=== PATIENT | female | born 1950 | race Caucasian/White ===

== ENCOUNTER 2023-07-26 13:39 | Emergency (ER) | payer MEDICARE, OTHER, SELFPAY ==
[2023-07-26 13:47] VITALS: BP 133/60
[2023-07-26 14:05] LABS: % Basophils 0.4 % (0-2); % Eosinophils 0.5 % (0-6); % Immature Granulocytes 0.2 % (0-0.5); % Lymphocytes 24.5 % (20.5-51.1); % Monocytes 10.8 % (1.7-9.3); % Neutrophils 63.6 % (42.2-75.2); Absolute Lymphocytes 1.3 10^3/uL (1.2-3.4); Absolute Monocytes 0.6 10^3/uL (0.1-0.6); Absolute Neutrophils 3.5 10^3/uL (1.4-6.5); Hematocrit 35.6 % (37.0-47.0); Mean Corp Hgb Conc. 33.7 g/dL (33.0-37.0); Mean Corpuscular Hgb 29.3 pg (27.0-31.0); Mean Platelet Volume 9.3 fL (7.4-10.4); Nucleated Red Blood Cells % 0 %; Platelet Count 243 10^3/uL (130-400); Red Blood Cell Count 4.09 10^6/uL (4.20-5.40); Red Cell Dist. Width 13.7 % (11.5-14.5); White Blood Cell Count 5.5 10^3/uL (4.8-10.8)
[2023-07-26 14:21] LABS: ALT (SGPT) 11 U/L (0-35); AST (SGOT) 24 U/L (14-36); Albumin 4.1 g/dl (3.5-5.0); Alkaline Phosphatase 63 U/L (38-126); Blood Urea Nitrogen 17 mg/dl (7-17); Calcium 9.7 mg/dl (8.4-10.2); Carbon Dioxide 32 mmol/L (22-30); Chloride 99 mmol/L (98-107); Glucose 85 mg/dl (70-99); Potassium 4.8 mmol/L (3.5-5.1); Sodium 137 mmol/L (135-145); Total Protein 6.8 g/dl (6.3-8.2); eGFR > 60.00
[2023-07-26 16:15] LABS: Urine Albumin Negative (Neg - Trace); Urine Bilirubin Negative (Negative); Urine Character Clear (Clear); Urine Color Yellow; Urine Glucose Negative (Negative); Urine Ketone Negative (Negative); Urine Leukocyte 1+ (Negative); Urine Nitrite Negative (Negative); Urine Occult Blood Negative (Negative); Urine Urobilinogen Negative (Neg - 1+); Urine pH 6.5 (5.0-9.0)
[2023-07-26 16:24] LABS: Urine Bacteria Few (Negative); Urine Red Blood Cell 0-2 /HPF (0-2)
--- NOTE | 2023-07-26 16:32 | ED.GENMED ---
History of Present Illness
General
Chief Complaint: Fever
Time Seen by Provider: 07/26/23 15:13
Travel History
Have you had any contact with someone who has COVID-19?: No
Do you have any symptoms of coronavirus? Fever > 100 degrees, chills, cough, shortness of breath, sore throat, loss of taste or smell, muscle aches, or headache?: No
History of Present Illness
History of Present Illness:
73-year-old female with history of Parkinson's disease presents for evaluation of increased tremors and generalized weakness. She has had a hard time walking today. She also notes urinary urgency and no overall warm sensation. Her was
convinced that she had a fever today. She has not taken any antipyretics. She denies any coughing, shortness of breath, chest pain, abdominal pain, nausea, or vomiting. She has been compliant with all of her parkinsonian medications
Past History
Past History
ED Past Medical History: Cancer and Other (parkinsons)
ED Past Surgical History: Other
Social History
Tobacco: Non-smoker
Alcohol: None
Drug: None
Personal:
Living: with family
Review of Systems
Review of Systems
Allergies reviewed?: Yes
All Other Systems: ROS reviewed and negative except as documented in HPI and ROS
Phy Exam
Physical Exam
Physical Exam:
GEN: Well appearing, NAD, WDWN
HEENT: Oral mucosa moist, no scleral icterus
Cardiac: Regular rate
Lung: No respiratory distress, no tachypnea
MSK: No gross deformity or injuries
Skin: Good color, no pallor or jaundice, no rashes
Neuro: AO x3, moves all extremities freely, resting extremity tremor noted, bilateral upper and lower extremity strength is 5 out of 5 in all kern of flexion and extension
Psych: Calm, cooperative
Course
Orders/Labs/Results
Orders:
Orders
07/26/23 13:56
CMP [Comprehensive Metabolic Panel] Urgent
Complete Blood Count/With Diff Urgent
07/26/23 16:02
Urinalysis Reflex To Culture Urgent
Date Specimen was Collected: 07/26/23
Time Specimen was Collected: 16:01
Urine Microscopic Reflex Cult Urgent
Urine Culture Urgent
MARY Source: U
Specimen Description:
Date Specimen was Collected: 07/26/23
Time Specimen was Collected: 16:01
07/26/23 16:32
Fosfomycin [Monurol] 3 gm PO ONCE ONE
Abnormal Lab Results
07/26/23 07/26/23
13:56 16:02
RBC 4.09 L 10^6/uL
(4.20-5.40)
Hct 35.6 L %
(37.0-47.0)
Monocytes % 10.8 H %
(1.7-9.3)
Carbon Dioxide 32 H mmol/L
(22-30)
Creatinine 0.5 L mg/dL
(0.6-1.0)
Leukocyte Esterase Rfl 1+ A
(Negative)
Urine Bacteria (Reflex) Few A
(Negative)
07/26/23 13:56
07/26/23 13:56
Vital Signs
Initial and Last Documented VS:
Initial Vital Signs
Temp Pulse Resp BP Pulse Ox
98.2 F 50 16 133/60 100
07/26/23 13:47 07/26/23 13:47 07/26/23 13:47 07/26/23 13:47 07/26/23 13:47
Last Documented Vital Signs
Temp Pulse Resp BP Pulse Ox
98.2 F 50 16 133/60 100
07/26/23 13:47 07/26/23 13:47 07/26/23 13:47 07/26/23 13:47 07/26/23 13:47
MDM/Problems Addressed
MDM/Problems Addressed:
Patient does report urinary urgency and is noted to have bacteriuria thus we will treat his urinary tract infection causing worsening of Parkinson symptoms. Labs are otherwise unremarkable. Discussed outpatient neurology follow-up
*Critical Care Note
Total Time (30-74mins, 75-104mins- exclusive of procedures): Not Applicable
ED Attending Note
-
Portions of this chart may have been created with voice recognition software.� Occasional wrong word or��sound alike� substitutions may have occurred due to the inherent limitations of voice recognition software.
Discharge Plan
Departure
Patient Disposition: Home (Routine Discharge)
Date of Disposition: 07/26/23
Time of Disposition: 16:32
Patient with high blood pressure during this ER visit?: No
Discharge Problem:
Acute cystitis
Instructions: Urinary Tract Infection, Adult (DC)
Prescriptions:
No Action
lorazepam 0.5 MG tablet
0.5 mg PO HS
Patient Comments:
FAMILY STATED SHE TOOK AN ATIVAN AT 1515 TODAY TO HELP HER CALM DOWN
timolol [Betimol] 15 ML drops
1 drp RIGHT EYE DAILY
Lodamax
1 drp RIGHT EYE DAILY
Patient Comments:
UNSURE OF SPELLING OF MEDICATION
sulfamethoxazole-trimethoprim 1 TABLET tablet
1 tab PO BID Qty: 10 1RF
Referrals:
Israel Hairston MD [Family Provider] -
Activity Restrictions/Additional Instructions:
Your urinalysis is suggestive of a urinary tract infection. The antibiotic we have prescribed you should improve your Parkinson's symptoms over the next 1 to 2 days. If your symptoms or not improving please follow-up with your neurologist to
discuss further care
Interventions
Interventions:
*General Assessment Last Done: 07/26/23 13:47
*ED COVID-19 Vaccine History Last Done: 07/26/23 13:47
*Nursing Disposition Last Done: 07/26/23 17:00
ED- Neurological Assessment Last Done: 07/26/23 16:00
ED-Skin Assessment Last Done: 07/26/23 16:00
Discharge Date and Time
Discharge Date/Time: 07/26/23 17:00
[2023-07-26] MEDS: MONUROL 3 GM PO (16:40)
== END 2023-07-26 17:00 | disposition home or self-care (01) ==
LOC: EMR 13:39
PROVIDERS: Emergency Medicine; Physician Assistant; EMERGENCY PHYSICIAN Emergency Medicine; FAMILY PHYSICIAN Family Medicine
DX: N30.00 Acute cystitis without hematuria (principal); G20.A1 Parkinson's disease without dyskinesia, without mention of fluctuations
CPT/HCPCS: 99283; 80053; 81003; 81015; 85025; 87086

== ENCOUNTER 2023-07-28 20:57 | Observation (INO) | payer MEDICARE, OTHER, SELFPAY ==
[2023-07-28] VITALS (9 sets, daily range): BP systolic 112–163; BP diastolic 54–77; BMI 22.7
[2023-07-28 14:00] LABS: % Basophils 0.3 % (0-2); % Eosinophils 0.5 % (0-6); % Immature Granulocytes 0.3 % (0-0.5); % Lymphocytes 26.3 % (20.5-51.1); % Monocytes 9.5 % (1.7-9.3); % Neutrophils 63.1 % (42.2-75.2); Absolute Lymphocytes 2.1 10^3/uL (1.2-3.4); Absolute Monocytes 0.8 10^3/uL (0.1-0.6); Hematocrit 39.7 % (37.0-47.0); Mean Corp Hgb Conc. 32.7 g/dL (33.0-37.0); Mean Corpuscular Hgb 29.3 pg (27.0-31.0); Mean Corpuscular Volume 89.6 fL (81.0-99.0); Mean Platelet Volume 9.5 fL (7.4-10.4); Nucleated Red Blood Cells % 0 %; Platelet Count 232 10^3/uL (130-400); Red Blood Cell Count 4.43 10^6/uL (4.20-5.40); Red Cell Dist. Width 13.5 % (11.5-14.5); White Blood Cell Count 7.9 10^3/uL (4.8-10.8)
[2023-07-28 14:07] LABS: ALT (SGPT) 12 U/L (0-35); AST (SGOT) 30 U/L (14-36); Albumin 4.8 g/dl (3.5-5.0); Alkaline Phosphatase 81 U/L (38-126); Blood Urea Nitrogen 16 mg/dl (7-17); Carbon Dioxide 32 mmol/L (22-30); Chloride 102 mmol/L (98-107); Glucose 79 mg/dl (70-99); Sodium 138 mmol/L (135-145); Total Bilirubin 1.2 mg/dl (0.2-1.3); Total Protein 7.8 g/dl (6.3-8.2); eGFR > 60.00
[2023-07-28 14:17] LABS: Urine Albumin Negative (Neg - Trace); Urine Bilirubin Negative (Negative); Urine Character Clear (Clear); Urine Color Straw; Urine Glucose Trace (Negative); Urine Ketone Negative (Negative); Urine Leukocyte Negative (Negative); Urine Nitrite Negative (Negative); Urine Occult Blood Negative (Negative); Urine Specific Gravity 1.015 (<1.030); Urine Urobilinogen Negative (Neg - 1+)
--- NOTE | 2023-07-28 15:50 | EDRN ---
Addendum entered by Nasra Ye RN 07/28/23 15:53:
Spouse states med is due at 16:30 and will give it then.
Original Note:
Dr. Al said it is okay for pt to take her parkinson med Carvidopa/levidopa . Spouse was informed and will give her that med when EKG is done.
--- NOTE | 2023-07-28 15:56 | EDRN ---
Dr. Al in room w/ pt.
--- NOTE | 2023-07-28 16:05 | ED.GENMED ---
History of Present Illness
General
Chief Complaint: Weakness
Source: patient, records, family and ambulance crew
Exam Limitations: none
Time Seen by Provider: 07/28/23 15:37
Nursing documentation reviewed up to this point in time: agreed with
Travel History
Have you had any contact with someone who has COVID-19?: No
Do you have any symptoms of coronavirus? Fever > 100 degrees, chills, cough, shortness of breath, sore throat, loss of taste or smell, muscle aches, or headache?: No
History of Present Illness
History of Present Illness:
73 female parkinsons x 3 years, followed by Ashvin Mcnulty
2nd Er visit with weakness, dw uti, given monorul a few days ago, no much different-worse per the spouse
low grade fever
mild headache
oriented x 3 here
spouse says she looks nearly incoherent when EMS arrived, he was concerned for a CVA
no seizures
still with mild dysuria
no abd pain
no alcohol
no extra med doses
Past History
Past History
ED Past Medical History: Cancer and Other (parkinsons)
ED Past Surgical History: Other
Social History
Tobacco: Non-smoker
Alcohol: None
Drug: None
Personal:
Living: with family
Employment: Retired
Review of Systems
Review of Systems
All Other Systems: Not applicable
Constitutional: Reports fever (low grade) and fatigue
EENT: Reports no symptoms
Respiratory: Reports no symptoms
Cardiac: Reports no symptoms
ABD/GI: Reports no symptoms
: Reports dysuria
Musculoskeletal: Reports no symptoms
Skin: Reports no symptoms
Neurological: Reports weakness; Denies dizzy, headache or numbness
Endocrine: Reports no symptoms
Phy Exam
General Physical Exam
General Presentation: well appearing
General Skin: warm
General Chronic Disability: other (tremors)
Cardiovascular Exam
Cardiovascular Exam: regular rate/rhythm
Pulmonary Exam
Pulmonary Exam: lungs clear
Gastrointestinal Exam
Gastrointestinal Exam: non tender
Neurological Exam
Neurological Exam: alert and oriented x3
Musculoskeletal Exam
Musculoskeletal Exam: no edema
Psychiatric Exam
Psychiatric Exam: normal mood/affect
Course
Orders/Labs/Results
Orders:
Orders
07/28/23 13:37
CBC/With Diff [Complete Blood Count/With Diff] Urgent
CMP [Comprehensive Metabolic Panel] Urgent
07/28/23 13:55
Urinalysis Reflex To Culture Urgent
Date Specimen was Collected: 07/28/23
Time Specimen was Collected: 13:53
Urine Culture Urgent
MARY Source: U
Specimen Description:
Date Specimen was Collected: 07/28/23
Time Specimen was Collected: 13:53
Comment: Add on by Russel Al
07/28/23 15:38
Add On- LAB Urgent
Tests Added?: urine culture
Electrocardiogram (*1) Urgent
Reason for Study: QTc Monitoring
EKG- Treatment ONCE
Urine Culture Urgent
MARY Source: Urine
Specimen Description:
07/28/23 16:00
CT Head W/o Iv Contrast Urgent
Comment:
Reason For Exam: confusion
0.9% Sodium Chloride 1000 ml [Nss] 1,000 ml IV BOLUS
CR Chest - 2 Views Urgent
Comment:
Reason For Exam: weakness
07/28/23 16:11
0.9% Sodium Chloride 1000 ml [Nss] 1,000 ml IV BOLUS
07/28/23 16:23
COVID-19 Antigen Urgent
Source: Nasal Swab
Lactic Acid Urgent
Blood Culture Q30M
MARY Source: Blood/Venous
Specimen Description:
Influenza A+B Rapid Molecular Urgent
MARY Source: Nasal Swab
Specimen Description:
07/28/23 16:34
Blood Culture Q30M
MARY Source: Blood/Venous
Specimen Description:
07/28/23 16:48
Morphine Sulfate 1 mg IV NOW STA
07/28/23 16:58
Acetaminophen [Tylenol] 650 mg PO NOW STA
Abnormal Lab Results
07/28/23 07/28/23
13:37 13:55
MCHC 32.7 L g/dL
(33.0-37.0)
Absolute Monos (auto) 0.8 H 10^3/uL
(0.1-0.6)
Monocytes % 9.5 H %
(1.7-9.3)
Carbon Dioxide 32 H mmol/L
(22-30)
Creatinine 0.5 L mg/dL
(0.6-1.0)
Urine Glucose Trace A
(Negative)
07/28/23 13:37
07/28/23 13:37
Vital Signs
Initial and Last Documented VS:
Initial Vital Signs
Temp Pulse Resp BP Pulse Ox
98.1 F 58 16 163/73 100
07/28/23 13:15 07/28/23 13:15 07/28/23 13:15 07/28/23 13:15 07/28/23 13:15
Last Documented Vital Signs
Temp Pulse Resp BP Pulse Ox
98.1 F 67 16 124/62 97
07/28/23 13:15 07/28/23 17:27 07/28/23 17:27 07/28/23 17:27 07/28/23 17:27
MDM/Problems Addressed
Differential Diagnosis Includes:
tme uti pne, viral over medicated dehydrated
MDM/Problems Addressed:
mental status change
Chronic conditions affecting care:
parkinsons
Chronic conditions affecting care: Neurological disorder
Acute Exacerbation and/or Progression of Chronic Illness: Neurological disorder
*Radiology
Radiology exam reviewed: preliminary read by ED provider
*Pulse Oximetry
Patient hypoxic: no
*EKG
Interpreted by ED Provider?: Yes
Interpretation: abnormal
Comparison EKG: no comparison EKG present
Heart Rate: 58
Rate: bradycardiac
Rhythm: sinus
Ischemia: non-specific ST changes
*Acid Blower Interpretation
Rate: normal
Interpretation: abnormal
Heart Rate: 60
Rhythm: sinus
*Critical Care Note
Total Time (30-74mins, 75-104mins- exclusive of procedures): Not Applicable
Data Reviewed
Review of Other/Old Records Reveals: Other (urine culture-multi organisms)
Update Note
Update Note:
5:30 PM labs noted urine noted, no fever viral swabs noted CT of the head chest x-ray been ordered
6:30 PM imaging noted patient is a bit brighter than earlier, is still tremulous, reviewed results of labs and imaging with spouse and patient
My thought was that she was stable to follow-up with her PCP and neurologist as she has an appoint with neurology tomorrow
Spouse states he does not feel comfortable taking her home does they can care for her current state does not have a wheelchair etc.
ED Attending Note
-
Portions of this chart may have been created with voice recognition software.� Occasional wrong word or��sound alike� substitutions may have occurred due to the inherent limitations of voice recognition software.
Discharge Plan
Departure
Prescriptions:
No Action
lorazepam 0.5 MG tablet
0.5 mg PO HS
Patient Comments:
FAMILY STATED SHE TOOK AN ATIVAN AT 1515 TODAY TO HELP HER CALM DOWN
timolol [Betimol] 15 ML drops
1 drp RIGHT EYE DAILY
Lodamax
1 drp RIGHT EYE DAILY
Patient Comments:
UNSURE OF SPELLING OF MEDICATION
sulfamethoxazole-trimethoprim 1 TABLET tablet
1 tab PO BID Qty: 10 1RF
Referrals:
NONE,* [Active] -
Interventions
Interventions:
*Risk Screen - Suicide Last Done: 07/28/23 16:09
*General Assessment Last Done: 07/28/23 16:09
*Neglect/Abuse Screening Last Done: 07/28/23 16:09
ED- Fall Risk Assessment Last Done: 07/28/23 16:09
*ED COVID-19 Vaccine History Last Done: 07/28/23 15:57
ED- Cardiac Assessment Last Done: 07/28/23 16:30
ED- Neurological Assessment Last Done: 07/28/23 16:30
ED- Pulmonary Assessment Last Done: 07/28/23 16:30
[2023-07-28] MEDS: NSS 1000 IV ×2 (16:35→22:04)
[2023-07-28] MEDS: TYLENOL 650 MG PO (17:15)
[2023-07-28 17:21] LABS: COVID-19 Antigen Negative (Negative)
--- NOTE | 2023-07-28 17:29 | EDRN ---
Pt OOB to commode w/ moderate assist of one. Pt very tremorous at this time and states nableto walk to BR.
--- NOTE | 2023-07-28 18:29 | EDRN ---
Dr. Al in to see pt at this time.
--- NOTE | 2023-07-28 20:42 | HPS.HSE ---
Addendum entered and electronically signed by Michael Fields DO 07/28/23 22:17:
Addendum: Note - please contact / call if he is not present at bedside to discuss findings recommendations.
Original Note:
Family Physician
-
Family Physician: Israel Hairston
Chief Complaint
-
Weakness, Fatigue
History of Present Illness
Patient is a 73y F with PMH significant for Parkinson's disease, breast cancer and hypothyroidism who presents to ED for evaluation of weakness and fatigue. History obtained from patient and her family at the bedside. Family states that patient
was diagnosed with Parkinson's disease in 2019. She is followed by Dr. Mcnulty. There have been no recent medication changes or dose adjustments recently.
Patient has had intermittent episodes of 'clammy' feeling, increased fatigue, increased tremulousness and nearly unresponsiveness over the past several days.
She felt very well on Thursday, but on Thursday was so weak she could barely move / function and so presented to the ED at that time.
Patient was diagnosed with a UTI and treated with a single dose of Fosfomycin. She has since been called and informed that her urine culture was negative. Patient denies having any urinary complaints at any point.
Yesterday she again felt fairly normal and was able to complete her ADLs.
Today she was again clammy and weak. She was nearly unresponsive this evening - she would attempt to answer questions, but with soft / mumbled responses. Family brought her back to the ED for evaluation.
No other focal complaints including fevers / chills, cough, N/V/D, etc.
Medical History
Past Medical History
Past Medical History: Reports Other
Additional Past Medical History:
Parkinson's Disease
Fuchs Disease
Hypothyroidism
Breast Cancer
Past Surgical History: Reports Other
Additional Past Surgical History:
Bilateral Corneal Transplants
Right Lumpectomy
T&A
Left Oophorectomy
Bilateral Tubal Ligation
Social History
Tobacco: Former Smoker (Quit smoking 40 years ago.)
Alcohol: None
Drug: None
Personal:
Living: With Family
Family History
Family History: Not pertinent
Allergies / Home Medications
Allergies reflects when Allergies were last updated in [employer].
Home Medications with original date entered in [employer]
Allergy/Medication List:
Allergies
Allergy/AdvReac Type Severity Reaction Status Date / Time
No Known Allergies Allergy Verified 07/28/23 13:14
Home Medications
loteprednol etabonate 0.5 % eye gel drops (Lotemax) 1 drp BOTH EYES BID 09/19/09
aspirin 81 mg tablet,delayed release 81 mg PO QPM 07/28/23
atorvastatin 80 mg tablet 80 mg PO QPM 07/28/23
carbidopa ER 25 mg-levodopa 100 mg tablet,extended release 2 tab PO TID@0600,1100,1630 07/28/23
carbidopa ER 25 mg-levodopa 100 mg tablet,extended release 3 tab PO DAILY@2200 07/28/23
cholecalciferol (vitamin D3) 50 mcg (2,000 unit) tablet (Vitamin D3) 50 mcg PO Q48H@1800 07/28/23
cholecalciferol (vitamin D3) 50 mcg (2,000 unit) tablet (Vitamin D3) 100 mcg PO Q48H@1800 07/28/23
miki root extract 1 tab PO QPM 07/28/23
levothyroxine 75 mcg tablet 75 mcg PO MOTUWETHFRSA 07/28/23
pramipexole 0.125 mg tablet 0.125 mg PO TID@0600,1400,2200 07/28/23
timolol maleate 0.5 % eye drops 1 drp BOTH EYES BID 07/28/23
Review of Systems
-
History Source: Patient
A 12 point ROS was completed and negative except as noted: Yes
Constitutional: Reports Fatigue and Other (clammy); Denies Fever or Chills
EENT: Denies Sore Throat
Respiratory: Denies Cough or Trouble Breathing
Cardiac: Denies Chest Pain or Palpitations
Abdomen/GI: Denies Abdominal Pain, Nausea, Vomiting or Diarrhea
: Denies Dysuria, Frequency or Flank Pain
Musculoskeletal: Denies Joint Pain or Edema
Neurological: Denies Dizzy or Headache
Psych: Reports Anxiety; Denies Depression
Physical Exam
Vital Signs
Vital Signs
Temp Pulse Resp BP Pulse Ox
98.1 F 68 20 118/54 97
07/28/23 13:15 07/28/23 20:00 07/28/23 20:00 07/28/23 20:00 07/28/23 20:00
Physical Exam
General: Other (73y F with R sided tremulousness and no acute distress.)
HEENT: Moist mucous membranes and PERRLA
Respiratory: Clear; No Wheezes, Rales or Rhonchi
Cardiac: S1/S2, Regular Rhythm and Murmur (II/ [place])
GI: Soft, Non Tender, Non Distended and Normal Bowel Sounds
Musculoskeletal: No Clubbing, No Cyanosis and No Edema
Neuro: Other (Tremulous on the R - especially the RUE. She has no evidence of cogwheeling or rigidity.)
Psych: Anxious; No Agitated
Laboratory Results
-
07/28/23 13:37
07/28/23 13:37
Laboratory Results
Lactic Acid 1.0 mmol/L (0.7-2.0) 07/28/23 16:23
Total Bilirubin 1.2 mg/dl (0.2-1.3) 07/28/23 13:37
AST 30 U/L (14-36) 07/28/23 13:37
ALT 12 U/L (0-35) 07/28/23 13:37
Alkaline Phosphatase 81 U/L (38-126) 07/28/23 13:37
Impression/Plan
-
A/P: Patient is a 73y F with PMH significant for Parkinson's disease and hypothyroidism who presents to ED complaining of intermittent periods of significant fatigue, lethargy and clammy feeling.
Fatigue / Weakness
- Observe overnight for further evaluation and treatment.
- Evaluation in the ED is essentially unremarkable thus far.
- No evidence of acute infectious etiology, etc.
- Suspect that symptoms may reflect periods of orthostasis secondary to multisystem atrophy / Parkinsonism.
- IVF support overnight.
- Follow orthostatic vital signs.
- PT / OT evaluations.
- Follow fever curve, labs / lytes, etc.
- Monitor for any new / focal complaints.
Parkinson's Disease
- No evidence on exam of significant rigidity.
- Pos tremulousness as noted.
- Continue current medications (Sinemet and Mirapex) with no changes at present.
- Neurology evaluation for additional recommendations.
Hypothyroidism
- Check TFTs to ensure current replacement is adequate.
- Continue T4 replacement.
Fuchs Disease
s/p Corneal Transplants
- Stable. Continue current eye drop regimen.
DVT Prophylaxis: SCDs
Code Status: Full
[2023-07-28] MEDS: MIRAPEX 0.125 MG PO (22:16)
[2023-07-28] MEDS: SINEMET CR 25-100 (EXTENDED RELEASE) 3 TABLET PO (22:23)
[2023-07-28] MEDS: SEROQUEL 12.5 MG PO (22:48)
[2023-07-29] VITALS (7 sets, daily range): BP systolic 122–142; BP diastolic 57–96; PULSE 63–65
[2023-07-29 06:56] LABS: Hematocrit 34.6 % (37.0-47.0); Hemoglobin 11.3 g/dL (12.0-16.0); Mean Corp Hgb Conc. 32.7 g/dL (33.0-37.0); Mean Corpuscular Hgb 29.4 pg (27.0-31.0); Mean Corpuscular Volume 90.1 fL (81.0-99.0); Mean Platelet Volume 9.7 fL (7.4-10.4); Platelet Count 210 10^3/uL (130-400); Red Blood Cell Count 3.84 10^6/uL (4.20-5.40); Red Cell Dist. Width 13.9 % (11.5-14.5); White Blood Cell Count 5.6 10^3/uL (4.8-10.8)
[2023-07-29 07:26] LABS: ALT (SGPT) < 10 U/L (0-35); AST (SGOT) 24 U/L (14-36); Albumin 3.6 g/dl (3.5-5.0); Alkaline Phosphatase 63 U/L (38-126); Blood Urea Nitrogen 13 mg/dl (7-17); Calcium 9.2 mg/dl (8.4-10.2); Carbon Dioxide 27 mmol/L (22-30); Chloride 103 mmol/L (98-107); Direct Bilirubin 0.4 mg/dl (0.0-0.4); Estimated Creatinine Clearance 69 ml/min; Glucose 84 mg/dl (70-99); Magnesium 2.1 mg/dl (1.6-2.3); Potassium 4.1 mmol/L (3.5-5.1); Sodium 137 mmol/L (135-145); Total Bilirubin 1.2 mg/dl (0.2-1.3); Total Protein 6.1 g/dl (6.3-8.2); eGFR > 60.00
[2023-07-29 07:39] LABS: TSH Reflex To Free T4 2.02 uIU/ml (0.47-4.68)
[2023-07-29] MEDS: TIMOPTIC 0.5% OPHTHALMIC SOLUTION 1 DROP BOTH EYES (08:36)
[2023-07-29] MEDS: SYNTHROID 75 MCG PO (08:38)
[2023-07-29] MEDS: SINEMET CR 25-100 (EXTENDED RELEASE) 2 TABLET PO ×2 (08:38→13:18)
[2023-07-29] MEDS: MIRAPEX 0.125 MG PO ×2 (08:38→13:18)
[2023-07-29] MEDS: NSS 1000 IV (08:40)
--- NOTE | 2023-07-29 08:50 | CON.NEURO4 ---
Addendum entered and electronically signed by Jose D eKlsey MD 07/29/23 15:45:
Studies reviewed.
I have personally examined the patient. I reviewed and agree with the APPLICATION SPEC's Note.
My addenda:
Awake, interactive. Closes eyes after approximately 5 seconds. No acute distress.
Speech mildly hypophonic.
Follows 2-step requests w/ difficulty. Distal right greater than left tremor with action, low amplitude.
Extra-ocular movements grossly intact.
Facial movements full and symmetric. Hearing intact to normal conversational volume.
Normal UE movements bilaterally.
Neck: full ROM.
Chest: no dyspnea
Heart: no JVD
Ext: (-) Clubbing, (-) Cyanosis, (-) Edema
IMPRESSIONS/RECOMMENDATIONS:
Abrupt onset of worsening of underlying encephalopathy which is most likely secondary to combination of advanced Parkinson's disease and orthostatic hypotension
Check orthostatic blood pressures
Increase routine carbidopa/levodopa dosing from 2 tabs 3 times a day and 3 tabs at bedtime to dosing of 3 tabs 4 times a day
Patient likely will require the use of memory stabilizing medication, rivastigmine, as outpatient
Occupational Therapy to improve tremor
Physical therapy to improve gait
Speech therapy to ensure absence of dysphagia
D/W patient / family
All questions answered.
Patient should continue to follow with usual outpatient neurologist.
Original Note:
Consultation - Neurology 4
-
CONSULTING PHYSICIAN: Jose D Klesey MD
REFERRING PHYSICIAN: Hospitalists/Dr. Fields
DICTATED BY: ANTONIO Chen
DATE/TIME OF REQUEST: 07/28/23
DATE/TIME OF CONSULTATION: 07/29/23
Reason for Consultation: Weakness
History of Present Illness:
This is a 73-year-old right-handed female who has presented to the hospital on 07/28/23 with report of weakness, fatigue, and urinary urgency. Patient was previously evaluated in the ER on 07/26/23 with similar symptoms, she was thought to have a UTI
and was discharged home with oral antibiotics. Urine culture came back negative. Patient's symptoms continued, prompting her to bring her back to the ER for evaluation. Patient is followed by Neurology Dr. Recio as an outpatient for
Parkinson disease and cognitive impairment. She is on two 25-100 carbidopa/levodopa tablets TID and three 25-100 tablets at HS. Pramipexole 0.125mg TID was added recently for gait dysfunction. She is not on any memory stabilizing medications.
Currently, she endorses weakness, bilateral eye drooping due to Fuch's, urinary frequency, and anosmia. She also reports intermittent difficulty swallowing pills. She denies any headache, dizziness, vision changes, hallucinations, speech difficulty,
numbness, chest pain, palpitations, and shortness of breath. She reports 'freezing' episodes in the past but they did not feel similar to how she currently feels.
Past Medical History: Parkinson disease, Fuchs disease, right breast cancer s/p lumpectomy/radiation, hypothyroidism, HLD, osteopenia, sebaceous cyst
Surgical History: Cornea transplant 2006, 2012, and 2019, right lumpectomy
Family History: Two cousins and an aunt with a tremor.
Social History: Former tobacco. Denies alcohol and illicit drug use.
Allergies: No known allergies.
Home Medications:
Review of Symptoms:
Patient denies any fever, headache, chest pain, shortness of breath, GI or symptoms.
�Per the HPI.�All systems are reviewed negative except above.
Physical Exam:
The patient is afebrile, abdomen is nondistended, breathing is unlabored, skin is warm and dry, no edema.
Neurologic Examination:
The patient is awake, alert and oriented x 3, poor historian. Most recent holiday /, next holiday . She is able to follow commands and answer questions appropriately. There is no aphasia or dysarthria. On cranial nerve
assessment, pupils are 3 mm bilateral, round and reactive to light and accommodation. Bilateral ptosis. Visual kern are full. Extraocular movements are intact, sacchades slightly slow. Facial sensations are intact and bilaterally symmetrical,
there is no facial asymmetry. Hearing is intact bilaterally to normal conversation volume. Tongue palate and uvula are midline. Sternocleidomastoid strengths are full bilaterally. Motor strengths are 5-/5 bilateral upper and 2/5 bilateral lower
extremities on medical research [place] scale. There is no drift in BUE. Low amplitude arrhythmic tremor most prominent in distal RUE, also in distal BLE. Deep tendon reflexes are 2+ bilateral upper and lower extremities and Babinski is absent
bilaterally. Sensation of vibration is moderately reduced in distal bilateral lower extremities. There was no extinction noted on double simultaneous stimulation. Coordination is intact by finger to nose bilaterally.
Lab Results: See below.
Neuro Imaging:
1. CT Head 07/28/23: No acute intracranial abnormality.
2. MRI brain 02/05/22: No acute intracranial abnormality. Mild chronic senescent changes are stable from the previous exam.
Differentials for the patient's presentation include:
1. Progression/exacerbation of Parkinson disease symptoms
2. Orthostasis
3. Fuch's disease with bilateral ptosis
Patient has the following risk factors for their symptoms: Parkinson disease
Recommendations:
-Sinemet 25-100 home dose increased to three tablets QID.
-Continue pramipexole 0.125mg TID
-PT/OT/ST evaluations
-MRI brain per Hospitalists service
-Follow-up with Neurology Dr. Recio as an outpatient
Discussed patient care with: Dr. Kelsey, the patient
Vital Signs and Labs
-
Vital Signs and Labs:
Vital Signs
Temp Pulse Resp BP Pulse Ox
97.7 F 72 20 142/68 99
07/29/23 08:41 07/29/23 08:41 07/29/23 08:41 07/29/23 08:41 07/29/23 08:41
Lab Results
07/29/23 06:23
07/29/23 06:23
Sodium 137 mmol/L (135-145) 07/29/23 06:23
Potassium 4.1 mmol/L (3.5-5.1) 07/29/23 06:23
BUN 13 mg/dl (7-17) 07/29/23 06:23
Glucose 84 mg/dl (70-99) 07/29/23 06:23
Calcium 9.2 mg/dl (8.4-10.2) 07/29/23 06:23
Medications
-
Active Medications
Generic Name Dose Route Start Last Admin
Trade Name Freq PRN Reason Stop Dose Admin
Acetaminophen 650 mg 07/28/23 21:07
Acetaminophen 325 Mg Tablet PO 08/25/23 21:06
Q4HPRN PRN
Mild Pain / Temp > 101
Aspirin 81 mg 07/29/23 18:00
Aspirin 81 Mg (Enteric Coated) Tablet PO 08/26/23 17:59
QPM CAROLYN
Atorvastatin Calcium 80 mg 07/29/23 18:00
Atorvastatin (Lipitor) 80 Mg Tablet PO 08/26/23 17:59
QPM CAROLYN
Carbidopa/Levodopa 3 tablet 07/28/23 22:00 07/28/23 22:23
Carbidopa (25 Mg) Levodopa (100 Mg) Extended Release Tablet PO 08/25/23 21:59 3 tablet
DAILY@2200 CAROLYN Administration
Carbidopa/Levodopa 3 tablet 07/29/23 16:30
Carbidopa (25 Mg) Levodopa (100 Mg) Extended Release Tablet PO 08/26/23 16:29
TID@0600,1100,1630 CAROLYN
Docusate Sodium 100 mg 07/29/23 08:00 07/29/23 08:38
Docusate Sodium 100 Mg Capsule PO 08/26/23 07:59 Not Given
BID CAROLYN
Sodium Chloride 1,000 mls @ 100 mls/hr 07/28/23 21:07 07/29/23 08:40
Nss IV 1,000 mls
.Q10H CAROLYN Administration
Levothyroxine Sodium 75 mcg 07/29/23 07:00 07/29/23 08:38
Levothyroxine 75 Mcg Tablet PO 08/26/23 06:59 75 mcg
DAILY AT 0700 CAROLYN Administration
Loteprednol 0 drop 07/29/23 08:00
Etabonate [Lotemax] BOTH EYES 08/26/23 07:59
0.5 % 1 Drop Both BID CAROLYN
Eyes Bid
Pramipexole Dihydrochloride 0.125 mg 07/28/23 22:00 07/29/23 08:38
Pramipexole 0.125 Mg Tablet PO 08/25/23 21:59 0.125 mg
TID@0600,1400,2200 CAROLYN Administration
Sennosides 8.6 mg 07/29/23 08:00 07/29/23 08:38
Sennosides (Senokot) 8.6 Mg Tablet PO 08/26/23 07:59 Not Given
BID CAROLYN
Sodium Chloride 0 flush 07/28/23 22:00
Sodium Chloride 0.9% (Flush) Syringe IV 08/25/23 21:59
PER PROTOCOL CAROLYN
Timolol Maleate 0 drop 07/29/23 08:00 07/29/23 08:36
Timolol 0.5% (Ophthalmic Solution) Bottle BOTH EYES 08/26/23 07:59 1 drop
BID CAROLYN Administration
Home Medications
Medication Instructions Recorded
loteprednol etabonate 0.5 % eye 1 drp BOTH EYES BID Eye Condition 09/19/09
gel drops (Lotemax)
aspirin 81 mg tablet,delayed 81 mg PO QPM Blood Clot 07/28/23
release Prevention/Tx
atorvastatin 80 mg tablet 80 mg PO QPM High Cholesterol 07/28/23
carbidopa ER 25 mg-levodopa 100 mg 2 tab PO TID@0600,1100,1630 07/28/23
tablet,extended release parkinson's disease
carbidopa ER 25 mg-levodopa 100 mg 3 tab PO DAILY@2200 parkinson's 07/28/23
tablet,extended release disease
cholecalciferol (vitamin D3) 50 50 mcg PO Q48H@1800 Supplement 07/28/23
mcg (2,000 unit) tablet (Vitamin
D3)
cholecalciferol (vitamin D3) 50 100 mcg PO Q48H@1800 Supplement 07/28/23
mcg (2,000 unit) tablet (Vitamin
D3)
miki root extract 1 tab PO QPM Supplement 07/28/23
levothyroxine 75 mcg tablet 75 mcg PO MOTUWETHFRSA Thyroid 07/28/23
pramipexole 0.125 mg tablet 0.125 mg PO TID@0600,1400,2200 07/28/23
Neurological Condition
timolol maleate 0.5 % eye drops 1 drp BOTH EYES BID Eye Condition 07/28/23
--- NOTE | 2023-07-29 11:15 | CM ---
CM met with patient and in room. Patient has multiple concerns regarding communication and care during the patient's stay in the ED. Patient's felt that he was not updated on patient's care and plan. Patient's stated
that patient is forgetful and she cannot be expected to remember everything that she is told. CM offered emotional support. CM offered to refer his complaints to ED nurse manager psychology. Patient's declined at this time.
CM discussed discharge planning. Patient's expressed concern that Medicare will not pay for home care. CM reassured that Medicare will cover medically necessary home care services. is agreeable to VN. CM updated [facility] RN
liaison with referral.
CM discussed [facility] letter. Patient's stated, 'Now this won't be covered.' CM discussed [employer] letter and patient's financial obligations regarding an observation stay. expressed understanding. Daughter was in room also.
PLAN: Home with [facility]
--- NOTE | 2023-07-29 12:17 | W.PN.HOSP.TC ---
Today's Communication/Plan
-
MRI and further mental status change workup
orthostasis treatment
follow Neuro recs
PT/OT
Assessment / Plan
Assessment / Plan
Assessment:
Fatigue/Weakness
change in mentation per family
- CT head negative. check brain MRI
- no infectious etiology
- + orthostasis, which is common with PD. Added abd binder and compression stockings
- IVF x 1 bag
- follow orthostatics
- PT/OT
Parkinson's Disease
- No evidence on exam of significant rigidity.
- Pos tremulousness as noted.
- Continue current medications (Sinemet and Mirapex). Family interested in dosing adjustment with potential BID or TID dosing if possible. Relayed to Neurology
Hypothyroidism
- TSH normal
- Continue T4 replacement.
Fuchs Disease
s/p Corneal Transplants
- Stable.�continue current eye drop regimen.
DVT Prophylaxis:�SCDs
Code Status:�Full
Anticipated Discharge: 24 - 48 hours
Subjective/Interval History
-
Date of Service: July 29, 2023
per , patient still foggy/confused
patient states 'dont feel right'
Objective Data
-
Labs:
Laboratory Results
07/29/23
06:23
WBC 5.6
Hgb 11.3 L
Hct 34.6 L
Plt Count 210
Sodium 137
Potassium 4.1
Chloride 103
Carbon Dioxide 27
BUN 13
Creatinine 0.4 L
Glucose 84
Calcium 9.2
Total Bilirubin 1.2
AST 24
ALT < 10
Alkaline Phosphatase 63
Vital Signs:
Vital Signs
Temp Pulse Resp BP Pulse Ox
97.7 F 72 20 142/68 99
07/29/23 08:41 07/29/23 08:41 07/29/23 08:41 07/29/23 08:41 07/29/23 08:41
I&O
07/28/23 07/29/23 07/30/23
06:59 06:59 06:59
Output Total 350 / 350
Balance -350 / -350
Physical Exam
-
General: No Apparent Distress
HEENT: Normocephalic and Atraumatic
Respiratory: Negative Wheezes or Rales
Cardiac: Regular Rhythm and S1/S2
GI: Soft
Genito-urinary: No Costovertebral Tender
Musculoskeletal: No Edema
Neuro: AO x 3
Psych: Calm
Data Reviewed
-
Total Time Spent with Patient (in minutes): 41
Labs: Labs Reviewed by me
--- NOTE | 2023-07-29 12:49 | VNURNOTE ---
Home Health Liaison spoke with patient's spouse Josesito by phone at 1200 to discuss [facility] nurse/therapy, visits, schedule and homebound status. Josesito is agreeable and understands that visits at home will be 2-3 x per week to assess and teach
medical management.
Josesito is aware that [facility] will contact them for start of care in 1-2 days after discharge from .
[facility] referral completed in [facility].
[2023-07-29] MEDS: TYLENOL 650 MG PO (13:21)
--- NOTE | 2023-07-29 15:48 | PTCARENOTE ---
Report tubed to [facility] [place] [facility]. Spoke w/ MOHINI Boykin.
[2023-07-29 15:54] LABS: Ammonia < 9 umol/L (9-30)
--- NOTE | 2023-07-29 16:47 | PTCARENOTE ---
updated on plan of care. He is unhappy w/ the plan and care provided. Emotional support provided to no avail. speaks down to staff. Demanding to speak w/ CM Edilia and Dr. Botello again. Both aware and currently at bedside.
--- NOTE | 2023-07-29 16:59 | CM ---
TARYN met with patient in room with Dr. Botello. Patient's is unhappy with care plan. Patient stated that he would prefer that patient be discharged to home with VN. Dr. Botello will await MRI results.
TARYN updated [facility] Liaison with plan for discharge today.
[2023-07-29 17:01] LABS: Folate 10.1 ng/ml (2.76-20); Vitamin B12 487 pg/ml (239-931)
--- NOTE | 2023-07-29 17:12 | W.DS.TRANS ---
DC Summary - Photogrammetry [employer]
-
Discharge Instructions:
Discharge Diagnosis/Procedures parkinsons disease, orthostatic hypotension,
change in mentation, possibly related to anxiety
. no acute pathology otherwise found on workup
Diet Regular
Activity As tolerated
Bathing Restrictions None
Other Services VN
Instructions:
Stand-Alone Forms:
Changes to Home Medications: Yes
Discharge Medications:
DC Medications w/original date entered in [facility]
loteprednol etabonate 0.5 % eye gel drops (Lotemax) 1 drp BOTH EYES BID Eye Condition 09/19/09
aspirin 81 mg tablet,delayed release 81 mg PO QPM Blood Clot Prevention/Tx 07/28/23
atorvastatin 80 mg tablet 80 mg PO QPM High Cholesterol 07/28/23
cholecalciferol (vitamin D3) 50 mcg (2,000 unit) tablet (Vitamin D3) 50 mcg PO Q48H@1800 Supplement 07/28/23
cholecalciferol (vitamin D3) 50 mcg (2,000 unit) tablet (Vitamin D3) 100 mcg PO Q48H@1800 Supplement 07/28/23
miki root extract 1 tab PO QPM Supplement 07/28/23
levothyroxine 75 mcg tablet 75 mcg PO MOTUWETHFRSA Thyroid 07/28/23
pramipexole 0.125 mg tablet 0.125 mg PO TID@0600,1400,2200 Neurological Condition 07/28/23
timolol maleate 0.5 % eye drops 1 drp BOTH EYES BID Eye Condition 07/28/23
carbidopa ER 25 mg-levodopa 100 mg tablet,extended release 3 tab PO QID parkinson's disease #360 tabs 07/29/23
Home Medication Changes
Sinemet QID
Pending Results: No
Total time spent discharging patient (in min): 45
[2023-07-29] MEDS: LIPITOR 80 MG PO (17:28)
[2023-07-29] MEDS: ASPIR LOW (ENTERIC COATED) 81 MG PO (17:28)
[2023-07-29] MEDS: NSS IV (17:41)
[2023-07-29] MEDS: SINEMET CR 25-100 (EXTENDED RELEASE) 3 TABLET PO (17:41)
== END 2023-07-29 17:48 | disposition home health service (06) ==
LOC: ED 20:57
PROVIDERS: Emergency Medicine; ADMITTING PHYSICIAN Hospitalist; ATTENDING PHYSICIAN Internal Medicine; CONSULT PHYSICIAN Psychiatry & Neurology Neurology; EMERGENCY PHYSICIAN Emergency Medicine; FAMILY PHYSICIAN Family Medicine
DX: R53.1 Weakness (principal); R53.83 Other fatigue; G20.A1 Parkinson's disease without dyskinesia, without mention of fluctuations; E86.0 Dehydration; I95.1 Orthostatic hypotension; E03.9 Hypothyroidism, unspecified; R50.9 Fever, unspecified; R51.9 Headache, unspecified; Z85.3 Personal history of malignant neoplasm of breast; Z11.52 Encounter for screening for COVID-19; Z87.440 Personal history of urinary (tract) infections; Z87.891 Personal history of nicotine dependence; Z79.82 Long term (current) use of aspirin; Z79.890 Hormone replacement therapy; Z94.7 Corneal transplant status
CPT/HCPCS: 51798; 70450; 70551; 71046; 80053; 81003; 82140; 82248; 82607; 82746; 83605; 83735; 84443; 85025; 85027; 87040; 87086; 87502; 87811; 93005; 96361; 96374; 99285; G0378

== ENCOUNTER 2023-09-21 18:05 | Inpatient (IN) | payer MEDICARE, OTHER, SELFPAY ==
[2023-09-21] VITALS (16 sets, daily range): BP systolic 106–176; BP diastolic 47–134; PULSE 60–68; BMI 21.4; BMI 20.9
[2023-09-21 13:16] LABS: % Basophils 0.5 % (0-2); % Eosinophils 1.1 % (0-6); % Immature Granulocytes 0.3 % (0-0.5); % Lymphocytes 18.1 % (20.5-51.1); % Monocytes 11.3 % (1.7-9.3); % Neutrophils 68.7 % (42.2-75.2); Absolute Eosinophils 0.1 10^3/uL (0-0.7); Absolute Lymphocytes 1.2 10^3/uL (1.2-3.4); Absolute Monocytes 0.7 10^3/uL (0.1-0.6); Absolute Neutrophils 4.4 10^3/uL (1.4-6.5); Hematocrit 34.2 % (37.0-47.0); Hemoglobin 11.3 g/dL (12.0-16.0); Mean Corpuscular Hgb 28.6 pg (27.0-31.0); Mean Corpuscular Volume 86.6 fL (81.0-99.0); Mean Platelet Volume 10.1 fL (7.4-10.4); Nucleated Red Blood Cells % 0 %; Platelet Count 251 10^3/uL (130-400); Red Blood Cell Count 3.95 10^6/uL (4.20-5.40); Red Cell Dist. Width 13.3 % (11.5-14.5); White Blood Cell Count 6.5 10^3/uL (4.8-10.8)
[2023-09-21 13:33] LABS: ALT (SGPT) < 10 U/L (0-35); AST (SGOT) 28 U/L (14-36); Alkaline Phosphatase 79 U/L (38-126); Blood Urea Nitrogen 11 mg/dl (7-17); Calcium 9.4 mg/dl (8.4-10.2); Carbon Dioxide 30 mmol/L (22-30); Chloride 98 mmol/L (98-107); Estimated Creatinine Clearance 69 ml/min; Glucose 91 mg/dl (70-99); Potassium 4.4 mmol/L (3.5-5.1); Sodium 130 mmol/L (135-145); Total Protein 6.6 g/dl (6.3-8.2); eGFR > 60.00
--- NOTE | 2023-09-21 14:08 | EDRN ---
the lab called this RN and stated that specimens were hemolyzed for the second time, this RN notified provider and will redraw
[2023-09-21 14:10] LABS: Troponin I < 0.012 ng/ml
[2023-09-21 14:30] LABS: TSH Reflex To Free T4 0.68 uIU/ml (0.47-4.68)
[2023-09-21 14:35] LABS: Magnesium 1.7 mg/dl (1.6-2.3); Phosphorus 3.6 mg/dl (2.5-4.5)
--- NOTE | 2023-09-21 15:15 | EDRN ---
the pt pressed the call fong and this RN entered the pts room, the pt stated that she needed to use the bathroom, the pt was unhooked from the monitor and the pt was able to ambulate to the bathroom and back to the stretcher with no issues, the pt
is resting in stretcher in the lowest position, side rails up x2, call fong within reach, HOB elevated, no c/o dizziness, light headedness or weakness, the pts stated to this RN, 'I haven't seen the doctor again, what's going on here? I want
to speak with him', this RN notified Dr. Velez, will continue to monitor the pt closely
--- NOTE | 2023-09-21 16:21 | ED.GENMED ---
History of Present Illness
General
Chief Complaint: Heart Rate Problem
Source: patient
Exam Limitations: none
Time Seen by Provider: 09/21/23 12:59
Nursing documentation reviewed up to this point in time: agreed with
Travel History
Have you had any contact with someone who has COVID-19?: No
Do you have any symptoms of coronavirus? Fever > 100 degrees, chills, cough, shortness of breath, sore throat, loss of taste or smell, muscle aches, or headache?: No
History of Present Illness
History of Present Illness:
73-year-old female with past medical history of Parkinson's disease who presents to the emergency department with her for evaluation of lightheadedness. Patient reports that symptoms have been intermittent for the past week today had an
episode that was much more intense and had near syncopal event. Today's episode happened when she change positions and had to hold her up to keep her from falling. says that he checked her blood pressure and it was about 86
systolic with a heart rate in the 40s. He gave her some orange juice and water and blood pressure improved slightly but heart rate did not. Patient was referred to the emergency room for assessment by primary doctor. Patient says she feels very
weak here but denies any other specific complaints�she no longer feels dizzy or lightheaded here. She denies any chest pain during this episode or here in the emergency room. Denies any shortness of breath. She denies any nausea, vomiting,
diarrhea recently. She denies any headache. Denies any abdominal or flank pain. She denies any recent adjustments to her medications.
Past History
Past History
ED Past Medical History: Cancer and Other (parkinsons)
ED Past Surgical History: Other
Social History
Tobacco: Non-smoker
Alcohol: None
Drug: None
Personal:
Living: with family
Employment: Retired
Review of Systems
Review of Systems
All Other Systems: ROS reviewed and negative except as documented in HPI and ROS
Constitutional: Denies fever or chills
EENT: Denies sore throat or runny nose
Respiratory: Denies cough or trouble breathing
Cardiac: Reports syncope (Near syncope); Denies chest pain, diaphoresis or palpitations
ABD/GI: Denies abdominal pain, nausea, vomiting or diarrhea
: Denies flank pain
Musculoskeletal: Denies neck pain or back pain
Neurological: Reports dizzy; Denies headache, weakness or numbness
Phy Exam
Physical Exam
Physical Exam:
General: Awake, alert, oriented x3; no acute distress
Head: Normocephalic, atraumatic
Eyes: Conjunctiva normal, EOMI, pupils equal round reactive to light bilaterally
Throat: Airway intact, handling secretions
Neck: Trachea midline, supple without meningismus
Lungs: Clear to auscultation bilaterally, no wheezing, rales, rhonchi
Heart: Bradycardia with regular rhythm, no murmurs, gallops, or rubs
Abd: Soft, non distended, nontender, no abdominal mass
Neuro: Cranial nerves grossly intact, speech fluid, generally weak but no focal weakness or numbness
Skin: no rash
Extremities: Warm well-perfused, atraumatic
Scores
Heart Failure Risk
Heart Failure Risk Score: Not Applicable
Heart Score for Chest Pain Patients
STEMI patient?: Not applicable
Withdrawal Assessment of Alcohol
Withdrawal Assessment Completed?: Not applicable
Course
Orders/Labs/Results
Orders:
Orders
09/21/23 12:45
Electrocardiogram (*1) Urgent
Reason for Study: Bradycardia / Tachycardia
EKG- Treatment ONCE
09/21/23 12:52
CMP [Comprehensive Metabolic Panel] Urgent
Complete Blood Count/With Diff Urgent
09/21/23 13:35
TSH Reflex To Free T4 Urgent
Troponin I Urgent
09/21/23 14:18
Magnesium Urgent
Phosphorus Urgent
09/21/23 16:15
Orthostatic VS- Treatment ONCE
Abnormal Lab Results
09/21/23
12:52
RBC 3.95 L 10^6/uL
(4.20-5.40)
Hgb 11.3 L g/dL
(12.0-16.0)
Hct 34.2 L %
(37.0-47.0)
Absolute Monos (auto) 0.7 H 10^3/uL
(0.1-0.6)
Lymphocytes % 18.1 L %
(20.5-51.1)
Monocytes % 11.3 H %
(1.7-9.3)
Sodium 130 L mmol/L
(135-145)
Creatinine 0.5 L mg/dL
(0.6-1.0)
09/21/23 12:52
09/21/23 12:52
Vital Signs
Initial and Last Documented VS:
Initial Vital Signs
Temp Pulse Resp BP Pulse Ox
37.0 C 48 18 106/56 100
09/21/23 12:42 09/21/23 12:42 09/21/23 12:42 09/21/23 12:42 09/21/23 12:42
Last Documented Vital Signs
Temp Pulse Resp BP Pulse Ox
37.0 C 44 16 116/47 100
09/21/23 12:42 09/21/23 13:45 09/21/23 13:45 09/21/23 13:00 09/21/23 13:45
MDM/Problems Addressed
Differential Diagnosis Includes:
Dysautonomia, orthostatic hypotension, vasovagal syncope, symptomatic bradycardia, dehydration, anemia, electrolyte derangement, dysrhythmia, thyroid dysfunction
MDM/Problems Addressed:
73-year-old female with a history of Parkinson's disease presents for evaluation after an episode of presyncope with change in position today�has been having intermittent dizziness/lightheadedness for the past week or 2. Today's episode was
associated with significant hypotension and bradycardia. Hypotension apparently improved with p.o. fluids but bradycardia did not. Vital signs show heart rate in the 40s here and mild diastolic hypotension with blood pressure 116/47. Plan to
place an IV check labs including CBC and CMP. Check thyroid studies. Check troponin. EKG shows sinus rhythm with a heart rate in the 40s, no AV block. Will monitor on telemetry reassess after the above.
Labs reviewed: CBC shows CBC shows stable anemia, CMP shows mild hyponatremia with acceptable glucose level. Troponin is undetectable. Thyroid studies normal. Patient remains bradycardic here in the emergency room says she still feels very weak.
Certainly positional changes could be related to dysautonomia from Parkinson's but given her persistent bradycardia will admit for continued monitoring on telemetry and consideration for cardiology consultation. Discussed with hospitalist for
admission.
Chronic conditions affecting care:
Parkinson's
*Pulse Oximetry
Patient hypoxic: no
*EKG
Heart Rate: 46
Rate: bradycardiac
Rhythm: sinus
[place]: normal axis
Interval: normal interval
QRS Pattern: normal QRS
Ischemia: no ischemia
*Critical Care Note
Total Time (30-74mins, 75-104mins- exclusive of procedures): Not Applicable
Data Reviewed
Review of Other/Old Records Reveals: Labs and Records
Source: patient, records and spouse
Patient Management
Discussion with other providers: Hospitalist (Discussed with hospitalist)
Escalation/DeEscalation of care consider admission/obs:
Admission indicated
ED Attending Note
-
Portions of this chart may have been created with voice recognition software.� Occasional wrong word or��sound alike� substitutions may have occurred due to the inherent limitations of voice recognition software.
Discharge Plan
Departure
Patient Disposition: Admit
Date of Disposition: 09/21/23
Time of Disposition: 16:30
Admit to doctor: Era
Presentation/result/management discussed w/ accepting MD/DO: Hospitalist
Discharge Problem:
Lightheadedness, Bradycardia
Prescriptions:
No Action
loteprednol etabonate [Lotemax] 0.5 % Drops,Gel
1 drp BOTH EYES BID
atorvastatin 80 mg tablet
80 mg PO QPM
aspirin 81 mg Tablet,Delayed Release (Dr/Ec)
81 mg PO QPM
levothyroxine 75 mcg tablet
75 mcg PO MOTUWETHFRSA@0600
timolol maleate 0.5 % drops
1 drp BOTH EYES BID
cholecalciferol (vitamin D3) [Vitamin D3] 50 mcg (2,000 unit) Tablet
50 mcg PO Q48H@1800
Rx Instructions:
09/21/2023, 1 tab taken on odd days, 2 tabs on even days.
cholecalciferol (vitamin D3) [Vitamin D3] 50 mcg (2,000 unit) Tablet
100 mcg PO Q48H@1800
Rx Instructions:
09/21/2023, 1 tab taken on odd days, 2 tabs on even days.
docusate sodium [Colace] 100 mg Capsule
100 mg PO DAILY
carbidopa-levodopa 25-100 mg tablet extended release
4 tab PO BID@0600,2200
carbidopa-levodopa 25-100 mg Tablet Extended Release
3 tab PO BID@1100,1630
lorazepam 0.5 mg Tablet
0.5 mg PO DAILY@2129
lorazepam 0.5 mg Tablet
0.5 mg PO DAILY PRN (Reason: anxiety)
docusate sodium 100 mg Capsule
100 mg PO DAILY PRN (Reason: constipation)
pramipexole 0.25 mg Tablet
0.25 mg PO TID@0600,1400,2200
sertraline 50 mg Tablet
50 mg PO DAILY@1100
mineral oil
1 tbsp PO Q48H@2129
Rx Instructions:
09/21/2023, 1 tbsp on odd days, 2 tbsp on even days.
mineral oil
2 tbsp PO Q48H@2130
Rx Instructions:
09/21/2023, 1 tbsp on odd days, 2 tbsp on even days.
Referrals:
Israel Hairston MD [Family Provider] -
Interventions
Interventions:
*Risk Screen - Suicide Last Done: 09/21/23 12:42
*General Assessment Last Done: 09/21/23 12:42
*Neglect/Abuse Screening Last Done: 09/21/23 12:42
ED- Fall Risk Assessment Last Done: 09/21/23 12:51
*ED COVID-19 Vaccine History Last Done: 09/21/23 12:51
ED- Cardiac Assessment Last Done: 09/21/23 12:51
ED- Neurological Assessment Last Done: 09/21/23 12:51
ED- Pulmonary Assessment Last Done: 09/21/23 12:51
[2023-09-21] MEDS: ATIVAN 0.5 MG PO ×2 (16:51→23:45)
[2023-09-21] MEDS: NSS 500 IV (16:53)
--- NOTE | 2023-09-21 17:46 | HPS.HSE ---
Family Physician
-
Family Physician: Israel Hairston
Chief Complaint
-
lightheadedness
History of Present Illness
73-year-old female with past medical history of Parkinson disease, breast cancer, hypothyroidism, Fuchs disease presenting for 'wooziness' occurring intermittently for the past week and today had an episode that was much more intense and almost
passed out. Today's episode happened when she changed positions and has had to be held up to keep her from falling. checked her blood pressure and it was 86 systolic with heart rate in the 40s. Patient denies any complaints here. She
denies feeling dizziness or lightheaded here. Denies any chest pain or shortness of breath. This is her third or fourth episode of this happening. Denies nausea vomiting or diarrhea. Denies any headache. Denies any abdominal or flank pain.
Denies any history of low blood pressures. Denies any history of low heart rate. Her Parkinson's disease has been getting worse.
Bilateral corneal transplant, right lumpectomy, left nephrectomy, bilateral tubal ligation
Medical History
Past Medical History
Past Medical History: Reports Other ( Parkinson disease, breast cancer, hypothyroidism, Fuchs disease)
Past Surgical History: Reports Other (Bilateral corneal transplant, right lumpectomy, left nephrectomy, bilateral tubal ligation)
Social History
Tobacco: Non-smoker
Alcohol: None
Drug: None
Family History
Family History: Not pertinent
Allergies / Home Medications
Allergies reflects when Allergies were last updated in [facility].
Home Medications with original date entered in [facility]
Allergy/Medication List:
Allergies
Allergy/AdvReac Type Severity Reaction Status Date / Time
No Known Allergies Allergy Verified 09/21/23 12:41
Home Medications
loteprednol etabonate 0.5 % eye gel drops (Lotemax) 1 drp BOTH EYES BID Eye Condition 09/19/09
aspirin 81 mg tablet,delayed release 81 mg PO QPM Blood Clot Prevention/Tx 07/28/23
atorvastatin 80 mg tablet 80 mg PO QPM High Cholesterol 07/28/23
cholecalciferol (vitamin D3) 50 mcg (2,000 unit) tablet (Vitamin D3) 50 mcg PO Q48H@1800 Supplement 07/28/23
cholecalciferol (vitamin D3) 50 mcg (2,000 unit) tablet (Vitamin D3) 100 mcg PO Q48H@1800 Supplement 07/28/23
levothyroxine 75 mcg tablet 75 mcg PO MOTUWETHFRSA@0600 Thyroid 07/28/23
timolol maleate 0.5 % eye drops 1 drp BOTH EYES BID Eye Condition 07/28/23
carbidopa ER 25 mg-levodopa 100 mg tablet,extended release 3 tab PO BID@1100,1630 09/21/23
carbidopa ER 25 mg-levodopa 100 mg tablet,extended release 4 tab PO BID@0600,2200 parkinson's disease 09/21/23
docusate sodium 100 mg capsule 100 mg PO DAILY PRN constipation 09/21/23
docusate sodium 100 mg capsule (Colace) 100 mg PO DAILY 09/21/23
lorazepam 0.5 mg tablet 0.5 mg PO DAILY PRN anxiety 09/21/23
lorazepam 0.5 mg tablet 0.5 mg PO DAILY@212909/21/23
mineral oil 1 tbsp PO Q48H@21309/21/23
mineral oil 2 tbsp PO Q48H@212909/21/23
pramipexole 0.25 mg tablet 0.25 mg PO TID@0600,1400,2200 09/21/23
sertraline 50 mg tablet 50 mg PO DAILY@1100 09/21/23
Review of Systems
-
History Source: Patient
A 12 point ROS was completed and negative except as noted: Yes
Constitutional: Reports No Symptoms
EENT: Reports No Symptoms
Respiratory: Reports No Symptoms
Cardiac: Reports See HPI
Abdomen/GI: Reports No Symptoms
: Reports No Symptoms
Musculoskeletal: Reports No Symptoms
Skin: Reports No Symptoms
Neurological: Reports No Symptoms
Endocrine: Reports No Symptoms
Hematologic/Lymphatic: Reports No Symptoms
Psych: Reports No Symptoms
Physical Exam
Vital Signs
Vital Signs
Temp Pulse Resp BP Pulse Ox
98.6 F 58 18 168/69 99
09/21/23 16:22 09/21/23 17:15 09/21/23 17:15 09/21/23 17:00 09/21/23 16:45
Physical Exam
General: Well Developed, Well Nourished and No Apparent Distress
HEENT: NormoCephalic, Moist mucous membranes and Atraumatic
Respiratory: Clear
Cardiac: S1/S2 and Regular Rhythm; No Murmur or Rub
GI: Soft, Non Tender, Non Distended and Normal Bowel Sounds; No Organomegaly
Rectal: Deferred by Provider
Musculoskeletal: No Clubbing, No Cyanosis and No Edema
Skin: No Rash
Neuro: Nonfocal/grossly intact
Laboratory Results
-
09/21/23 12:52
09/21/23 12:52
Laboratory Results
Total Bilirubin 1.0 mg/dl (0.2-1.3) 09/21/23 12:52
AST 28 U/L (14-36) 09/21/23 12:52
ALT < 10 U/L (0-35) 09/21/23 12:52
Alkaline Phosphatase 79 U/L (38-126) 09/21/23 12:52
Troponin I < 0.012 ng/ml 09/21/23 13:35
Data Reviewed
-
Lab Data: Labs Reviewed by me
Old Records: Reviewed
Impression/Plan
-
IMPRESSION:
PLAN:
# Episodic symptomatic sinus bradycardia possibly secondary to timolol eyedrops versus vagal episode
-EKG shows sinus bradycardia with heart rate in 40s, LVH
-Currently in normal sinus
-Check orthostatic vital signs
-Telemetry monitoring
-Hold timolol eyedrops
-Continue prophylactic aspirin, statin
-TSH normal range
-Cardiology consulted
History of Parkinson's
-Continue carbidopa-levodopa
-Continue pramipexole
Breast cancer
Hypothyroidism
-Continue levothyroxine
Fuchs disease
-Hold timolol eyedrops
-Continue Lotemax eyedrops
Anxiety/depression
-Continue lorazepam, sertraline
DNR/DNI
DVT prophylaxis�heparin
Regular diet
--- NOTE | 2023-09-21 18:08 | EDRN ---
this RN called the receiving unit and notified them that paper report was going to be tubed up
--- NOTE | 2023-09-21 19:20 | PTCARENOTE ---
Received patient from ED via stretcher. AAOx3. Assessed and oriented to room. security monitor reading Sinus Tach. at bedside. Call fong in close reach.
[2023-09-21] MEDS: LIPITOR 80 MG PO (19:50)
[2023-09-21] MEDS: VITAMIN D3 (cholecalciferol) 50 MCG PO (19:50)
[2023-09-21] MEDS: ASPIR LOW (ENTERIC COATED) 81 MG PO (19:50)
[2023-09-21] MEDS: HEPARIN 5000 UNITS SC (19:51)
[2023-09-21] MEDS: SINEMET CR 25-100 (EXTENDED RELEASE) 4 TABLET PO (21:46)
[2023-09-21] MEDS: MIRAPEX 0.25 MG PO (21:47)
[2023-09-22] VITALS (9 sets, daily range): BP systolic 79–155; BP diastolic 45–68; PULSE 58–79
[2023-09-22] MEDS: MIRAPEX 0.25 MG PO ×3 (05:19→21:53)
[2023-09-22] MEDS: SYNTHROID 75 MCG PO (05:19)
[2023-09-22] MEDS: SINEMET CR 25-100 (EXTENDED RELEASE) 4 TABLET PO ×2 (05:20→21:51)
--- NOTE | 2023-09-22 07:44 | CON.CAR ---
Addendum entered and electronically signed by Josesito Yoder MD 09/22/23 09:56:
Patient seen and examined. In collaboration with DIRECTOR OF FIRST IMPRESSIONS; agree with below.
-73-year-old with advanced Parkinson disease admitted with near-syncope; Cardiology consulted for possible symptomatic bradycardia.
-The patient's systolic blood pressure at home was in the 80s, and her heart rate was in the upper 40s.
-The patient had has had no significant bradycardia on telemetry with heart rates between 50 and 80 bpm.
-Echocardiogram today revealed overall normal cardiac function and no significant valvulopathy.
-This does not appear to be symptomatic bradycardia, symptoms were most likely secondary to low blood pressure; no pacemaker indicated at this time.
-Recommend supportive care/volume repletion.
-No further cardiac recommendations at this time; Cardiology will remain available on an as-needed basis.
Original Note:
Consultation
Consultation Request
Date/Time Consultation Requested: 09/21/23 23:30
Date/Time Consultation Performed: 09/22/23 07:45
Requesting Provider: Dr. Ochoa
Performing Provider: ANTONIO Townsend for Dr. Yoder
Reason for Consultation: Sympatomatic bradycardia
Medical History
-
Chief Complaint: Lightheadedness
History of Present Illness:
Kristyn Ríos is a 73 year old female with Parkinson's disease, hypothyroidism, and HLD presented with a chief complaint of lightheadedness. She was ambulating to the bathroom when she had weakness and lightheadedness. Her assisted her to
a chair. He checked her blood pressure. Systolic blood pressure in the 80s and heart rate in the 50s. The patient then used the bathroom and returned. Her blood pressure was still low and heart rate was in the upper 40s. She presented to the
emergency department for evaluation. Initial EKG with sinus bradycardia. Heart rate on telemetry between 50 and 80 bpm. No heart block. She is not having any chest pain. She is not having any shortness of breath.
Past Medical History
Past Medical History: Hypercholesterolemia, Hypothyroidism, Psychiatric (Anxiety) and Other (Parkinson's, dementia)
Past Surgical History: Gynecological
Social History
Tobacco: Former Smoker
Personal:
Living: With Family
Employment: Retired
Family History
Family History: Reviewed & Not Pertinent
Allergies / Home Medications
Allergy/AdvReac Type Severity Reaction Status Date / Time
No Known Allergies Allergy Verified 09/21/23 12:41
Medication Instructions Recorded Confirmed Type
loteprednol etabonate 0.5 % eye 1 drp BOTH EYES BID Eye Condition 09/19/09 09/21/23 History
gel drops (Lotemax)
aspirin 81 mg tablet,delayed 81 mg PO QPM Blood Clot 07/28/23 09/21/23 History
release Prevention/Tx
atorvastatin 80 mg tablet 80 mg PO QPM High Cholesterol 07/28/23 09/21/23 History
cholecalciferol (vitamin D3) 50 50 mcg PO Q48H@1800 Supplement 07/28/23 09/21/23 History
mcg (2,000 unit) tablet (Vitamin
D3)
cholecalciferol (vitamin D3) 50 100 mcg PO Q48H@1800 Supplement 07/28/23 09/21/23 History
mcg (2,000 unit) tablet (Vitamin
D3)
levothyroxine 75 mcg tablet 75 mcg PO MOTUWETHFRSA@0600 Thyroid 07/28/23 09/21/23 History
timolol maleate 0.5 % eye drops 1 drp BOTH EYES BID Eye Condition 07/28/23 09/21/23 History
carbidopa ER 25 mg-levodopa 100 mg 3 tab PO BID@1100,1630 09/21/23 09/21/23 History
tablet,extended release
carbidopa ER 25 mg-levodopa 100 mg 4 tab PO BID@0600,2200 parkinson's 09/21/23 09/21/23 History
tablet,extended release disease
docusate sodium 100 mg capsule 100 mg PO DAILY PRN constipation 09/21/23 09/21/23 History
docusate sodium 100 mg capsule 100 mg PO DAILY 09/21/23 09/21/23 History
(Colace)
lorazepam 0.5 mg tablet 0.5 mg PO DAILY PRN anxiety 09/21/23 09/21/23 History
lorazepam 0.5 mg tablet 0.5 mg PO DAILY@2130 09/21/23 09/21/23 History
mineral oil 1 tbsp PO Q48H@212909/21/23 09/21/23 History
mineral oil 2 tbsp PO Q48H@212909/21/23 09/21/23 History
pramipexole 0.25 mg tablet 0.25 mg PO TID@0600,1400,2200 09/21/23 09/21/23 History
sertraline 50 mg tablet 50 mg PO DAILY@1100 09/21/23 09/21/23 History
Review of Systems
-
History Source: Patient
All other systems: Negative unless noted
Cardiac: No Symptoms
Abdomen/GI: No Symptoms
: No Symptoms
Physical Exam
Vital Signs
Temp Pulse Resp BP Pulse Ox
97.6 F 63 17 126/57 98
09/22/23 03:47 09/22/23 03:47 09/22/23 03:47 09/22/23 03:47 09/22/23 03:47
Lab Results
Troponin I < 0.012 ng/ml 09/21/23 13:35
Physical Exam
General: Well Developed, Well Nourished, No Apparent Distress and Comfortable
HEENT: Normocephalic, Anicteric and Moist Mucous Membranes
Respiratory: Clear and Non Labored Respirations
Cardiac: S1/S2, Regular Rhythm and Murmur (II/ [systolic])
Breast: Deferred by me
GI: Soft, Non Tender, Non Distended and Normal Bowel Sounds
Rectal: Deferred by Provider
Genito-urinary: No Costovertebral Tender
Musculoskeletal: No Clubbing, No Cyanosis and No Edema
Skin: Warm and Dry
Neuro: AO x 3
Hematologic/Lymphatic: No Lymphadenopathy
Psych: Calm
Impression / Plan
-
Bradycardia
-No heart block
-No HR < 50 bpm on telemetry
-Echocardiogram
Hyponatremia, morning BMP pending
Parkinson's disease, on Sinemet, sees Palliative Care in the outpatient setting
Fuchs' corneal dystrophy S/P corneal transplant
Hypothyroidism, on levothyroxine, TSH 0.68
Data Reviewed
-
EKG: Report Reviewed by me (Sinus bradycardia, LVH, rate 46)
Labs: Labs Reviewed by me
Old Records: Reviewed
[2023-09-22 08:24] LABS: % Basophils 0.5 % (0-2); % Eosinophils 1.1 % (0-6); % Immature Granulocytes 0.2 % (0-0.5); % Lymphocytes 25.8 % (20.5-51.1); % Monocytes 8.2 % (1.7-9.3); % Neutrophils 64.2 % (42.2-75.2); Absolute Eosinophils 0.1 10^3/uL (0-0.7); Absolute Lymphocytes 1.1 10^3/uL (1.2-3.4); Absolute Monocytes 0.4 10^3/uL (0.1-0.6); Absolute Neutrophils 2.8 10^3/uL (1.4-6.5); Hematocrit 33.2 % (37.0-47.0); Hemoglobin 10.8 g/dL (12.0-16.0); Mean Corp Hgb Conc. 32.5 g/dL (33.0-37.0); Mean Corpuscular Hgb 28.6 pg (27.0-31.0); Mean Corpuscular Volume 88.1 fL (81.0-99.0); Mean Platelet Volume 10.1 fL (7.4-10.4); Nucleated Red Blood Cells % 0 %; Platelet Count 203 10^3/uL (130-400); Red Blood Cell Count 3.77 10^6/uL (4.20-5.40); Red Cell Dist. Width 13.3 % (11.5-14.5); White Blood Cell Count 4.4 10^3/uL (4.8-10.8)
[2023-09-22 08:58] LABS: ALT (SGPT) < 10 U/L (0-35); AST (SGOT) 24 U/L (14-36); Albumin 3.7 g/dl (3.5-5.0); Alkaline Phosphatase 77 U/L (38-126); Blood Urea Nitrogen 9 mg/dl (7-17); Calcium 9.2 mg/dl (8.4-10.2); Carbon Dioxide 29 mmol/L (22-30); Chloride 101 mmol/L (98-107); Estimated Creatinine Clearance 71 ml/min; Glucose 79 mg/dl (70-99); Potassium 4.4 mmol/L (3.5-5.1); Sodium 132 mmol/L (135-145); Total Protein 6.1 g/dl (6.3-8.2); eGFR > 60.00
[2023-09-22] MEDS: HEPARIN 5000 UNITS SC ×2 (09:43→19:41)
[2023-09-22] MEDS: COLACE 100 MG PO (09:43)
[2023-09-22] MEDS: ZOLOFT 50 MG PO (10:56)
[2023-09-22] MEDS: SINEMET CR 25-100 (EXTENDED RELEASE) 3 TABLET PO ×2 (10:56→16:30)
--- NOTE | 2023-09-22 11:34 | W.PN.HOSP.TC ---
Today's Communication/Plan
-
orthos bid
stocking/binder
monitor HR
PT/OT
Assessment / Plan
Assessment / Plan
#Hypotension likely 2/2 orthostatics hypotension vs. autonomic dysfunction in setting of PD
#Bradycardia
-EKG shows sinus bradycardia with heart rate in 40s, LVH
-Currently in normal sinus
-Check orthostatic vital signs
-Telemetry monitoring
-Hold timolol eyedrops
-Continue prophylactic aspirin, statin
-TSH normal range
-added Compression stocking and abdomen binder.
-ECHO wtih Left ventricular ejection fraction is 60-65%, by visual assessment. Normal regional wall motion. Normal right ventricular size and function. Aortic sclerosis without stenosis. Mild aortic regurgitation.
-Cardiology consulted
History of Parkinson's
-Continue carbidopa-levodopa
-Continue pramipexole
-sees Dr. Ashvin Mcnulty as outpatient.
Breast cancer
Hypothyroidism
-Continue levothyroxine
Fuchs disease
-Hold timolol eyedrops
-Continue Lotemax eyedrops
Anxiety/depression
-Continue lorazepam, sertraline
DNR/DNI
DVT prophylaxis�heparin
d/w with spouse at bedside in details.
Anticipated Discharge: Within 24 hours
Subjective/Interval History
-
Date of Service: September 22, 2023
per pt drink adequate amount of water intake
pt feels woozy upon standing at times-improved
with multiple question for HR-answered all. Wanted to discuss further with cardiology
Objective Data
-
Labs:
Laboratory Results
09/22/23
07:38
WBC 4.4 L
Hgb 10.8 L
Hct 33.2 L
Plt Count 203
Sodium 132 L
Potassium 4.4
Chloride 101
Carbon Dioxide 29
BUN 9
Creatinine 0.4 L
Glucose 79
Calcium 9.2
Total Bilirubin 1.0
AST 24
ALT < 10
Alkaline Phosphatase 77
Vital Signs:
Vital Signs
Temp Pulse Resp BP Pulse Ox
97.3 F 59 18 107/52 99
09/22/23 07:55 09/22/23 07:55 09/22/23 07:55 09/22/23 07:55 09/22/23 07:55
I&O
09/21/23 09/22/23 09/23/23
06:59 06:59 06:59
Intake Total 0 / 0
Balance 0 / 0
Physical Exam
-
General: No Apparent Distress
HEENT: Normocephalic and Atraumatic
Respiratory: Negative Wheezes or Rales
Cardiac: Regular Rhythm and S1/S2
GI: Soft, Nondistended and Normal Bowel Sounds
Genito-urinary: No Costovertebral Tender
Musculoskeletal: No Edema
Neuro: Awake and AO x 3
Psych: Calm
Data Reviewed
-
Total Time Spent with Patient (in minutes): 55
[2023-09-22] MEDS: ATIVAN 0.5 MG PO ×2 (12:41→21:52)
--- NOTE | 2023-09-22 14:08 | CON.NEURO ---
Neuro Assessment/Plan
Assessment
IMPRESSIONS/RECOMMENDATIONS:
Abrupt change in dizziness and prior history of Parkinson disease, orthostatic hypotension (OH), Fuch's disease (leading to ptosis bilaterally)
Current symptoms are likely related to OH
Plan
due to intolerance of abdominal binder and compression stockings, start Fludrocortisone 0.1 mg daily, hold SBP > 150
continue Carbidopa/Levodopa dosing and Pramipexole dosing at current levels
follow serial orthostatics
rehab evaluations
eventual start to Rivastigmine due to cognitive issues
Will follow peripherally
Consultation
Order
Date of Consultation: 09/22/23
Requesting Provider: Hospitalists
Reason for Consult: Orthostasis
Subjective/Objective
Subjective Data
Date of Service: September 22, 2023
DATE/TIME OF CONSULTATION: 07/29/23
Reason for Consultation: Weakness
This is a 73-year-old right-handed female who has presented to the hospital on 07/28/23 with report of weakness, fatigue, and urinary urgency. Patient was previously evaluated in the ER on 07/26/23 with similar symptoms, she was thought to have a UTI
and was discharged home with oral antibiotics. Urine culture came back negative. Patient's symptoms continued, prompting her to bring her back to the ER for evaluation. Patient is followed by Neurology Dr. Recio as an outpatient for
Parkinson disease and cognitive impairment. She is on two 25-100 carbidopa/levodopa tablets TID and three 25-100 tablets at HS. Pramipexole 0.125mg TID was added recently for gait dysfunction. She is not on any memory stabilizing medications.
Currently, she endorses weakness, bilateral eye drooping due to Fuch's, urinary frequency, and anosmia. She also reports intermittent difficulty swallowing pills. She denies any headache, dizziness, vision changes, hallucinations, speech difficulty,
numbness, chest pain, palpitations, and shortness of breath. She reports 'freezing' episodes in the past but they did not feel similar to how she currently feels.
IMPRESSIONS/RECOMMENDATIONS:
Abrupt onset of worsening of underlying encephalopathy which is most likely secondary to combination of advanced Parkinson's disease and orthostatic hypotension
Check orthostatic blood pressures
Increase routine carbidopa/levodopa dosing from 2 tabs 3 times a day and 3 tabs at bedtime to dosing of 3 tabs 4 times a day
Patient likely will require the use of memory stabilizing medication, rivastigmine, as outpatient
Occupational Therapy to improve tremor
Physical therapy to improve gait
Speech therapy to ensure absence of dysphagia
~~~~
Since that hospitalization, the patient returned to her outpatient neurologist. She was unable to tolerate the abdominal binder or compression stockings.
Patient was seen by usual neurologist recently who decreased Pramipexole leading to worsening tremors then increased back to 2 (0.125 mg tabs) last changed 08/2023.
Carbidopa/Levodopa tablets 4-3-3-4 increased in 07/2023.
Patient presented to the emergency department yesterday leading to admission for evaluation of lightheadedness. Patient reports that symptoms have been intermittent for the past week. The patient noticed the symptoms with body position change and
was found to have systolic blood pressure that was significantly low as well as bradycardia.
Patient with worsening of gait recently leading to this hospitalization.
Objective Data
Vital Signs
Temp Pulse Resp BP Pulse Ox
36.5 C 56 20 111/57 100
09/22/23 11:55 09/22/23 11:55 09/22/23 11:55 09/22/23 11:55 09/22/23 11:55
Lab Results
09/22/23 07:38
09/22/23 07:38
Sodium 132 mmol/L (135-145) L 09/22/23 07:38
Potassium 4.4 mmol/L (3.5-5.1) 09/22/23 07:38
BUN 9 mg/dl (7-17) 03/26/24 07:38
Glucose 79 mg/dl (70-99) 09/22/23 07:38
Calcium 9.2 mg/dl (8.4-10.2) 09/22/23 07:38
Phosphorus 3.6 mg/dl (2.5-4.5) 09/21/23 14:18
Patient Allergies
No Known Allergies Allergy (Verified 09/21/23 12:41)
Review of Systems
-
History Source: Patient
All other systems: Reviewed and negative
EENT: Blurry Vision; Negative Decreased Vision or Swallowing Difficulty
Respiratory: Negative Trouble Breathing
Cardiac: Negative Chest Pain
Abdomen/GI: Negative Incontinence of Stool
Genitourinary: Negative Incontinence
Musculoskeletal: Negative Back Pain or Neck Pain
Neuro: Dizzy; Negative Headache
Physical Exam
-
General: No Apparent Distress and Appears Stated Age
Eyes: OU Absent Papilledema, Round OU and Ballard Conjunctivae; Negative No Ptosis (Touches bilateral irises greater droop on the right than on the left)
HEENT: Anicteric and Moist Mucous Membranes
Neck: Full Range of Motion
Respiratory: No Dyspnea
Cardiac: No JVD
GI: Non-distended
Skin: Unremarkable
Extremities: No Clubbing, No Cyanosis and No Edema
Psych: Intact Judgement/Insight
Extended Neurological Exam
Mood & Affect: Mood Unremarkable and Affect Unremarkable
Attention Span & Concentration: Awake, Alert, Interactive and No Difficulty with 2 Step Request
Memory: Unremarkable
Tremor: Hand Tremor Absent and Head Tremor Absent
Speech: Quality Unremarkable and Quantity Unremarkable
Cranial Nerve II: Left Eye: Pupillary Reactivity Unremarkable, Pupillary Size Unremarkable and Visual Crocker Intact
Cranial Nerve II: Right Eye: Pupillary Reactivity Unremarkable, Pupillary Size Unremarkable and Visual Crocker Intact
Cranial Nerves III, IV, : Extraocular Movement: Extraocular Movement Full in all Directions
Cranial Nerve VII: Facial Symmetry: Normal Facial Symmetry
Cranial Nerve VIII: Hearing: Unremarkable Hearing to Normal Conversational Volume
Cranial Nerves IX, X: Palate Movement: Palate Elevation Symmetric
Cranial Nerve XI: Shoulder Shrug: Unremarkable
Cranial Nerve XII: Tongue Protusion: Midline
Muscle Strength, Overall: Full Throughout
Muscle Bulk & Tone: Bulk Unremarkable and Tone Unremarkable
Pronator Drift: No Drift in Upper Extremities and No Drift in Lower Extremities
Deep Tendon Reflexes: Trace Throughout
Cold Sensation: Unremarkable
Touch Sensation: Unremarkable
Coordination: [id number] Testing Unremarkable
Babinski Sign: Absent Bilaterally
Data Reviewed
-
Orthostatic Testing: Ordered and Report Reviewed
Labs: Report Reviewed
Reviewed with: Physician, Patient and Family
Old Records: Summarized
Medications
-
Active Medications
Generic Name Dose Route Start Last Admin
Trade Name Freq PRN Reason Stop Dose Admin
Acetaminophen 650 mg 09/22/23 08:18
Acetaminophen 325 Mg Tablet PO 10/20/23 08:17
Q6HPRN PRN
mild pain/ fever>100.5F
Aspirin 81 mg 09/21/23 18:26 09/21/23 19:50
Aspirin 81 Mg (Enteric Coated) Tablet PO 10/19/23 18:25 81 mg
QPM CAROLYN Administration
Atorvastatin Calcium 80 mg 09/21/23 18:26 09/21/23 19:50
Atorvastatin (Lipitor) 80 Mg Tablet PO 10/19/23 18:25 80 mg
QPM CAROLYN Administration
Carbidopa/Levodopa 4 tablet 09/21/23 22:00 09/22/23 05:20
Carbidopa (25 Mg) Levodopa (100 Mg) Extended Release Tablet PO 10/19/23 21:59 4 tablet
BID@0600,2200 CAROLYN Administration
Carbidopa/Levodopa 3 tablet 09/22/23 11:00 09/22/23 10:56
Carbidopa (25 Mg) Levodopa (100 Mg) Extended Release Tablet PO 10/20/23 10:59 3 tablet
BID@1100,1630 CAROLYN Administration
Cholecalciferol 50 mcg 09/21/23 18:00 09/21/23 19:50
Cholecalciferol (Vitamin D3) 50 Mcg Tablet (2,000 Units) PO 10/19/23 17:59 50 mcg
Q48H CAROLYN Administration
Cholecalciferol 100 mcg 09/22/23 18:00
Cholecalciferol (Vitamin D3) 50 Mcg Tablet (2,000 Units) PO 10/20/23 17:59
Q48H CAROLYN
Docusate Sodium 100 mg 09/21/23 18:26
Docusate Sodium 100 Mg Capsule PO 10/19/23 18:25
DAILYPRN PRN
constipation
Docusate Sodium 100 mg 09/22/23 08:00 09/22/23 09:43
Docusate Sodium 100 Mg Capsule PO 10/20/23 07:59 100 mg
DAILY CAROLYN Administration
Heparin Sodium 5,000 units 09/21/23 20:00 09/22/23 09:43
Heparin 5,000 Units/Ml 1 Ml Vial SC 10/19/23 19:59 5,000 units
Q12 CAROLYN Administration
Levothyroxine Sodium 75 mcg 09/22/23 06:00 09/22/23 05:19
Levothyroxine 75 Mcg Tablet PO 10/20/23 05:59 75 mcg
MOTUWETHFRSA@0600 CAROLYN Administration
Lorazepam 0.5 mg 09/21/23 18:26 09/22/23 12:41
Lorazepam 0.5 Mg Tablet PO 10/19/23 18:25 0.5 mg
DAILYPRN PRN Administration
anxiety
Lorazepam 0.5 mg 09/21/23 21:30 09/21/23 23:45
Lorazepam 0.5 Mg Tablet PO 10/19/23 21:29 0.5 mg
DAILY@2130 CAROLYN Administration
Loteprednol 0 drop 09/21/23 20:00
Etabonate [Lotemax] BOTH EYES 10/19/23 19:59
0.5 % Drops,Gel One BID CAROLYN
Drop Both Eyes Bid
Pramipexole Dihydrochloride 0.25 mg 09/21/23 22:00 09/22/23 13:46
Pramipexole 0.25 Mg Tablet PO 10/19/23 21:59 0.25 mg
TID@0600,1400,2200 [facility] Administration
Sertraline HCl 50 mg 09/22/23 11:00 09/22/23 10:56
Sertraline 50 Mg Tablet PO 10/20/23 10:59 50 mg
DAILY@1100 [facility] Administration
Sodium Chloride 0 flush 09/21/23 19:00
Sodium Chloride 0.9% (Flush) Syringe IV 10/19/23 18:59
PER PROTOCOL [facility]
Home Medications
Medication Instructions Recorded
loteprednol etabonate 0.5 % eye 1 drp BOTH EYES BID Eye Condition 09/19/09
gel drops (Lotemax)
aspirin 81 mg tablet,delayed 81 mg PO QPM Blood Clot 07/28/23
release Prevention/Tx
atorvastatin 80 mg tablet 80 mg PO QPM High Cholesterol 07/28/23
cholecalciferol (vitamin D3) 50 50 mcg PO Q48H@1800 Supplement 07/28/23
mcg (2,000 unit) tablet (Vitamin
D3)
cholecalciferol (vitamin D3) 50 100 mcg PO Q48H@1800 Supplement 07/28/23
mcg (2,000 unit) tablet (Vitamin
D3)
levothyroxine 75 mcg tablet 75 mcg PO MOTUWETHFRSA@0600 Thyroid 07/28/23
timolol maleate 0.5 % eye drops 1 drp BOTH EYES BID Eye Condition 07/28/23
carbidopa ER 25 mg-levodopa 100 mg 3 tab PO BID@1100,1630 [facility] 09/21/23
tablet,extended release
carbidopa ER 25 mg-levodopa 100 mg 4 tab PO BID@0600,2200 parkinson's 09/21/23
tablet,extended release disease
docusate sodium 100 mg capsule 100 mg PO DAILY PRN constipation 09/21/23
docusate sodium 100 mg capsule 100 mg PO DAILY Constipation 09/21/23
(Colace)
lorazepam 0.5 mg tablet 0.5 mg PO DAILY PRN anxiety 09/21/23
lorazepam 0.5 mg tablet 0.5 mg PO DAILY@212909/21/23
mineral oil 1 tbsp PO Q48H@212909/21/23
mineral oil 2 tbsp PO Q48H@212909/21/23
pramipexole 0.25 mg tablet 0.25 mg PO TID@0600,1400,2200 09/21/23
Neurological Condition
sertraline 50 mg tablet 50 mg PO DAILY@1100 Mental 09/21/23
Health/Anxiety
Past History
Past History
ED Past Medical History: Cancer and Other (parkinsons)
ED Past Surgical History: Other
Social History
Tobacco: Non-smoker
Alcohol: None
Drug: None
Personal:
Living: with family
Employment: Retired
[2023-09-22] MEDS: FLORINEF PO (16:26)
[2023-09-22] MEDS: LIPITOR 80 MG PO (17:41)
[2023-09-22] MEDS: ASPIR LOW (ENTERIC COATED) 81 MG PO (17:41)
[2023-09-22] MEDS: VITAMIN D3 (cholecalciferol) 100 MCG PO (17:42)
[2023-09-23] VITALS (8 sets, daily range): BP systolic 72–147; BP diastolic 44–68; PULSE 59–97; O2SAT 96
--- NOTE | 2023-09-23 03:34 | DOWNTIME ---
There was a [employer] Downtime on 09/23/2023 from 0100 to 09/23/2023 at 0322. Downtime documentation of patient's care, including medication administrations, has been reconciled in the electronic record per guidelines. Refer to the
patient's paper chart under the miscellaneous tab to see printed paper medication records and downtime forms.
[2023-09-23] MEDS: SYNTHROID 75 MCG PO (05:57)
[2023-09-23] MEDS: MIRAPEX 0.25 MG PO ×3 (05:57→21:37)
[2023-09-23] MEDS: SINEMET CR 25-100 (EXTENDED RELEASE) 4 TABLET PO ×2 (05:58→21:37)
[2023-09-23] MEDS: FLORINEF 0.100000000000000006 MG PO (08:27)
[2023-09-23] MEDS: HEPARIN 5000 UNITS SC ×2 (08:27→20:46)
[2023-09-23] MEDS: COLACE 100 MG PO (08:27)
--- NOTE | 2023-09-23 10:23 | CM ---
(late entry for 09/22/23)
CM following re: d/c planning
Chart reviewed
CM met with the patient and her spouse at bedside; IA completed
Pt reports they reside in a [place] with no KATT
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
Pt has VN hx through [facility], has no previous SNF hx, and has the following DME for use as needed: r/w, spc, & w/c
Pt confirmed prescription coverage and rx's are filled at [facility]
Pt PCP-Israel Hairston
CM watching for needs however no needs anticipated
PLAN; d/c home no needs anticipated
--- NOTE | 2023-09-23 10:57 | W.PN.HOSP.TC ---
Today's Communication/Plan
-
cards further input
pt/ot
florinef
Assessment / Plan
Assessment / Plan
#Hypotension likely 2/2 orthostatics hypotension 2/2 neurogenic autonomic dysfunction in setting of PD
#Bradycardia on admission
-Currently in normal sinus. No heart block noted on tele.
-orthostatics positive. Started on florinef.
-Telemetry monitoring
-Hold timolol eyedrops-d/w with pharmacy. Timolol known to cause bradycardia. ?etiology of low HR. Held since admission.
-Continue prophylactic aspirin, statin
-TSH normal range
-added Compression stocking and abdomen binder.-Pt refusing it.
-ECHO wtih Left ventricular ejection fraction is 60-65%, by visual assessment. Normal regional wall motion. Normal right ventricular size and function. Aortic sclerosis without stenosis. Mild aortic regurgitation.
-[place] Texted Dr. Reese-as pt/spouse with multiple questions in regarding bradycardia. does not too keen on heart monitor.
History of Parkinson's
-Continue carbidopa-levodopa
-Continue pramipexole
-sees Dr. Ashvin Mcnulty as outpatient.
-Appreciate neurology recs/assistance.
Breast cancer
Hypothyroidism
-Continue levothyroxine
Fuchs disease
-Hold timolol eyedrops
-Continue Lotemax eyedrops
Anxiety/depression
-Continue lorazepam, sertraline
DNR/DNI
DVT prophylaxis�heparin
d/w with spouse at bedside in details on daily basis
PT/OT .
Anticipated Discharge: Today
Subjective/Interval History
-
Date of Service: September 23, 2023
feeling better
HR in 60s on tele
Objective Data
-
Vital Signs:
Vital Signs
Temp Pulse Resp BP Pulse Ox
98.2 F 61 18 129/51 99
09/23/23 07:15 09/23/23 03:32 09/23/23 03:32 09/23/23 03:32 09/23/23 08:00
I&O
09/22/23 09/23/23 09/24/23
06:59 06:59 06:59
Intake Total 0 / 0 800 / 800
Output Total 350 / 350
Balance 0 / 0 450 / 450
Physical Exam
-
General: No Apparent Distress
HEENT: Normocephalic and Atraumatic
Cardiac: S1/S2 (on tele)
GI: Nondistended
Neuro: Awake, Alert, Oriented, AO x 3 and No Motor Deficits
Psych: Calm
[2023-09-23] MEDS: ZOLOFT 50 MG PO (11:06)
[2023-09-23] MEDS: SINEMET CR 25-100 (EXTENDED RELEASE) 3 TABLET PO ×2 (11:06→17:18)
--- NOTE | 2023-09-23 11:12 | PN.CDI ---
CDI
- -
CDI:
Physician Documentation Request
Admit Date: 09/21/23 18:05
Dear Doctor Patricia,
Patient was admitted with hypotension.
09/21 PN, 'History of Parkinson's.....Hypotension likely 2/2 orthostatics hypotension vs. autonomic dysfunction in setting of PD....added Compression stocking and abdomen binder.'
Please provide in your note the likely etiology of orthostatic hypotension:
Neurogenic orthostatic hypotension due to Parkinson's disease
Shy-Drager syndrome
Orthostatic hypotension only
Other
Use of terms such as suspected, likely, concern for, or probable (associated with a specific diagnosis that is being evaluated, monitored, or treated as if it exists) are acceptable and can be coded in the inpatient setting, when documented at the
time of discharge.
Thank you,
Alexandria KIMN,RN,CCDS
CDI Specialist
Available via tiger text
Please use your independent medical judgment in providing your response.
--- NOTE | 2023-09-23 14:15 | W.PN.CD ---
Today's Communication / Plan
-
continue florinef
trend tele
Impression / Plan
-
Bradycardia, sinus
-echo 09/21: EF 60-65%, mild AR, nl RV
-tele: HR 50s-70s mostly, occasional 40s, no advanced heart block
-I do not see an indication for PPM at this time
-does not appear to be symptomatic bradycardia
-symptoms likely due to orthostatic hypotension in setting of Parkinson's, autonomic dysfunction
-continue florinef (new this admission)
-monitor tele
-if no events on tele, will arrange for 2 week outpatient monitor when she is discharged
Parkinson's disease, on Sinemet, sees Palliative Care in the outpatient setting
Fuchs' corneal dystrophy S/P corneal transplant
Hypothyroidism, on levothyroxine
Physical Exam
Vital Signs/Labs
Vital Signs
Temp Pulse Resp BP Pulse Ox
97.6 F 61 18 129/51 99
09/23/23 11:37 09/23/23 03:32 09/23/23 03:32 09/23/23 03:32 09/23/23 08:00
09/22/23 09/23/23 09/24/23
06:59 06:59 06:59
Actual Weight 54.295 kg
09/22/23 07:38
09/22/23 07:38
Magnesium 1.7 mg/dl (1.6-2.3) 09/21/23 14:18
LAB Results
09/21/23
13:35
Troponin I < 0.012
Physical Exam
Constitutional: No acute distress
EENT: Moist mucous membranes
Cardiovascular: Rhythm & rate is regular, Pedal edema is absent, JVD pressure is normal and Systolic murmur absent
Respiratory: Respiratory effort normal and Lungs clear to auscul.
Neuro/Psych: AO x 3
Data Reviewed
-
Date of Service: September 23, 2023
EKG: Other (SR/SB, HR mostly 50s-70s)
Echo: Report Reviewed by me (per note)
Labs: Labs Reviewed by me
[2023-09-23] MEDS: VITAMIN D3 (cholecalciferol) 50 MCG PO (17:19)
[2023-09-23] MEDS: ASPIR LOW (ENTERIC COATED) 81 MG PO (17:19)
[2023-09-23] MEDS: LIPITOR 80 MG PO (17:19)
[2023-09-23] MEDS: ATIVAN 0.5 MG PO (21:37)
[2023-09-24] VITALS (8 sets, daily range): BP systolic 75–146; BP diastolic 46–64; PULSE 63–81; O2SAT 99
[2023-09-24] MEDS: SYNTHROID 75 MCG PO (05:17)
[2023-09-24] MEDS: SINEMET CR 25-100 (EXTENDED RELEASE) 4 TABLET PO ×2 (05:17→21:33)
[2023-09-24] MEDS: MIRAPEX 0.25 MG PO ×3 (05:17→21:32)
[2023-09-24] MEDS: COLACE 100 MG PO (09:05)
[2023-09-24] MEDS: FLORINEF 0.100000000000000006 MG PO ×2 (09:08→21:34)
[2023-09-24] MEDS: HEPARIN 5000 UNITS SC ×2 (09:08→21:34)
[2023-09-24] MEDS: NON-FORMULARY ITEM 1 DROP BOTH EYES ×2 (11:10→21:36)
[2023-09-24] MEDS: ZOLOFT 50 MG PO (11:11)
[2023-09-24] MEDS: SINEMET CR 25-100 (EXTENDED RELEASE) 3 TABLET PO ×2 (11:13→17:06)
--- NOTE | 2023-09-24 11:17 | W.PN.CD ---
Today's Communication / Plan
-
discussed with hospitalist: agree with plans for florinef titration
monitor tele
Impression / Plan
-
Bradycardia, sinus
-echo 09/21: EF 60-65%, mild AR, nl RV
-timolol eye drops have been stopped
-tele: HR 60s mostly, no heart block
-I do not see an indication for PPM at this time
-does not appear to be symptomatic bradycardia
-symptoms seem to be due to orthostatic hypotension in setting of Parkinson's, autonomic dysfunction
-continue florinef (new this admission)
-monitor tele
-if no events on tele, will arrange for 2 week outpatient monitor when she is discharged
Parkinson's disease, on Sinemet, sees Palliative Care in the outpatient setting
Fuchs' corneal dystrophy S/P corneal transplant
Hypothyroidism, on levothyroxine
Physical Exam
Vital Signs/Labs
Vital Signs
Temp Pulse Resp BP Pulse Ox
97.6 F 63 16 118/53 97
09/24/23 08:16 09/24/23 08:16 09/24/23 08:16 09/24/23 08:16 09/24/23 08:16
09/22/23 07:38
09/22/23 07:38
Magnesium 1.7 mg/dl (1.6-2.3) 09/21/23 14:18
LAB Results
09/21/23
13:35
Troponin I < 0.012
Physical Exam
Constitutional: No acute distress and Comfortable
EENT: Moist mucous membranes
Cardiovascular: Rhythm & rate is regular, Pedal edema is absent, JVD pressure is normal and Systolic murmur absent
Respiratory: Respiratory effort normal and Lungs clear to auscul.
GI: Soft and Distention absent
Neuro/Psych: AO x 3
Data Reviewed
-
Date of Service: September 24, 2023
EKG: Other (Tele: SR 60s)
Labs: Labs Reviewed by me
--- NOTE | 2023-09-24 11:33 | PN.CDI ---
CDI
- -
CDI:
Physician Documentation Request
Admit Date: 09/21/23 18:05
Dear Doctor Patricia,
Patient was admitted with hypotension.
Na levels documented below:
Patient received IV NSS.
Laboratory Tests
09/21/23 09/22/23
12:52 07:38
Sodium 130 L 132 L
Based on the above, please clarify in the progress notes, the appropriate diagnosis, if significant, that supports the above abnormalities and additional evaluation, monitoring and/or treatment rendered:
Hyponatremia
Insignificant abnormal lab findings
Other
Use of terms such as suspected, likely, concern for, or probable (associated with a specific diagnosis that is being evaluated, monitored, or treated as if it exists) are acceptable and can be coded in the inpatient setting, when documented at the
time of discharge.
Thank you,
Alexandria DAVIDSON,RN,CCDS
CDI Specialist
Available via [place] text
Please use your independent medical judgment in providing your response.
--- NOTE | 2023-09-24 12:24 | W.PN.HOSP.TC ---
Addendum entered and electronically signed by Harlan Gomez MD 09/24/23 12:37:
mild hyponatremia
Original Note:
Today's Communication/Plan
-
refusing Stocking/binder
increase florinef
cards recs
cm for dispo planning
Assessment / Plan
Assessment / Plan
#Hypotension likely 2/2 neurogenic orthostatic hypotension in setting of PD
#Bradycardia on admission
-Currently in normal sinus. No heart block noted on tele.
-orthostatics positive. Started on florinef and increase dose to 0.2mg. Will need to accept supine hypertension. Expect degree of drop in BP with standing due to PD/Autonomic dysfunction.
-Telemetry monitoring
-Hold timolol eyedrops-d/w with pharmacy. Timolol known to cause bradycardia. ?etiology of low HR. Held since admission.
-Continue prophylactic aspirin, statin
-TSH normal range
-added Compression stocking and abdomen binder.-Pt refusing it.
-ECHO wtih Left ventricular ejection fraction is 60-65%, by visual assessment. Normal regional wall motion. Normal right ventricular size and function. Aortic sclerosis without stenosis. Mild aortic regurgitation.
-plan for heart monitor if pt/family agrees.
History of Parkinson's
-Continue carbidopa-levodopa
-Continue pramipexole
-sees Dr. Ashvin Mcnulty as outpatient.
-Appreciate neurology recs/assistance.
-Spouse seems overwhelmed with PD dx and progression of disease process. States will switch to [place] neurology moving forward.
Breast cancer
Hypothyroidism
-Continue levothyroxine
Fuchs disease
-Hold timolol eyedrops
-Continue Lotemax eyedrops
Anxiety/depression
-Continue lorazepam, sertraline
DNR/DNI
DVT prophylaxis�heparin
d/w with spouse at bedside in details on daily basis
d/w with cardiology
PT/OT -SNF vs. Home PT. CM aware. start dispo planning
Anticipated Discharge: Within 24 hours
Subjective/Interval History
-
Date of Service: September 24, 2023
HR remains stable.
remains orthostatic
walking with walker
Objective Data
-
Vital Signs:
Vital Signs
Temp Pulse Resp BP Pulse Ox
98.3 F 63 18 134/61 100
09/24/23 11:28 09/24/23 11:28 09/24/23 11:28 09/24/23 11:28 09/24/23 11:28
I&O
09/23/23 09/24/23 09/25/23
06:59 06:59 06:59
Intake Total 800 / 800 360 / 360
Output Total 350 / 350
Balance 450 / 450 360 / 360
Physical Exam
-
General: No Apparent Distress
HEENT: Normocephalic and Atraumatic
Cardiac: S1/S2 (on tele)
GI: Nondistended
Musculoskeletal: No Edema and Normal Gait & Station
Neuro: Awake, Alert, Oriented, AO x 3 and No Motor Deficits
Psych: Calm
Data Reviewed
-
Total Time Spent with Patient (in minutes): 55
[2023-09-24] MEDS: ATIVAN 0.5 MG PO ×2 (13:12→21:32)
[2023-09-24] MEDS: VITAMIN D3 (cholecalciferol) 50 MCG PO (17:06)
[2023-09-24] MEDS: LIPITOR 80 MG PO (17:06)
[2023-09-24] MEDS: ASPIR LOW (ENTERIC COATED) 81 MG PO (17:06)
[2023-09-24] MEDS: VITAMIN D3 (cholecalciferol) 100 MCG PO (17:08)
[2023-09-25 03:16] VITALS: BP 105/43
[2023-09-25] MEDS: SINEMET CR 25-100 (EXTENDED RELEASE) 4 TABLET PO (05:10)
[2023-09-25] MEDS: MIRAPEX 0.25 MG PO (05:11)
[2023-09-25] MEDS: SYNTHROID 75 MCG PO (05:11)
[2023-09-25 07:38] VITALS: BP 112/55; BP 119/53; BP 72/40; PULSE 57; PULSE 65; PULSE 70
[2023-09-25] MEDS: FLORINEF 0.100000000000000006 MG PO (08:37)
[2023-09-25] MEDS: HEPARIN 5000 UNITS SC (08:40)
[2023-09-25] MEDS: COLACE 100 MG PO (08:40)
[2023-09-25] MEDS: NON-FORMULARY ITEM 1 DROP BOTH EYES (08:42)
[2023-09-25 08:45] VITALS: BP 130/63; BP 72/40; PULSE 70
[2023-09-25] MEDS: ALPHAGAN P 0.1% EYE DROPS 1 DROP OPHTH (10:22)
[2023-09-25] MEDS: ZOLOFT 50 MG PO (10:23)
[2023-09-25] MEDS: SINEMET CR 25-100 (EXTENDED RELEASE) 3 TABLET PO (10:23)
[2023-09-25 10:43] VITALS: BMI 20.5
--- NOTE | 2023-09-25 11:12 | W.PN.HOSP.TC ---
Today's Communication/Plan
-
Florinef
Outpatient follow-up
Home health
Assessment / Plan
Assessment / Plan
#Hypotension likely 2/2 neurogenic orthostatic hypotension in setting of PD
#Bradycardia on admission
-Currently in normal sinus. No heart block noted on tele.
-orthostatics positive. Started on florinef and increase dose to 0.1 mg twice daily dosing. Will need to accept supine hypertension. Expect degree of drop in BP with standing due to PD/Autonomic dysfunction.
-Telemetry monitoring
-Hold timolol eyedrops-d/w with pharmacy. Timolol known to cause bradycardia. ?etiology of low HR. Held since admission. Patient's spouse discussed with patient evp operations and recommended Alphagan
-Continue prophylactic aspirin, statin
-TSH normal range
-added Compression stocking and abdomen binder.-Pt refusing it. Counseled on trying once again. Patient continued to refuse it.
-ECHO wtih Left ventricular ejection fraction is 60-65%, by visual assessment. Normal regional wall motion. Normal right ventricular size and function. Aortic sclerosis without stenosis. Mild aortic regurgitation.
-plan for heart monitor if pt/family agrees.
History of Parkinson's
-Continue carbidopa-levodopa
-Continue pramipexole
-sees Dr. Ashvin Mcnulty as outpatient.
-Appreciate neurology recs/assistance.
-Spouse seems overwhelmed with PD dx and progression of disease process. States will switch to [place] neurology moving forward.
Breast cancer
Hypothyroidism
-Continue levothyroxine
Fuchs disease
-Hold timolol eyedrops
-Continue Lotemax eyedrops
Anxiety/depression
-Continue lorazepam, sertraline
DNR/DNI
DVT prophylaxis�heparin
d/w with spouse at bedside in details on daily basis
Discussed with daughter at bedside in detail today
PT/OT -Home health.
More than 30 minutes spent in discharge including
Final examination of the patient
Summarizing hospital stay
Instructions for continuing care to all relevant caregivers
Preparation of discharge records, prescriptions, and referral forms
Total time spent (in minutes): 45
Anticipated Discharge: Today
Subjective/Interval History
-
Date of Service: September 25, 2023
Patient worked with physical therapy and ambulated without any difficulty
Blood pressure improved after exertion/activity
Currently sitting in chair without any complaints
Objective Data
-
Vital Signs:
Vital Signs
Temp Pulse Resp BP Pulse Ox
97.7 F 57 18 112/55 96
09/25/23 07:38 09/25/23 07:38 09/25/23 07:38 09/25/23 07:38 09/25/23 10:39
I&O
09/24/23 09/25/23 09/26/23
06:59 06:59 06:59
Intake Total 360 / 360 960 / 960
Balance 360 / 360 960 / 960
Physical Exam
-
General: No Apparent Distress
HEENT: Normocephalic, Atraumatic and Moist Mucous Membranes
Cardiac: Regular Rhythm and S1/S2 (on tele-heart rate in 60s)
GI: Soft, Nontender, Nondistended and Normal Bowel Sounds
Musculoskeletal: No Edema and Normal Gait & Station
Neuro: Awake, Alert, Oriented, AO x 3 and No Motor Deficits
Psych: Calm
--- NOTE | 2023-09-25 11:18 | W.DCSUMMARY ---
Discharge Summary
Discharge Data
Date of Admission: 09/21/23
Date of Discharge: 09/25/23
-
Pending Results: No
Hospital Course
73 female past medical history of recently diagnosed Parkinson's, breast cancer, hypothyroidism, FUCHs disease. HLD, anxiety, depression who was presented with hypotension and bradycardia. Patient TSH was within normal limits. Cardiology was
consulted underwent echocardiogram. ECHO the [facility] Left ventricular ejection fraction is 60-65%, by visual assessment. Normal regional wall motion. Normal right ventricular size and function. Aortic sclerosis without stenosis. Mild aortic regurgitation.
Orthostatic positive and added Compression stocking and abdomen binder.-Pt refusing it. Counseled on trying once again. Patient continued to refuse it.Hold timolol eyedrops-d/w with pharmacy. Timolol known to cause bradycardia. ?etiology of low
HR. Held since admission. 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 Added on Florinef 2.1 mg daily which was increased to twice daily. Patient with significant improvement was able to ambulate with
physical therapy without any symptoms. Patient be discharged home with outpatient follow-up with cardiology and neurology.
Discharge Plan
-
Patient Disposition: Home with Home Care
Discharge Diagnosis/Procedures: Hypotension secondary to neurogenic autonomic dysfunction secondary to Parkinson disease
Sinus bradycardia
Condition: Fair
Diet: Regular
Activity: With assistance and As tolerated
Driving Restrictions: Not until seen by your Dr
Other Services: VN
Referrals:
Josesito Yoder MD [Active] - in two to three weeks
Jose D Kelsey MD [Active] - in one to two weeks
Israel Hairston MD [Family Provider] - in less than 1 week
Prescriptions:
New
fludrocortisone 0.1 mg Tablet
0.1 mg PO BID 30 Days Qty: 60 0RF
Continued
loteprednol etabonate [Lotemax] 0.5 % Drops,Gel
1 drp BOTH EYES BID
atorvastatin 80 mg tablet
80 mg PO QPM
aspirin 81 mg Tablet,Delayed Release (Dr/Ec)
81 mg PO QPM
levothyroxine 75 mcg tablet
75 mcg PO MOTUWETHFRSA@0600
cholecalciferol (vitamin D3) [Vitamin D3] 50 mcg (2,000 unit) Tablet
50 mcg PO Q48H@1800
Rx Instructions:
09/21/2023, 1 tab taken on odd days, 2 tabs on even days.
cholecalciferol (vitamin D3) [Vitamin D3] 50 mcg (2,000 unit) Tablet
100 mcg PO Q48H@1800
Rx Instructions:
09/21/2023, 1 tab taken on odd days, 2 tabs on even days.
docusate sodium [Colace] 100 mg Capsule
100 mg PO DAILY
carbidopa-levodopa 25-100 mg tablet extended release
4 tab PO BID@0600,2200
carbidopa-levodopa 25-100 mg Tablet Extended Release
3 tab PO BID@1100,1630
lorazepam 0.5 mg Tablet
0.5 mg PO DAILY@2130
lorazepam 0.5 mg Tablet
0.5 mg PO DAILY PRN (Reason: anxiety)
docusate sodium 100 mg Capsule
100 mg PO DAILY PRN (Reason: constipation)
pramipexole 0.25 mg Tablet
0.25 mg PO TID@0600,1400,2200
sertraline 50 mg Tablet
50 mg PO DAILY@1100
mineral oil
1 tbsp PO Q48H@2130
Rx Instructions:
09/21/2023, 1 tbsp on odd days, 2 tbsp on even days.
mineral oil
2 tbsp PO Q48H@2130
Rx Instructions:
09/21/2023, 1 tbsp on odd days, 2 tbsp on even days.
Discontinued
timolol maleate 0.5 % drops
1 drp BOTH EYES BID
Discharge Orders:
Discharge Patient (As Directed); Ordered 09/25/23
Ordered By: Harlan Gomez
Discharge Date and Time
Discharge Date/Time: 09/25/23 12:12
Print Language: BELGIAN
[2023-09-25 11:28] VITALS: BP 118/52
--- NOTE | 2023-09-25 11:48 | W.PN.CD ---
Today's Communication / Plan
-
continue florinef
discussed outpatient monitor: they(patient and ) wish to defer
patient and want to see me as outpatient on as-needed basis: they will call if they want appt
please call us back with additional questions
Impression / Plan
-
Bradycardia, sinus: improved
-echo 09/21: EF 60-65%, mild AR, nl RV
-timolol eye drops have been stopped
-tele: HR 60s mostly, no heart block
-I do not see an indication for PPM at this time
-does not appear to be symptomatic bradycardia
-symptoms seem to be due to orthostatic hypotension in setting of Parkinson's, autonomic dysfunction
-continue florinef (new this admission)
Parkinson's disease, on Sinemet, sees Palliative Care in the outpatient setting
Fuchs' corneal dystrophy S/P corneal transplant
Hypothyroidism, on levothyroxine
Physical Exam
Vital Signs/Labs
Vital Signs
Temp Pulse Resp BP Pulse Ox
98.2 F 56 18 118/52 100
09/25/23 11:28 09/25/23 11:28 09/25/23 11:28 09/25/23 11:28 09/25/23 11:28
09/24/23 09/25/23 09/26/23
06:59 06:59 06:59
Actual Weight 53.388 kg
09/22/23 07:38
09/22/23 07:38
Magnesium 1.7 mg/dl (1.6-2.3) 09/21/23 14:18
Physical Exam
Constitutional: No acute distress and Comfortable
EENT: Moist mucous membranes
Cardiovascular: Rhythm & rate is regular, Pedal edema is absent, JVD pressure is normal and Systolic murmur absent
Respiratory: Respiratory effort normal, Lungs clear to auscul. and Wheeze Absent
GI: Soft
Neuro/Psych: AO x 3
Data Reviewed
-
Date of Service: September 25, 2023
EKG: Other (Tele: SR/SB 50s-60s)
--- NOTE | 2023-09-25 14:34 | CM ---
CM following re: d/c planning
Chart reviewed
Pt is medically stable for d/c
IMM was reviewed with the patient and copy provided
Pt is set up with palliative care through & also [facility] for PT/OT needs
Pt spouse & daughter at bedside to transport the patient home
No additional d/c needs to note
PLAN; d/c home with [facility] & palliative care
[facility] Fax:
--- NOTE | 2023-09-25 15:56 | VNURNOTE ---
Home Health Liaison spoke with patient's spouse Josesito by phone at [phone] to discuss [facility] nurse/therapy, visits, schedule and homebound status. Josesito is agreeable and understands that visits at home will be 2-3 x per week to assess and teach
medical management.
[facility] brochure provided with contact information. Josesito is aware that [facility] will contact them for start of care in 1-2 days after discharge from .
[facility] referral completed in [facility] Port.
== END 2023-09-25 12:12 | disposition home health service (06) | DRG 57 ==
LOC: 4 EAST ACU 18:05
PROVIDERS: Emergency Medicine; ADMITTING PHYSICIAN Hospitalist; ATTENDING PHYSICIAN Hospitalist; CONSULT PHYSICIAN Internal Medicine Cardiovascular Disease; CONSULT PHYSICIAN Psychiatry & Neurology Neurology; EMERGENCY PHYSICIAN Emergency Medicine; FAMILY PHYSICIAN Family Medicine
DX: G90.3 Multi-system degeneration of the autonomic nervous system (principal); E87.1 Hypo-osmolality and hyponatremia; I95.1 Orthostatic hypotension; G20.A1 Parkinson's disease without dyskinesia, without mention of fluctuations; E03.9 Hypothyroidism, unspecified; R00.1 Bradycardia, unspecified
CPT/HCPCS: 80053; 83735; 84100; 84443; 84484; 85025; 93005; 93306; 96360; 97116; 97163; 97167; 97530; 99285

== ENCOUNTER 2023-10-02 13:03 | Emergency (ER) | payer MEDICARE, OTHER, SELFPAY ==
[2023-10-02] VITALS (9 sets, daily range): BP systolic 99–139; BP diastolic 53–86; PULSE 52–61; BMI 21.8
--- NOTE | 2023-10-02 13:17 | ED.GENMED ---
History of Present Illness
General
Chief Complaint: Fainting Sensation
Source: patient
Exam Limitations: none
Time Seen by Provider: 10/02/23 13:16
Nursing documentation reviewed up to this point in time: agreed with
Travel History
Have you had any contact with someone who has COVID-19?: No
Do you have any symptoms of coronavirus? Fever > 100 degrees, chills, cough, shortness of breath, sore throat, loss of taste or smell, muscle aches, or headache?: No
History of Present Illness
History of Present Illness:
73-year-old female with history of recently diagnosed Parkinson's, orthostatic hypotension, FUCHs corneal dystrophy disease, hypothyroidism, anxiety/depression, presents with at bedside. states patient was standing in the kitchen at
the refrigerator 'frozen in place.' He states she did not want to let go of the refrigerator for fear of falling. He eventually led her to the couch where she sat down. He took her blood pressure sitting it was 124/59 and 103/57 then standing
74/49 then 95/54.
She was started on fludrocortisone 0.1 mg twice a day for 30 days on 09/25/2023. states he was instructed to increase it to 3 times a day starting today.
Patient was admitted 09/20 to 09/24, Echo showed 60-65% EF, discharged with visiting nurse, PT, OT, speech therapy.
is extremely concerned that patient will fall, he does not want to take her home as she was orthostatic (he reports) even on the Florinef. He feels she should be monitored 24/ as she is at risk for fall.
Pt states she and are under a lot of stress due to both of their medical conditions, family issues.
She states she was walking around the kitchen 'fine' felt 'woozy, not dizzy,' feet felt wobbly then came and walked her to couch.
Past History
Past History
ED Past Medical History: Cancer and Other (parkinsons)
ED Past Surgical History: Other
Social History
Tobacco: Non-smoker
Alcohol: None
Drug: None
Personal:
Living: with family
Employment: Retired
Review of Systems
Review of Systems
Allergies reviewed?: Yes
All Other Systems: ROS reviewed and negative except as documented in HPI and ROS
Constitutional: Denies fever
Respiratory: Denies trouble breathing
Cardiac: Denies chest pain or syncope
ABD/GI: Denies abdominal pain, nausea or vomiting
: Denies dysuria, frequency, incontinence, difficulty voiding or urgency
Musculoskeletal: Denies edema
Skin: Reports no symptoms
Neurological: Reports other
Phy Exam
Physical Exam
Physical Exam:
GENERAL: No acute distress. A&Ox3. Elderly and frail
CONSTITUTIONAL: Afebrile.
EYES: PERRL, conjunctivae normal, eyelids droopy
ENMT: moist mucus membranes, Pharynx nl
RESPIRATORY: Regular respirations, nonlabored, lungs clear.
CARDIOVASCULAR: Regular rate and rhythm, no murmurs, no rubs.
GI: Soft, nontender, normal BS
MUSCULOSKELETAL: Moves with ease. Well perfused.
SKIN: Warm, dry, pink
PSYCH: Depressed mood and affect. Well kept, interactive and appropriate
NEUROLOGIC: Awake, alert and oriented. No focal neurological deficits
Course
Orders/Labs/Results
Orders:
Orders
10/02/23 13:17
EKG [Electrocardiogram (*1)] Urgent
Reason for Study: Syncope
EKG- Treatment ONCE
10/02/23 13:18
Orthostatic VS- Treatment ONCE
10/02/23 14:33
CMP [Comprehensive Metabolic Panel] Urgent
Complete Blood Count/With Diff Urgent
10/02/23 16:40
Midodrine [ProAmatine] 5 mg PO NOW STA
10/02/23 16:44
Midodrine [ProAmatine] 2.5 mg PO NOW STA
Abnormal Lab Results
10/02/23
14:33
RBC 3.87 L 10^6/uL
(4.20-5.40)
Hgb 11.1 L g/dL
(12.0-16.0)
Hct 34.1 L %
(37.0-47.0)
MCHC 32.6 L g/dL
(33.0-37.0)
Absolute Lymphs (auto) 0.7 L 10^3/uL
(1.2-3.4)
Lymphocytes % 14.9 L %
(20.5-51.1)
Monocytes % 10.8 H %
(1.7-9.3)
Sodium 131 L mmol/L
(135-145)
Chloride 93 L mmol/L
(98-107)
Carbon Dioxide 32 H mmol/L
(22-30)
Creatinine 0.4 L mg/dL
(0.6-1.0)
10/02/23 14:33
10/02/23 14:33
Vital Signs
Initial and Last Documented VS:
Initial Vital Signs
Temp Pulse Resp BP Pulse Ox
98.9 F 68 16 99/67 100
10/02/23 13:06 10/02/23 13:06 10/02/23 13:06 10/02/23 13:06 10/02/23 13:06
Last Documented Vital Signs
Temp Pulse Resp BP Pulse Ox
98.9 F 64 18 116/72 95
10/02/23 13:06 10/02/23 17:15 10/02/23 17:15 10/02/23 17:15 10/02/23 17:15
MDM/Problems Addressed
Differential Diagnosis Includes:
orthostatic hypotension, dehydration
MDM/Problems Addressed:
73-year-old female with history of recently diagnosed Parkinson's, orthostatic hypotension, FUCHs corneal dystrophy disease, hypothyroidism, anxiety/depression, presents with at bedside. states patient was standing in the kitchen at
the refrigerator 'frozen in place.' He states she did not want to let go of the refrigerator for fear of falling. He eventually led her to the couch where she sat down. He took her blood pressure sitting it was 124/59 and 103/57 then standing
74/49 then 95/54.
She was started on fludrocortisone 0.1 mg twice a day for 30 days on 09/25/2023. states he was instructed to increase it to 3 times a day starting today.
Patient was admitted 09/20 to 09/24, Echo showed 60-65% EF, discharged with visiting nurse, PT, OT, speech therapy.
is extremely concerned that patient will fall, he does not want to take her home as she was orthostatic (he reports) even on the Florinef. He feels she should be monitored 24/ as she is at risk for fall.
Pt states she and are under a lot of stress due to both of their medical conditions, family issues.
She states she was walking around the kitchen 'fine' felt 'woozy, not dizzy,' feet felt wobbly then came and walked her to couch.
EKG: Sinus bradycardia heart rate 56
10/02/2023 3:00 PM
CBC: No clinically significant abnormality
CMP: No clinically significant abnormality
Orthostatics mildly positive, heart rate remained basically the same but blood pressure dropped from 139 sitting to 116 standing and patient was asymptomatic
This orthostatic hypotension is not new and may be neurogenic according to the neurology notes
Consulted [employer] Dr. Mancilla who recommends reducing Florinef back to BID and adding Midodrine.
Pt has appt with PCP in 3 days.
Patient has been offered admission but due to go home on the midodrine
Patient's is well versed on taking her blood pressure, knowing the symptoms of orthostatic hypotension.
*Critical Care Note
Total Time (30-74mins, 75-104mins- exclusive of procedures): Not Applicable
ED Attending Note
-
Portions of this chart may have been created with voice recognition software.� Occasional wrong word or��sound alike� substitutions may have occurred due to the inherent limitations of voice recognition software.
Discharge Plan
Departure
Patient Disposition: Home (Routine Discharge)
Date of Disposition: 10/02/23
Time of Disposition: 16:40
Patient with high blood pressure during this ER visit?: No
Condition: Fair
Discharge Problem:
Orthostatic hypotension
Instructions: Orthostatic Hypotension (DC), Low Blood Pressure (DC)
Prescriptions:
New
midodrine 2.5 mg tablet
2.5 mg PO DAILYPRN PRN (Reason: low blood pressure) Qty: 30 0RF
No Action
loteprednol etabonate [Lotemax] 0.5 % Drops,Gel
1 drp BOTH EYES BID
atorvastatin 80 mg tablet
80 mg PO QPM
aspirin 81 mg Tablet,Delayed Release (Dr/Ec)
81 mg PO QPM
levothyroxine 75 mcg tablet
75 mcg PO MOTUWETHFRSA@0600
cholecalciferol (vitamin D3) [Vitamin D3] 50 mcg (2,000 unit) Tablet
50 mcg PO Q48H@1800
Rx Instructions:
09/21/2023, 1 tab taken on odd days, 2 tabs on even days.
cholecalciferol (vitamin D3) [Vitamin D3] 50 mcg (2,000 unit) Tablet
100 mcg PO Q48H@1800
Rx Instructions:
09/21/2023, 1 tab taken on odd days, 2 tabs on even days.
docusate sodium [Colace] 100 mg Capsule
100 mg PO DAILY
carbidopa-levodopa 25-100 mg tablet extended release
4 tab PO BID@0600,2200
carbidopa-levodopa 25-100 mg Tablet Extended Release
3 tab PO BID@1100,1630
lorazepam 0.5 mg Tablet
0.5 mg PO DAILY@2129
lorazepam 0.5 mg Tablet
0.5 mg PO DAILY PRN (Reason: anxiety)
docusate sodium 100 mg Capsule
100 mg PO DAILY PRN (Reason: constipation)
pramipexole 0.25 mg Tablet
0.25 mg PO TID@0600,1400,2200
sertraline 50 mg Tablet
50 mg PO DAILY@1100
mineral oil
1 tbsp PO Q48H@2129
Rx Instructions:
09/21/2023, 1 tbsp on odd days, 2 tbsp on even days.
mineral oil
2 tbsp PO Q48H@2129
Rx Instructions:
09/21/2023, 1 tbsp on odd days, 2 tbsp on even days.
fludrocortisone 0.1 mg Tablet
0.1 mg PO BID 30 Days Qty: 60 0RF
Referrals:
Israel Hairston MD [Family Provider] - Keep scheduled appt
Activity Restrictions/Additional Instructions:
As we discussed, take the Midodrine 2.5 mg tablets daily at noon.
Check your blood pressure at noon, If your systolic pressure (the top number) is above 130, do not take it for that day.
Do not take it after 5 p.m. as when you lay down, your blood pressure can go too high.
Keep your appointment with your primary doctor Thursday and your commercial real estate broker as scheduled later this month
Do not increase your Fludrocortisone to 3 times a day, KEEP IT AT twice daily.
Interventions
Interventions:
*Risk Screen - Suicide Last Done: 10/02/23 13:27
*General Assessment Last Done: 10/02/23 13:27
*Neglect/Abuse Screening Last Done: 10/02/23 13:27
ED- Fall Risk Assessment Last Done: 10/02/23 13:27
*ED COVID-19 Vaccine History Last Done: 10/02/23 13:27
*Nursing Disposition Last Done: 10/02/23 17:15
ED- Cardiac Assessment Last Done: 10/02/23 13:27
ED- Neurological Assessment Last Done: 10/02/23 13:27
Discharge Date and Time
Discharge Date/Time: 10/02/23 17:20
Print Language: SOUTH AFRICAN
[2023-10-02 14:41] LABS: % Basophils 0.2 % (0-2); % Eosinophils 0.6 % (0-6); % Immature Granulocytes 0.2 % (0-0.5); % Lymphocytes 14.9 % (20.5-51.1); % Monocytes 10.8 % (1.7-9.3); % Neutrophils 73.3 % (42.2-75.2); Absolute Lymphocytes 0.7 10^3/uL (1.2-3.4); Absolute Monocytes 0.5 10^3/uL (0.1-0.6); Absolute Neutrophils 3.5 10^3/uL (1.4-6.5); Hematocrit 34.1 % (37.0-47.0); Hemoglobin 11.1 g/dL (12.0-16.0); Mean Corp Hgb Conc. 32.6 g/dL (33.0-37.0); Mean Corpuscular Hgb 28.7 pg (27.0-31.0); Mean Corpuscular Volume 88.1 fL (81.0-99.0); Mean Platelet Volume 10.2 fL (7.4-10.4); Nucleated Red Blood Cells % 0 %; Platelet Count 255 10^3/uL (130-400); Red Blood Cell Count 3.87 10^6/uL (4.20-5.40); Red Cell Dist. Width 13.3 % (11.5-14.5); White Blood Cell Count 4.8 10^3/uL (4.8-10.8)
[2023-10-02 14:55] LABS: ALT (SGPT) < 10 U/L (0-35); AST (SGOT) 25 U/L (14-36); Albumin 4.2 g/dl (3.5-5.0); Alkaline Phosphatase 86 U/L (38-126); Blood Urea Nitrogen 8 mg/dl (7-17); Calcium 9.8 mg/dl (8.4-10.2); Carbon Dioxide 32 mmol/L (22-30); Chloride 93 mmol/L (98-107); Estimated Creatinine Clearance 69 ml/min; Glucose 83 mg/dl (70-99); Potassium 3.9 mmol/L (3.5-5.1); Sodium 131 mmol/L (135-145); Total Protein 6.8 g/dl (6.3-8.2); eGFR > 60.00
[2023-10-02] MEDS: ProAmatine 2.5 MG PO (17:02)
--- NOTE | 2023-10-02 17:20 | EDRN ---
Patient and her given discharge instructions by ANTONIO Bonilla. Both stated that they understood. Patient taken to lobby in wheelchair,
== END 2023-10-02 17:20 | disposition home or self-care (01) ==
LOC: EMR 13:03
PROVIDERS: EMERGENCY PHYSICIAN Emergency Medicine; FAMILY PHYSICIAN Family Medicine
DX: I95.1 Orthostatic hypotension (principal); E03.9 Hypothyroidism, unspecified; F32.A Depression, unspecified; F41.9 Anxiety disorder, unspecified; G20.A1 Parkinson's disease without dyskinesia, without mention of fluctuations
CPT/HCPCS: 99283; 80053; 85025; 93005

== ENCOUNTER 2023-12-02 13:22 | Inpatient (IN) | payer MEDICARE, OTHER, SELFPAY ==
[2023-12-02] VITALS (26 sets, daily range): BP systolic 96–173; BP diastolic 47–92; BMI 18.3
--- NOTE | 2023-12-02 06:50 | ED.GENMED ---
History of Present Illness
General
Chief Complaint: Change in Mental Status
Time Seen by Provider: 12/02/23 06:49
Travel History
Have you had any contact with someone who has COVID-19?: No
Do you have any symptoms of coronavirus? Fever > 100 degrees, chills, cough, shortness of breath, sore throat, loss of taste or smell, muscle aches, or headache?: No
History of Present Illness
History of Present Illness:
HPI: The patient has a history of Parkinson's. Last night family was concerned about her mental status and EMS came out but patient refused to come to the hospital. Symptoms persisted/worsened this morning and EMS was again called and in
discussion with the medical command ER physician, the patient was brought to the hospital. The patient has no specific complaints but does admit to being confused. She denies any urinary symptoms.
EXAM:
GENERAL: Prominent tremor noted to the extremities consistent with Parkinson's
HEENT: Slightly dry oral mucosa
CARDIOVASCULAR: No murmurs, normal heart rate, regular rhythm, No chest wall tenderness
PULMONARY: No respiratory distress, breath sounds are clear and equal
ABDOMEN: Soft with no peritoneal signs, no tenderness
NEUROLOGIC: Fair strength all extremities, no coordination deficits
PSYCHIATRIC: She is oriented to month and place but has limited insight and judgment�she told me 'I saw you in the ER waiting room'�I have never seen her before.
EXTREMITIES: Nontender, trace bilateral lower extremity edema, moves all extremities equally
SKIN: No rash, no lesions
TIME OF INITIAL ENCOUNTER: 7:00 AM
NUMBER AND COMPLEXITY OF PROBLEMS ADDRESSED AT THE ENCOUNTER
� Chronic conditions affecting care: Parkinson's, Breast cancer
� Acute Exacerbation and/or Progression of Chronic Illness: This is a subacute problem
� Differential Diagnosis includes: Progression of Parkinson's, dementia, psychosis
AMOUNT AND/OR COMPLEXITY OF DATA TO BE REVIEWED AND ANALYZED
� I performed an independent evaluation of and my interpretation is:
EKG:
CT: Brain CT unremarkable.
X-rays:
Laboratory Studies: White count 4.7, hemoglobin 10.7, chemistries unremarkable, I reviewed the urine culture from the other day that suggested contaminated specimen
Other:
� Review of other/old records: I reviewed the urinalysis from the other day which showed a contaminated specimen
� Clinical information was obtained by an independent historian: EMS
� Prescriptions/Medications Considered but not given:
� Further testing considered but not performed:
RISK OF COMPLICATIONS AND/OR MORBIDITY OR MORTALITY OF PATIENT MANAGEMENT
� Social determinants of health affecting care: Lives at home
� Discussion with other providers: Already evaluated the patient in the ED and recommended patient stay in the hospital for further management. The patient cannot be safely discharged
� Escalation of care including admission/observation vs risk of discharge considered: The patient was given IV fluids. Patient adamantly refused cath for urinalysis/culture.
Past History
Past History
ED Past Medical History: Cancer and Other (parkinsons)
ED Past Surgical History: Other
Social History
Tobacco: Non-smoker
Alcohol: None
Drug: None
Personal:
Living: with family
Employment: Retired
Phy Exam
Physical Exam
Physical Exam:
See HPI
Course
Orders/Labs/Results
Orders:
Orders
12/02/23 06:51
0.9% Sodium Chloride 1000 ml [Nss] 1,000 ml IV BOLUS
12/02/23 06:59
Complete Blood Count/With Diff Urgent
Comprehensive Metabolic Panel Urgent
12/02/23 07:03
Straight cath- Treatment ONCE
Urinalysis Reflex To Culture Urgent
Carbidopa/Levodopa [Sinemet 25-100] 4 tablet PO NOW STA
12/02/23 07:08
CT Head W/o Iv Contrast Urgent
Comment:
Reason For Exam: alt ms
12/02/23 10:15
Carbidopa/Levodopa [Sinemet 25-100] 4 tablet PO NOW STA
12/02/23 11:44
Admit/Transfer Patient As Directed
Co-Sign Provider:
Level of Care: Inpatient admission
Assign to:: Medical/Surgical
Physician / Group: Dr Sanchez
Diagnosis: AMS
Reason for Hospitalization: pte p/w ams.
Expected length of stay greater than two midnights?: Yes
ELOS- Estimated Length of Stay in days: 2
I certify the patient meets the requirements for IP care: Yes
12/02/23 11:47
Code Status As Directed
Resuscitation Status: Full Code
12/02/23 11:50
NEUROLOGY CONSULT Routine
Consulting Provider: Alexander Arceo
Was physician already notified: Yes
Reason for consult: AMS/Parkinson
12/02/23 13:00
Carbidopa/Levodopa [Sinemet 25-100] 1 tablet PO QID
12/02/23 16:00
Pramipexole [Mirapex] 0.25 mg PO TID
12/03/23 21:30
Lorazepam [Ativan] 0.5 mg PO DAILY
Abnormal Lab Results
12/02/23
06:59
WBC 4.7 L 10^3/uL
(4.8-10.8)
RBC 3.75 L 10^6/uL
(4.20-5.40)
Hgb 10.7 L g/dL
(12.0-16.0)
Hct 32.2 L %
(37.0-47.0)
Monocytes % 10.0 H %
(1.7-9.3)
Creatinine 0.4 L mg/dL
(0.6-1.0)
12/02/23 06:59
12/02/23 06:59
Vital Signs
Initial and Last Documented VS:
Initial Vital Signs
Pulse Resp BP Pulse Ox
78 12 173/78 96
12/02/23 06:36 12/02/23 06:36 12/02/23 06:36 12/02/23 06:36
Last Documented Vital Signs
Temp Pulse Resp BP Pulse Ox
97.8 F 72 21 152/92 96
12/02/23 06:37 12/02/23 07:45 12/02/23 07:45 12/02/23 07:30 12/02/23 07:45
*Critical Care Note
Total Time (30-74mins, 75-104mins- exclusive of procedures): Not Applicable
ED Attending Note
-
Portions of this chart may have been created with voice recognition software.� Occasional wrong word or��sound alike� substitutions may have occurred due to the inherent limitations of voice recognition software.
Discharge Plan
Departure
Patient Disposition: Admit
Date of Disposition: 12/02/23
Time of Disposition: 10:14
Presentation/result/management discussed w/ accepting MD/DO: Hospitalist
Discharge Problem:
Adult failure to thrive
Prescriptions:
No Action
loteprednol etabonate [Lotemax] 0.5 % Drops,Gel
1 drp BOTH EYES BID
atorvastatin 80 mg tablet
80 mg PO QPM
aspirin 81 mg Tablet,Delayed Release (Dr/Ec)
81 mg PO QPM
levothyroxine 75 mcg tablet
75 mcg PO MOTUWETHFRSA@0600
cholecalciferol (vitamin D3) [Vitamin D3] 50 mcg (2,000 unit) Tablet
50 mcg PO Q48H@1800
Rx Instructions:
1 tab taken on odd days, 2 tabs on even days.
cholecalciferol (vitamin D3) [Vitamin D3] 50 mcg (2,000 unit) Tablet
100 mcg PO Q48H@1800
Rx Instructions:
1 tab taken on odd days, 2 tabs on even days.
docusate sodium [Colace] 100 mg Capsule
100 mg PO DAILY
carbidopa-levodopa 25-100 mg tablet extended release
4 tab PO BID@0600,2200
carbidopa-levodopa 25-100 mg Tablet Extended Release
3 tab PO BID@1100,1630
lorazepam 0.5 mg Tablet
0.5 mg PO HS
lorazepam 0.5 mg Tablet
0.5 mg PO BIDPRN PRN (Reason: anxiety)
pramipexole 0.25 mg Tablet
0.5 mg PO BID
sertraline 50 mg Tablet
150 mg PO DAILY@1100
midodrine 2.5 mg tablet
2.5 mg PO DAILYPRN PRN (Reason: low blood pressure) Qty: 30 0RF
ondansetron HCl 4 mg Tablet
4 mg PO Q8HPRN PRN (Reason: nausea)
brimonidine 0.1 % Drops
1 drp BOTH EYES BID
fludrocortisone 0.1 mg tablet
0.1 mg PO DAILY
Referrals:
Israel Hairston MD [Family Provider] -
Interventions
Interventions:
*Risk Screen - Suicide Last Done: 12/02/23 06:37
*General Assessment Last Done: 12/02/23 06:37
*Neglect/Abuse Screening Last Done: 12/02/23 06:37
ED- Fall Risk Assessment Last Done: 12/02/23 06:46
*ED COVID-19 Vaccine History Last Done: 12/02/23 06:46
ED- Neurological Assessment Last Done: 12/02/23 06:46
ED- Cardiac Assessment Last Done: 12/02/23 06:46
ED Swallowing Screen Last Done: 12/02/23 06:48
Discharge Date and Time
Print Language: GERMAN
[2023-12-02 07:28] LABS: % Basophils 0.4 % (0-2); % Eosinophils 1.3 % (0-6); % Lymphocytes 25.9 % (20.5-51.1); % Neutrophils 62.4 % (42.2-75.2); Absolute Eosinophils 0.1 10^3/uL (0-0.7); Absolute Lymphocytes 1.2 10^3/uL (1.2-3.4); Absolute Monocytes 0.5 10^3/uL (0.1-0.6); Absolute Neutrophils 2.9 10^3/uL (1.4-6.5); Hematocrit 32.2 % (37.0-47.0); Hemoglobin 10.7 g/dL (12.0-16.0); Mean Corp Hgb Conc. 33.2 g/dL (33.0-37.0); Mean Corpuscular Hgb 28.5 pg (27.0-31.0); Mean Corpuscular Volume 85.9 fL (81.0-99.0); Mean Platelet Volume 9.7 fL (7.4-10.4); Nucleated Red Blood Cells % 0 %; Platelet Count 232 10^3/uL (130-400); Red Blood Cell Count 3.75 10^6/uL (4.20-5.40); Red Cell Dist. Width 14.1 % (11.5-14.5); White Blood Cell Count 4.7 10^3/uL (4.8-10.8)
[2023-12-02 07:35] LABS: ALT (SGPT) < 10 U/L (0-35); AST (SGOT) 23 U/L (14-36); Albumin 3.8 g/dl (3.5-5.0); Alkaline Phosphatase 85 U/L (38-126); Blood Urea Nitrogen 11 mg/dl (7-17); Calcium 9.1 mg/dl (8.4-10.2); Carbon Dioxide 29 mmol/L (22-30); Chloride 105 mmol/L (98-107); Estimated Creatinine Clearance 60 ml/min; Glucose 79 mg/dl (70-99); Sodium 138 mmol/L (135-145); Total Bilirubin 0.8 mg/dl (0.2-1.3); Total Protein 6.5 g/dl (6.3-8.2); eGFR > 60.00
--- NOTE | 2023-12-02 09:13 | CHAP ---
Emotional support provided for Ms. Ríos's in ER waiting area. He is very frustrated and exhausted with caring for her, expressed being very alone without support. Feels that there are few options for her in terms of senior care care:
financially 'I have too much money for government help and not enough to pay for her care.' Ms. Ríos is enrolled in Palliative care and Mr. Ríos is wondering if she qualifies for hospice at this point but doesn't know what would change for
them if she was in hospice. Feels very unable to care for her at home.
[2023-12-02] MEDS: SINEMET 25-100 4 TABLET PO ×2 (11:01→21:13)
--- NOTE | 2023-12-02 11:50 | HPS.HSE ---
Addendum entered and electronically signed by Jarrett Sanchez MD 12/02/23 15:29:
After discussion with pte, code status changed to DNR. Also they want hospice evaluation.
Original Note:
Family Physician
-
Family Physician: Israel Hairston
Chief Complaint
-
ams
History of Present Illness
Patient is 73 years old female history of Parkinson's, hyperlipidemia, presented to the hospital mental status changes. Patient has been more confused over the last several days and family has requested to come to the hospital patient has refused.
Patient has declined in cognitive and memory issues over the last several months. In terms of any recent changes, pramipexole was the only change in terms of dosing. Patient denies any chest pain or shortness of breath. She has some behavioral
alterations on and off. She had some weight loss. She denies fevers or chills. She knows she is in the hospital and she understands that she is here for some mental status changes but appears calm by the time of my evaluation. Denies dysuria
urgency or frequency. Denies any cough or shortness of breath. Denies nausea vomiting or diarrhea. In the ER, CT of the scan of the head shows no acute intracranial abnormalities but chronic changes. Labs appear relatively unremarkable.
Neurology consulted in the ED who recommends admission to the hospital. Patient was referred to hospitalist service for further evaluation.
Medical History
Past Medical History
Past Medical History: Reports Other (Hyperlipidemia, hypothyroidism, depression, anxiety, Parkinson's disease, dementia, breast cancer, osteopenia)
Past Surgical History: Reports Gynocological
Social History
Tobacco: Non-smoker
Alcohol: None
Drug: None
Family History
Family History: Not pertinent
Allergies / Home Medications
Allergies reflects when Allergies were last updated in [employer].
Home Medications with original date entered in [employer]
Allergy/Medication List:
Allergies
Allergy/AdvReac Type Severity Reaction Status Date / Time
No Known Allergies Allergy Verified 10/02/23 13:06
Home Medications
loteprednol etabonate 0.5 % eye gel drops (Lotemax) 1 drp BOTH EYES BID Eye Condition 09/19/09
aspirin 81 mg tablet,delayed release 81 mg PO QPM Blood Clot Prevention/Tx 07/28/23
atorvastatin 80 mg tablet 80 mg PO QPM High Cholesterol 07/28/23
cholecalciferol (vitamin D3) 50 mcg (2,000 unit) tablet (Vitamin D3) 50 mcg PO Q48H@1800 Supplement 07/28/23
cholecalciferol (vitamin D3) 50 mcg (2,000 unit) tablet (Vitamin D3) 100 mcg PO Q48H@1800 Supplement 07/28/23
levothyroxine 75 mcg tablet 75 mcg PO MOTUWETHFRSA@0600 Thyroid 07/28/23
carbidopa ER 25 mg-levodopa 100 mg tablet,extended release 3 tab PO BID@1100,1630 PARKINSON 09/21/23
carbidopa ER 25 mg-levodopa 100 mg tablet,extended release 4 tab PO BID@0600,2200 parkinson's disease 09/21/23
docusate sodium 100 mg capsule (Colace) 100 mg PO DAILY Constipation 09/21/23
lorazepam 0.5 mg tablet 0.5 mg PO BIDPRN PRN anxiety 09/21/23
lorazepam 0.5 mg tablet 0.5 mg PO HS 09/21/23
pramipexole 0.25 mg tablet 0.5 mg PO BID Neurological Condition 09/21/23
sertraline 50 mg tablet 150 mg PO DAILY@1100 Mental Health/Anxiety 09/21/23
midodrine 2.5 mg tablet 2.5 mg PO DAILYPRN PRN low blood pressure #30 tabs 10/02/23
brimonidine 0.1 % eye drops 1 drp BOTH EYES BID 12/02/23
fludrocortisone 0.1 mg tablet 0.1 mg PO DAILY 12/02/23
ondansetron HCl 4 mg tablet 4 mg PO Q8HPRN PRN nausea 12/02/23
Review of Systems
-
A 12 point ROS was completed and negative except as noted: Yes
Physical Exam
Vital Signs
Vital Signs
Temp Pulse Resp BP Pulse Ox
97.8 F 72 21 152/92 96
12/02/23 06:37 12/02/23 07:45 12/02/23 07:45 12/02/23 07:30 12/02/23 07:45
Physical exam:
General: Acutely ill
HEENT: Normocephalic, Atraumatic and Moist Mucous Membranes
Respiratory: Clear to Auscultation; Negative Wheezes, Rales or Rhonchi
Cardiac: Regular Rhythm and S1/S2
GI: Soft, Nontender and Nondistended
Musculoskeletal: No Clubbing, No Cyanosis and No Edema
Neuro: Awake, Alert and Oriented. Increased tonicity. Resting tremors evident left upper extremity and right lower extremity.
Psych: Calm
Physical Exam
General: Other
Laboratory Results
-
12/02/23 06:59
12/02/23 06:59
Laboratory Results
Total Bilirubin 0.8 mg/dl (0.2-1.3) 12/02/23 06:59
AST 23 U/L (14-36) 12/02/23 06:59
ALT < 10 U/L (0-35) 12/02/23 06:59
Alkaline Phosphatase 85 U/L (38-126) 12/02/23 06:59
Impression/Plan
-
IMPRESSION:
Patient 73 years old female multiple comorbidities presented to the hospital mental status changes. Patient presentation consistent with a toxic metabolic encephalopathy. Possible medications contributing versus progression of her neuropsychiatry
illness. Either way she will need to be here in the hospital for further evaluation and management otherwise at increased risk of morbidity mortality.
Impression:
Toxic metabolic encephalopathy
Parkinson's
Dementia Parkinson's related
Conditions prior to presentation:
Hyperlipidemia
Depression anxiety
Hypothyroidism
PLAN:
Admit to MedSurg
Decrease doses of pramipexole
Continue Sinemet
Continue lorazepam
Can use olanzapine as needed
PT OT eval
Lovenox 40 mg subcu for DVT prophylaxis
CODE STATUS full code
Will give further recommendations based on her clinical course
Total time spent on today's encounter was 55 minutes which included time spent in counseling the patient/family regarding diagnosis and treatment plan as listed above, goals of care, and symptom management. Case was discussed with nursing staff,
specialists, and care coordinators/case management. All labs and imaging personally reviewed by me. Remainder the time spent in detailed review of previous records, lab data, imaging, and other medical provider documentation.
--- NOTE | 2023-12-02 12:42 | CON.NEURO4 ---
Consultation - Neurology 4
-
CONSULTING PHYSICIAN: Pipe Arceo
REFERRING PHYSICIAN: ER
DICTATED BY: Pipe Arceo
DATE/TIME OF REQUEST: 12/02/23
DATE/TIME OF CONSULTATION: 12/02/23
Reason for Consultation: Parkinson's, confusion, behavioral abnormalities
History of Present Illness:
Patient is a 73-year-old woman with a past ministry of Parkinson's disease presents to hospital with approximately 3 days of confusion, being not cooperative and not taking medications.
Patient is generally cared for by her at home and she seems to have had more confusion in the past 3 days which she was an abrupt change for her. At this point she has been refusing to take some medications and patient's had wanted
her to come to the ER earlier but she had refused to do this. Here in the ER she has refused medications for Parkinson's disease. Patient does endorse feeling confused she denies any hallucinations at this time.
Patient had endorsed memory difficulties to the outpatient neurology office she sees Dr. Kelsey and Suzanna Jones COILER OPERATOR in our neurology office. Additionally patient also sees Dr. Ashvin Recio of local neurology group.
Patient's relates that the patient does usually take 0.5 mg lorazepam at night mainly for anxiety and helping with her sleep, a few days a week she will also take one 0.5 dose of lorazepam in the afternoon to help with anxiety.
also relates that he thinks that she had had an increase in pramipexole a couple of weeks ago and that this was her only recent significant medication change.
Relevant current medications include Sinemet 4 tabs at 6 AM 3 tabs at 11 AM 3 tabs at 430 and 4 tabs at 10 PM.
Pramipexole he reports is one 0.5 mg pill at 6 AM, two pills at 2 PM, and 2 pills at 10 PM.
Patient was diagnosed with Parkinson's as the reason around 2019 she seemed to have the development of tremor around 2019.
Patient's says that in general she has seen an overall decline in all function including physical and medical since around July. She had been hospitalized at the end of June with worsening of encephalopathy and again in August
dizziness and orthostatic hypotension.
Patient's relates around 20 pound weight loss in the patient in past couple of months.
Past Medical History: Parkinson's disease diagnosed around 2019, hyperlipidemia, anxiety
Surgical History: Gynecologic surgery
Family History: Non-contributory
Social History: and lives at home with her , no significant tobacco or alcohol use
Allergies: No known drug allergies
Review of Symptoms:
Patient denies any fever, headache, chest pain, shortness of breath, GI or symptoms.
Physical Exam:
Elderly woman appears chronically ill, no signs of head or neck trauma oropharynx is dry eyes are clear neck with no masses heart rate regular breathing unlabored abdomen soft nontender no lower extremity rash or joint deformity is seen
Neurologic Examination:
Patient largely does not want to cooperate with most of the neurologic examination
Patient is awake and alert she is not able to understands or converse about complex topic she does recognize her and obey simple commands and answer simple questions but cannot give detailed history as to how she confused and the most recent
events leading up to her being in the ER. She shows no evidence of aphasia. Has difficulty with complex tasks and concepts
Resting gaze is midline smile is grossly symmetric mild dysarthria is present
Motor examination shows obvious resting tremor more on the left arm and leg in the right
Neuro Imaging: CT head non contrast no acute abnormalities
Impressions
Parkinson's disease with associated cognitive impairment and may have progressed to the point of dementia at this point.
Some potential for afternoon lorazepam taken intermittently as well as the increased dose of pramipexole several weeks ago contributing to confusion. However I do suspect that the patient is in general showing a global decline in function including
worsening cognitive function.
In speaking with the patient's he is quite overwhelmed at this point the patient has not been agreeable and refusing medical care as well as medications for Parkinson's disease. It does seem that we are at the point where the patient would
need further care and he can provide at home. Understanding that there are drawbacks to hospitalization for patient with cognitive impairment and Parkinson's disease probably does warrant hospitalization at this point to discuss with case
management and also the consideration of hospice which the patient's is interested in.
I do feel that hospice does seem like an appropriate consideration given the patient's global decline since July and the presence of incurable neurodegenerative disease accompanied by cognitive impairment if not dementia at this time.
Additionally she has had significant weight loss according to her as well as decreased appetite.
Recommendations:
1. Although the patient may refuse medications for now would resume her home scheduling of Sinemet
2. Would do a small dose decrease in pramipexole as this medication could be playing some role in her increased confusion, decreased to one 0.5 mg tablet 3 times daily
3. If there is significant agitation could use IM low-dose olanzapine, PO Quetiapine is preferable if she will take PO. Essential to avoid earlier generation antipsychotics such as haloperidol.
4. Case management and hospice consults
5. Decrease Lorazepam to one 0.5 mg tablet at night only and stop the afternoon PRN dose
6. No role for further brain imaging
Discussed patient care with: Patient and her , ED physician
--- NOTE | 2023-12-02 13:41 | CM ---
Addendum entered by David Toledo 12/02/23 15:35:
Hospice consult noted.
Both pt and her preferred hospice.
A referral to hospice made.
Original Note:
CM following re: discharge planning.
Reviewed pt's chart, met with pt and had a long meeting with pt's .
Pt is a 73 year old female, admitted with primary dx of Parkinson's, confusion, behavioral abnormalities.
Pt reports she lives with 2nd floor apartment, no steps, has 3 sons. Pt reports she ambulates with a cane mostly, has a walker and a wheelchair and does not use them. Pt stated she has a good day and a bad day with her functional ability. Pt
reports she is known to [facility] at home rehab and Palliative care. During interview, pt stated she does not feel good and she asked hugh talk to her .
CM met with pt's Josesito who brought to me his concerns regarding his ability to continue caring for his spouse at home. Pt's stated that he does not know for how long he can afford paying a rent for the apartment and he might need
to find a smaller and more affordable place to live. Pt's stated that one son lives with them and he is in the hospital right now and per he does not known whether or not his son can continue staying at his apartment. Pt's
stated 'I feel that my is giving up and she wants God can take her and I am giving up caring for her... I do not know what should I do. I cannot afford to pay for her in a retirement and I cannot continue to care for her at home. If she is
giving up then I think hospice will be the answer'. Emotional support offered and provided.
Pt's requested to talk to MD to figure out what the plan is and pt's is requested/demanded to talk now. Pt's stated: 'i have a temper and it is going close to it'.
PCP: Israel Hairston
Pharmacy: [facility]
D/C plan: uncertain at this time and will depend on pt's progress
CM will follow with discharge plan updates as hospitalization progresses
[2023-12-02] MEDS: ATIVAN 0.5 MG IV (14:32)
[2023-12-02] MEDS: LR 1000 IV (14:44)
--- NOTE | 2023-12-02 15:25 | HOSPNOTE ---
Spoke with spouse about hospice and the philosophy. The plan is patient is being admitted and I will follow up tomorrow and order equipment for delivery tomorrow and get patient home in the afternoon. The spouse is agreeable to that plan. Emotional
support provided. Asked for referral to be sent. Will follow up tomorrow and hopefully get the patient discharged to home on hospice services. Dr Sanchez in agreement with plan.
[2023-12-02] MEDS: MIRAPEX 0.25 MG PO ×2 (16:02→21:13)
[2023-12-02] MEDS: COLACE 100 MG PO (16:02)
[2023-12-02] MEDS: TYLENOL 650 MG PO ×2 (16:03→21:12)
[2023-12-02] MEDS: ASPIR LOW (ENTERIC COATED) 81 MG PO (16:04)
[2023-12-02] MEDS: SINEMET 25-100 3 TABLET PO (16:11)
[2023-12-02] MEDS: FLORINEF 0.100000000000000006 MG PO (17:41)
--- NOTE | 2023-12-02 17:50 | EDRN ---
Patient taken to room 430-1 on stretcher by ED RN with LR infusing at 65 ml/HR. Family with patient.
[2023-12-02] MEDS: LOVENOX 40 MG SC (18:19)
[2023-12-02] MEDS: VITAMIN D3 (cholecalciferol) 50 MCG PO (18:19)
[2023-12-02] MEDS: LIPITOR 80 MG PO (18:19)
[2023-12-02] MEDS: ALPHAGAN P 0.1% EYE DROPS 1 DROP BOTH EYES (21:12)
--- NOTE | 2023-12-02 21:40 | PTCARENOTE ---
Pt AAOx3, pleasant, forgetful to detail. OOB w/assist x1 to [facility]. Unable to collect U/A at this time (pt had BM). Offers no complaints. Full physical assessment documented. LR infusing via #20 LH without incident. Call fong within reach and bed
alarm active for safety. Plan of care ongoing.
[2023-12-03] MEDS: TYLENOL PO ×3 (00:29→12:54)
[2023-12-03] MEDS: LR 1000 IV (05:09)
[2023-12-03] MEDS: SYNTHROID 75 MCG PO (06:11)
[2023-12-03] MEDS: SINEMET 25-100 4 TABLET PO (06:11)
--- NOTE | 2023-12-03 06:27 | PTCARENOTE ---
Pt confused upon wakening. Refusing to provide urine specimen, states 'you are trying to confuse me'. Appears paranoid during med pass, inspecting medication and repeatedly questioning. Able to be reoriented at this time. Plan of care ongoing.
[2023-12-03 07:50] VITALS: BP 138/63
--- NOTE | 2023-12-03 09:14 | W.PN.HOSP.TC ---
Today's Communication/Plan
-
IV Ativan as needed. Start comfort care measures.
Assessment / Plan
Assessment / Plan
Physical exam:
General: Acutely ill
HEENT: Normocephalic, Atraumatic and Moist Mucous Membranes
Respiratory: Clear to Auscultation; Negative Wheezes, Rales or Rhonchi
Cardiac: Regular Rhythm and S1/S2
GI: Soft, Nontender and Nondistended
Musculoskeletal: No Clubbing, No Cyanosis and No Edema
Neuro: Awake, Alert and Oriented. Increased tonicity. Resting tremors evident left upper extremity and right lower extremity.
Psych: Calm
A/P:
Impression:
Toxic metabolic encephalopathy
Parkinson's
Dementia Parkinson's related
Conditions prior to presentation:
Hyperlipidemia
Depression anxiety
Hypothyroidism
PLAN:
IV Ativan stat and as needed.
I had lengthy discussion with patient and . I also met with and friends couple that is close to the family and wanted to discuss more details. Discussed with wilton weaver. Agreement to move forward with comfort care measures and home
hospice upon discharge once we are able to transition to oral medications. Wants to continue current medications and institute comfort care medications. Will reevaluate any needs down the road. Reached out to neurology as well.
Prior to today:
Decrease doses of pramipexole
Continue Sinemet
Continue lorazepam
Can use olanzapine as needed
PT OT eval
Lovenox 40 mg subcu for DVT prophylaxis
CODE STATUS DNR
Total time spent on today's encounter was 52 minutes which included time spent in counseling the patient/family regarding diagnosis and treatment plan as listed above, goals of care, and symptom management. Case was discussed with nursing staff,
specialists, and care coordinators/case management. All labs and imaging personally reviewed by me. Remainder the time spent in detailed review of previous records, lab data, imaging, and other medical provider documentation.
Anticipated Discharge: > 48 hours
Subjective/Interval History
-
Date of Service: December 03, 2023
Patient very anxious and yelling 'she needs help'. I immediately came to bedside along with hospital who was very overwhelmed over what has been transpiring.
Objective Data
-
Labs:
Laboratory Results
12/03/23
06:00
WBC Pending
Hgb Pending
Hct Pending
Plt Count Pending
Sodium Pending
Potassium Pending
Chloride Pending
Carbon Dioxide Pending
BUN Pending
Creatinine Pending
Glucose Pending
Calcium Pending
Vital Signs:
Vital Signs
Temp Pulse Resp BP Pulse Ox
97.5 F 59 17 138/63 97
12/03/23 07:50 12/03/23 07:50 12/03/23 07:50 12/03/23 07:50 12/03/23 07:50
[2023-12-03] MEDS: MIRAPEX PO ×2 (09:55→10:05)
[2023-12-03] MEDS: ALPHAGAN P 0.1% EYE DROPS BOTH EYES ×2 (09:56→10:05)
--- NOTE | 2023-12-03 09:56 | PTOTSP ---
ST Acute Care Evaluation Attempt
Chart reviewed. Pt's medical hx significant for Parkinson's dementia with progression. Attempted to see pt for evaluation; however, pt adamantly refused to participate. Pt visibly upset. at bedside also very upset. Comfort provided to both.
Pt's denied any difficulty at home, but it was reported that she gets chopped solids at home. Will send message to re: possibility for considering soft bite sized solids at this time. Will try to f/u as able.
[2023-12-03] MEDS: COLACE PO ×2 (09:57→10:05)
[2023-12-03] MEDS: FLORINEF PO ×2 (09:57→10:06)
[2023-12-03] MEDS: TYLENOL 650 MG PO ×2 (10:06→16:28)
--- NOTE | 2023-12-03 11:12 | CM ---
Plan for patient is for possible home with [facility].
Plan; Home with spouse and [facility].
--- NOTE | 2023-12-03 12:16 | HOSPNOTE ---
Spoke at length again to spouse about hospice and the philosophy. The plan is home on [facility] on Monday 12/04. The spouse will be driving the patient home no transport is needed. The spouse wishes to talk with Dr Sanchez and a TT was sent and "Marisol"Laura will speak with spouse shortly. The spouse is requesting the patient be medicated for anxiety when needed and to please discontinue the IV hydration. The spouse needs until Thursday to get some care in place. Dr Sanchez aware of plan and case
management updated. Once patient is home we will admit onto our services.
[2023-12-03] MEDS: ATIVAN 1 MG IV ×2 (12:32→20:26)
[2023-12-03] MEDS: NSS (PRESERVATIVE FREE) 0.5 ML IV ×2 (12:34→20:28)
--- NOTE | 2023-12-03 12:38 | PTOTSP ---
Orders received, chart reveiwed. Spoke with RN and reviewed chart; patient has signed on to hospice care and does not 'want to to anything to upset her.' This includes therapies.
Will discharge from caseload. If needs change, please re-consult.
[2023-12-03] MEDS: SINEMET 25-100 PO (12:54)
[2023-12-03] MEDS: ZOLOFT PO (12:54)
[2023-12-03 14:50] LABS: Urine Albumin Negative (Neg - Trace); Urine Bilirubin Negative (Negative); Urine Character Clear (Clear); Urine Color Yellow; Urine Glucose Negative (Negative); Urine Ketone 1+ (Negative); Urine Leukocyte Trace (Negative); Urine Nitrite Negative (Negative); Urine Occult Blood Negative (Negative); Urine Urobilinogen Negative (Neg - 1+)
[2023-12-03 15:16] LABS: Urine Red Blood Cell 0-2 /HPF (0-2); Urine Squamous Cell 0-2 /LPF (Few); Urine White Cell 0-2 /HPF (0-5)
[2023-12-03 15:25] VITALS: BP 171/75
[2023-12-03] MEDS: LIPITOR 80 MG PO (16:28)
[2023-12-03] MEDS: ASPIR LOW (ENTERIC COATED) 81 MG PO (16:28)
[2023-12-03] MEDS: MIRAPEX 0.25 MG PO (16:28)
[2023-12-03] MEDS: SINEMET 25-100 3 TABLET PO (16:28)
[2023-12-03] MEDS: LOVENOX 40 MG SC (16:31)
[2023-12-03] MEDS: VITAMIN D3 (cholecalciferol) 100 MCG PO (16:32)
[2023-12-03 17:00] VITALS: BMI 18.3
[2023-12-03 23:05] VITALS: BP 155/71
[2023-12-04] MEDS: SINEMET 25-100 4 TABLET PO (01:27)
[2023-12-04] MEDS: TYLENOL 650 MG PO (01:27)
[2023-12-04] MEDS: ATIVAN 0.5 MG PO (01:28)
[2023-12-04] MEDS: MIRAPEX 0.25 MG PO (01:29)
[2023-12-04] MEDS: ALPHAGAN P 0.1% EYE DROPS 1 DROP BOTH EYES ×2 (01:30→08:19)
[2023-12-04] MEDS: TYLENOL PO ×6 (01:40→23:10)
[2023-12-04 07:00] VITALS: BP 125/60
--- NOTE | 2023-12-04 07:21 | PTCARENOTE ---
Pt refused nursing assessment multiple times throughout shift. Hourly rounds, pt showed no signs of distress. VS completed: BP 155/71, Temp 98.3, Pulse 77, Resp rate 18, O2 97% on RA. AAXO2. Pt able to make their needs known. Call fong in reach.
Plan of care ongoing.
[2023-12-04] MEDS: SINEMET 25-100 PO ×2 (08:17→09:59)
[2023-12-04] MEDS: MIRAPEX PO ×2 (08:18→09:58)
[2023-12-04] MEDS: COLACE PO ×2 (08:18→09:59)
[2023-12-04] MEDS: FLORINEF PO ×2 (08:18→09:59)
[2023-12-04] MEDS: SYNTHROID PO ×2 (08:18→09:59)
--- NOTE | 2023-12-04 08:37 | W.PN.HOSP.TC ---
Addendum entered and electronically signed by Jarrett Sanchez MD 12/04/23 14:00:
Underweight
Original Note:
Today's Communication/Plan
-
Hold nonessential medications. Discussions with patient and family for goals of care ongoing.
Assessment / Plan
Assessment / Plan
Physical exam:
General: Acutely ill
HEENT: Normocephalic, Atraumatic and Moist Mucous Membranes
Respiratory: Clear to Auscultation; Negative Wheezes, Rales or Rhonchi
Cardiac: Regular Rhythm and S1/S2
GI: Soft, Nontender and Nondistended
Musculoskeletal: No Clubbing, No Cyanosis and No Edema
Neuro: Awake, Alert and Oriented. Increased tonicity. Resting tremors evident left upper extremity and right lower extremity.
Psych: Calm
A/P:
Impression:
Toxic metabolic encephalopathy
Parkinson's
Dementia Parkinson's related
Conditions prior to presentation:
Hyperlipidemia
Depression anxiety
Hypothyroidism
PLAN:
I had discussions again with today and he appears confused as to what to do next. He does not think home hospice will help and he does not think rehab will help. clinical engineering manager will meet to discuss discharge disposition.
In the meantime we are holding her regular medications which at this point might help anyway to give her a holiday of medications since dopaminergic agents can cause hallucinations and so on. We will later decide if to restart or not depending on
discharge disposition if she will be enrolled on hospice or not.
We can also give her a trial of Seroquel at nighttime.
She is on Ativan and morphine as needed.
CODE STATUS DNR
Total time spent on today's encounter was 52 minutes which included time spent in counseling the patient/family regarding diagnosis and treatment plan as listed above, goals of care, and symptom management. Case was discussed with nursing staff,
specialists, and care coordinators/case management. More than 50% of the time spent in counseling and coordination today.
Anticipated Discharge: > 48 hours
Subjective/Interval History
-
Date of Service: December 04, 2023
Patient alert more calm on today but some hallucinations and anxiety panic attacks on and off.
Objective Data
-
Vital Signs:
Vital Signs
Temp Pulse Resp BP Pulse Ox
98.3 F 77 18 155/71 97
12/03/23 23:05 12/03/23 23:05 12/03/23 23:05 12/03/23 23:05 12/03/23 23:05
I&O
12/03/23 12/04/23 12/05/23
06:59 06:59 06:59
Intake Total 180 / 180 240 / 240
Output Total 1000 / 1000
Balance -820 / -820 240 / 240
--- NOTE | 2023-12-04 09:02 | PN.CDI ---
CDI
- -
CDI:
Physician Documentation Request
Admit Date: 12/02/23 13:22
Dear Doctor Laura,
Patient admitted for change in mental status.
Clinical Indicators:
Height: 5' 2'
Weight:99 lbs
BMI:18.3
If possible, please provide an associated diagnosis related to the abnormal BMI, such as:
Underweight
Cachectic
Abnormal BMI is not significant
Other
BMI < or = to 19
Underweight
Weight Loss
Cachectic
Anorexia
Use of terms such as suspected, likely, concern for, or probable (associated with a specific diagnosis that is being evaluated, monitored, or treated as if it exists) are acceptable and can be coded in the inpatient setting, when documented at the
time of discharge.
Thank you,
Lakia Childers RN, BSN
CDI Specialist
Available via [facility] text
Please use your independent medical judgment in providing your response.
--- NOTE | 2023-12-04 10:13 | CM ---
Addendum entered by Fabi Frazier 12/04/23 14:59:
commercial manager spoke with patient and spouse many times. Possible discharge plans were discussed. commercial manager offered to review skilled placement however without physical therapy evaluation and recommendation unable to review skilled placement as
option. Per physical therapy patient's spouse asked physical not to evaluate patient yesterday. Patient's spouse stated that will refuse skilled placement. Referral was sent to [facility] and patient's spouse became upset with the services
that were being provided through hospice, case filler explained that families usually hire a caregiver in home along with hospice. commercial manager told patient's spouse that she had sent a referral to [facility] in case patient is discharged over
weekend, patient's spouse became upset stating that patient is not able to participate in physical therapy.
Addendum entered by Fabi Frazier 12/04/23 14:32:
Spouse is now not agreeable to skilled, referral sent to [facility] at home, in case patient returns to home.
Plan; Home with [facility] and [facility]iative care
[facility] Fax
Original Note:
commercial manager spoke with patient and received a call from patient's spouse this am complaining about the hospice benefit and lack of coverage for patients. Per patient's spouse he is not sure he will be able to manage patient at home, case filler
trial manager spoke with patient and patient reports she is doing well, Patient will need new PT/OT orders.
Plan; To see if patient would benefit from skilled placement, spouse has decided against hospice for now.
--- NOTE | 2023-12-04 10:45 | PTCARENOTE ---
Pt refusing all morning medications due at 0600 and 0800 except for eye drops. Pt's called by patient during med administration, he reports confusion as to why pt is receiving medications while on comfort care. MD made aware, orders to hold
medications. CM following as well.
--- NOTE | 2023-12-04 13:22 | HOSPNOTE ---
Very long phone call with Josesito. Patient states that he assumed that the patient would stay in the hospital until she and he states that he does not know how he will care for her at home. He reports that he has his own health issues.
This law writer attempted to explain hospice services and 24/7 availability and hospice team members however angrily interrupts frequently and contradicts himself.
is difficult to redirect back to the topic of Hospice. Patient raises his voices and curses.
Patient states that [facility] should offer euthanasia, euthanasia should be legal in [place], he is angry that it�s not legal here, yelling, he states that sick animals are treated more humanely than people, Patient states that if he
knew he would not get arrested, he would put a pillow over her face.
This law writer reported these comments to Yamile Milan, air liaison and special staff Grace, Palliative Care PRO Thomas, and Tool Designer Apprentice Josesito Quevedo. This law writer called [facility] to report these comments.
--- NOTE | 2023-12-04 14:30 | HOSPNOTE ---
Spoke with patients spouse again after receiving a text from the charge nurse stating that the spouse was escalating and yelling at staff. I called the spouse for a third time today and told him if he continues to speak to staff in that way he would
be escorted out of the hospital. I stated I have explained hospice the philosophy what is covered and what the caregiver is responsible for. I also stated that I have now spoken to you 6 times about this and explained the benefits. I also stated you
have no right to speak to anyone in this manner and we are all trying to help and make the best decisions. The attending is in agreement for the patient to stay until Thursday until there is a safe discharge in place. I told the spouse Thursday I will
assess patient and we will discharge to home on hospice if that is what is wanted. I also told the spouse if there is any further altercations who will be asked to leave immediately. Also spoke to Mattie Aiken and updated my conversation. I also
filled out a workplace violence on the [employer].
[2023-12-04] MEDS: NSS (PRESERVATIVE FREE) 0.5 ML IV (15:23)
[2023-12-04] MEDS: ATIVAN 1 MG IV (15:23)
--- NOTE | 2023-12-04 15:29 | PTCARENOTE ---
Pt with tremors in all 4 extremities and crying out 'make it stop, make it stop'. When asked what she wants to stop, pt says 'all of the noise'. Pt reported hearing voices and seeing figures earlier in the shift. PRN ativan given, see MAR. Patient
now resting comfortably in bed. MD made aware, plan of care ongoing.
[2023-12-04] MEDS: SEROQUEL PO ×2 (23:10→23:47)
[2023-12-04] MEDS: ALPHAGAN P 0.1% EYE DROPS BOTH EYES (23:10)
[2023-12-04] MEDS: ATIVAN PO ×2 (23:10→23:47)
[2023-12-04 23:15] VITALS: BP 171/77
[2023-12-05] MEDS: TYLENOL PO ×6 (01:02→22:36)
[2023-12-05] MEDS: ATIVAN 1 MG IV (03:31)
[2023-12-05 07:30] VITALS: BP 150/79
--- NOTE | 2023-12-05 07:31 | W.PN.HOSP.TC ---
Addendum entered and electronically signed by Jarrett Sanchez MD 12/05/23 12:24:
PT OT for reevaluation
Original Note:
Today's Communication/Plan
-
Continue current medications and antipsychotic. Discharge planning in progress.
Assessment / Plan
Assessment / Plan
Physical exam:
General: Acutely ill
HEENT: Normocephalic, Atraumatic and Moist Mucous Membranes
Respiratory: Clear to Auscultation; Negative Wheezes, Rales or Rhonchi
Cardiac: Regular Rhythm and S1/S2
GI: Soft, Nontender and Nondistended
Musculoskeletal: No Clubbing, No Cyanosis and No Edema
Neuro: Awake, Alert and Oriented. Increased tonicity. Resting tremors evident left upper extremity and right lower extremity.
Psych: Calm
A/P:
Impression:
Toxic metabolic encephalopathy
Parkinson's
Dementia Parkinson's related
Conditions prior to presentation:
Hyperlipidemia
Depression anxiety
Hypothyroidism
PLAN:
I had discussions again with today and he appears confused as to what to do next. He does not think home hospice will help and he does not think rehab will help. railroad emergency services manager will meet to discuss discharge disposition.
In the meantime we are holding her regular medications which at this point might help anyway to give her a holiday of medications since dopaminergic agents can cause hallucinations and so on. We will later decide if to restart or not depending on
discharge disposition if she will be enrolled on hospice or not.
We can also give her a trial of Seroquel at nighttime.
I also discussed with sister at bedside today on 12/04.
She is on Ativan and morphine as needed.
CODE STATUS DNR
Total time spent on today's encounter was 52 minutes which included time spent in counseling the patient/family regarding diagnosis and treatment plan as listed above, goals of care, and symptom management. Case was discussed with nursing staff,
specialists, and care coordinators/case management. More than 50% of the time spent in counseling and coordination today.
Anticipated Discharge: 24 - 48 hours
Subjective/Interval History
-
Date of Service: December 05, 2023
Patient is alert but disoriented. Restless at times.
Objective Data
-
Vital Signs:
Vital Signs
Temp Pulse Resp BP Pulse Ox
98.3 F 93 18 171/77 95
12/04/23 23:15 12/04/23 23:15 12/04/23 23:15 12/04/23 23:15 12/04/23 23:15
I&O
12/04/23 12/05/23 12/06/23
06:59 06:59 06:59
Intake Total 180 / 180 1380 / 1380
Output Total 1000 / 1000
Balance -820 / -820 1380 / 1380
[2023-12-05] MEDS: COLACE PO (08:24)
[2023-12-05] MEDS: ALPHAGAN P 0.1% EYE DROPS BOTH EYES ×2 (08:24→22:36)
[2023-12-05 11:14] VITALS: BP 171/81
[2023-12-05 15:45] VITALS: BP 173/76
[2023-12-05] MEDS: ATIVAN PO (22:36)
[2023-12-05] MEDS: SEROQUEL PO (22:36)
[2023-12-05 23:00] VITALS: BP 172/81
[2023-12-06] MEDS: ATIVAN 1 MG IV ×2 (00:32→20:14)
[2023-12-06] MEDS: TYLENOL PO ×7 (00:32→23:14)
[2023-12-06] MEDS: COLACE PO (09:02)
[2023-12-06] MEDS: ALPHAGAN P 0.1% EYE DROPS BOTH EYES ×2 (09:02→20:10)
--- NOTE | 2023-12-06 09:04 | W.PN.HOSP.TC ---
Today's Communication/Plan
-
Continue hold Sinemet. Seroquel if able to take. senior online marketing manager for discharge disposition.
Assessment / Plan
Assessment / Plan
Physical exam:
General: Acutely ill
HEENT: Normocephalic, Atraumatic and Moist Mucous Membranes
Respiratory: Clear to Auscultation; Negative Wheezes, Rales or Rhonchi
Cardiac: Regular Rhythm and S1/S2
GI: Soft, Nontender and Nondistended
Musculoskeletal: No Clubbing, No Cyanosis and No Edema
Neuro: Awake, Alert and Oriented. Increased tonicity. Resting tremors evident left upper extremity and right lower extremity.
Psych: Calm
A/P:
Impression:
Toxic metabolic encephalopathy
Parkinson's
Dementia Parkinson's related
Hallucinations from above and medications
Conditions prior to presentation:
Hyperlipidemia
Depression anxiety
Hypothyroidism
PLAN:
I had previous discussions with and he appears confused as to what to do next. He does not think hospice will help and he does not think rehab will help. In light of advanced Parkinson's/dementia patient appears to be a candidate for
hospice. PT OT ordered for skilled rehab eval. senior online marketing manager will meet in am to discuss with patient and family for discharge disposition. I think she would be best at facility but needs to reeval.
We are given a trial of Seroquel at nighttime but patient has not been taking it.
I also discussed with sister at bedside on 12/04. My understanding one of her son is admitted to the hospital as well.
She is on Ativan as needed.
Can resume asa/statins/thyroid meds for now.
Keep holding Sinemet since hallucinations improving (holiday of dopamine agents). Hold Mirapex and Zoloft as well.
D/C morphine since she has no needed it nor she is at a terminal stage that she requires that.
CODE STATUS DNR
Total time spent on today's encounter was 52 minutes which included time spent in counseling the patient/family regarding diagnosis and treatment plan as listed above, goals of care, and symptom management. Case was discussed with nursing staff,
specialists, and care coordinators/case management. More than 50% of the time spent in counseling and coordination today.
Anticipated Discharge: 24 - 48 hours
Subjective/Interval History
-
Date of Service: December 06, 2023
Patient more alert today. She is having conversations that makes sense with me for the first time. Afebrile today.
Objective Data
-
Vital Signs:
Vital Signs
Temp Pulse Resp BP Pulse Ox
99.6 F 96 16 172/81 96
12/05/23 23:00 12/05/23 23:00 12/05/23 23:00 12/05/23 23:00 12/05/23 23:00
I&O
12/05/23 12/06/23 12/07/23
06:59 06:59 06:59
Intake Total 1380 / 1380 250 / 250
Output Total 300 / 300
Balance 1380 / 1380 -300 / -300 250 / 250
[2023-12-06 12:04] VITALS: BP 153/77
--- NOTE | 2023-12-06 13:03 | CHAP ---
Kristyn welcomed my visit, but was confused, insisting that she had talked to me before. She grabbed at my lanyard and the beeper. Asked how she was feeling, she replied, 'You're not a nurse.' I explained that body, mind and spirit are connected.
She agreed. She insisted that I had talked with her son. I said I'd be happy to talk with him if he'd like. She welcomed prayer; we said Our Father together and I asked blessings for Kristyn and her family. Assured her Pastoral Care is always
available to her.
--- NOTE | 2023-12-06 16:31 | HOSPNOTE ---
Hospice continues to follow and be available. Latest notes reviewed and see that PT/OT reevaluation was placed for possible skilled rehab. Also noted that CM will discuss discharge plans with patient and tomorrow. Please update hospice if we
are warranted.
--- NOTE | 2023-12-06 16:52 | PTCARENOTE ---
Patient's at bedside and in hallway asking about the POC. RN explained the patient is having a much better day, was able to make her needs known appropriately, use the bedside commode with assistance, ate small amounts at meal time, and
interacted with her visitors at beside throughout the day. Therapeutic communication and education provided to the regarding PRN Ativan and Morphine. Explained to the patient's that these medications were ordered in a hospice/comfort
context (increased WOB, attempts to get OOB unassisted, etc). Nursing uses their judgement to determine if the patient has a need for these PRNs. Patient has been calm, responsive and oriented but confused at times throughout the day and exhibited
no signs of needing these medications for comfort reasons. The patient's is concerned regarding her tremors in the hands and legs while lying in bed, RN explained that this could be due to her being off of her typical Parkinson's
medications, however, at this time she is calm and comfortable, reports no pain, respirations WNL, and converses appropriately with staff and visitors. notified.
[2023-12-06] MEDS: ASPIR LOW (ENTERIC COATED) 81 MG PO (17:53)
[2023-12-06] MEDS: LIPITOR PO ×2 (17:53→17:58)
[2023-12-06] MEDS: LOVENOX SC (17:58)
[2023-12-06 19:24] VITALS: BP 178/84
[2023-12-06] MEDS: SEROQUEL PO (22:18)
[2023-12-06] MEDS: ATIVAN PO (22:18)
[2023-12-06 23:16] VITALS: BP 158/74
[2023-12-07] MEDS: ATIVAN 1 MG IV ×2 (00:37→17:06)
[2023-12-07] MEDS: TYLENOL PO ×5 (03:36→21:52)
[2023-12-07] MEDS: SYNTHROID PO (05:44)
[2023-12-07 07:30] VITALS: BP 153/69
[2023-12-07 09:54] LABS: Hematocrit 39.7 % (37.0-47.0); Hemoglobin 12.8 g/dL (12.0-16.0); Mean Corp Hgb Conc. 32.2 g/dL (33.0-37.0); Mean Corpuscular Hgb 28.3 pg (27.0-31.0); Mean Corpuscular Volume 87.8 fL (81.0-99.0); Mean Platelet Volume 9.7 fL (7.4-10.4); Platelet Count 269 10^3/uL (130-400); Red Blood Cell Count 4.52 10^6/uL (4.20-5.40); Red Cell Dist. Width 14.4 % (11.5-14.5); White Blood Cell Count 10.3 10^3/uL (4.8-10.8)
[2023-12-07] MEDS: COLACE PO (09:58)
[2023-12-07] MEDS: ALPHAGAN P 0.1% EYE DROPS BOTH EYES (09:58)
[2023-12-07 10:16] LABS: Blood Urea Nitrogen 22 mg/dl (7-17); Calcium 10.3 mg/dl (8.4-10.2); Carbon Dioxide 29 mmol/L (22-30); Chloride 101 mmol/L (98-107); Estimated Creatinine Clearance 60 ml/min; Glucose 166 mg/dl (70-99); Potassium 3.8 mmol/L (3.5-5.1); Sodium 140 mmol/L (135-145); eGFR > 60.00
--- NOTE | 2023-12-07 11:43 | CM ---
Addendum entered by Nasra Dawkins [facility] 12/07/23 17:12:
Called to tell him hospital bed measurements and he said Dr. De La Rosa told him 'she is not leaving ' and not going home. He asked what I understood from Dr. De La Rosa. explained no d/c today and since he told this CM he did not want SNF that
d/c maybe home but not today.
Went over option for medication through rectal tube but felt patient would not want that, it would be irritating to her so he did not want her to have it. CM left option to discuss further tomorrow.
Addendum entered by Nasra Dawkins [facility] 12/07/23 17:00:
Patient's son Shravan was brought over from his hospital room by staff to visit with his mother.
Addendum entered by Nasra Dawkins [facility] 12/07/23 16:48:
SPent an hour with discussing his concerns about hospice at home. He has a different belief in what 'suffering' for his is. He is concerned she will refuse home oral liquid meds and he will not give them to her if she refuses. He wants
to know if there is another alternative to oral meds on hospice. Per Fadumo De Paz from hospice she could get them via a Amanda Catheter, which is a rectal tube.
Grace also mentioned [facility] hospice does home IVs.
also wanted dimensions of hospital bed. CM called [facility] bed in 90 inches by 42 inches.
CM to provide this information in written form to .
Patient's friends in room, especially, Princess are committed to help with her care. Princess is from [facility] but plans to stay with her daughter until patient dies. Friends encouraged to offer written information on when they could stay with patient when
and if she goes home on hospice.
Original Note:
Aleyda Vu, [facility] agency on aging protective services met with patient today.
Aleyda asked to be updated on plan of care and discharge destination.
--- NOTE | 2023-12-07 14:35 | W.PN.HOSP.TC ---
Today's Communication/Plan
-
CW hospice eval and placements
Assessment / Plan
Assessment / Plan
A/P:
Impression:
Change in mental status suspected more Parkinson disease related dementia but cannot rule out toxic metabolic encephalopathy from medication. Her pramipexole was decreased and benzodiazepine dose was decreased. Neurology input noted. no
obviousSigns and symptoms of infection no major metabolic disturbances based on the labs. Refusal of medication and weight loss all concerning for dementia related issues. symptoms fluctuations in her mentation and cognition according to the
at bedside. She is somewhat oriented but again does not engage in conversation not taking her medication on oral diet.
Parkinson's -resume meds as she feels tired and achy muscle .
Dementia Parkinson's related
Hallucinations from above and medications
Conditions prior to presentation:
Hyperlipidemia
Depression anxiety
Hypothyroidism
DW at bedside at length.
progressive decline since 2019 with her Parkinson's disease. Patient has During this times expressed that she wants to be comfortable p if she were to be progressive. He does not depression has been playing any role here.
Refusal of medication and food is also concerning.
Feel that she is appropriate for hospice.
Since she is not taking any oral medication exploring right setting and options of hospice care
wants to proceed with hospice care but cant take care at home julissa if she is not taking meds.
LA NENA RN and CM
Explore options of hospice care
Total time spent on today's encounter was 52 minutes which included time spent in counseling the patient/family regarding diagnosis and treatment plan as listed above, goals of care, and symptom management. Case was discussed with nursing staff,
specialists, and care coordinators/case management. More than 50% of the time spent in counseling and coordination today.
Anticipated Discharge: Within 24 hours
Subjective/Interval History
-
Date of Service: December 07, 2023
Patient is calm and not opening much of her eyes nor
having a conversation. Better with the
conversing with him but she does not participate.
She is told that she is in [facility].
With persistent questioning , I got that she is not feeling comfortable and achy all over. She has been refusing medications and her Parkinson medicines are on hold for unknown reason She was also refusing simple Tylenol Colace and other
medication for comfort. She is not eating much or drinking much.
No behavioral disturbances or agitation. She is refusing oral meds and not taking much orally. She is able to get up and with the help of 1 person use bathroom.
Objective Data
-
Labs:
Laboratory Results
12/07/23
08:37
WBC 10.3
Hgb 12.8
Hct 39.7
Plt Count 269
Sodium 140
Potassium 3.8
Chloride 101
Carbon Dioxide 29
BUN 22 H
Creatinine 0.4 L
Glucose 166 H
Calcium 10.3 H
Vital Signs:
Vital Signs
Temp Pulse Resp BP Pulse Ox
97.9 F 73 16 153/69 97
12/07/23 07:30 12/07/23 07:30 12/07/23 07:30 12/07/23 07:30 12/07/23 07:30
I&O
12/06/23 12/07/23 12/08/23
06:59 06:59 06:59
Intake Total 250 / 250
Output Total 300 / 300
Balance -300 / -300 250 / 250
Review of Systems
-
Unable to obtain full review of systems at this time due to: Other (Not forthcoming with answers. Not conversive much.)
Physical Exam
-
General: Comfortable
Respiratory: Clear to Auscultation (anteriroly) and Non Labored Respirations; Negative Accessory Resp Muscle Use
Cardiac: Regular Rhythm, S1/S2 and Tachycardic
GI: Soft and Normal Bowel Sounds
Neuro: Awake (but not participative in conversation) and Tremors (PD); Negative Alert
Psych: Calm and Confused (hard to assess without answers to my questions)
Data Reviewed
-
Labs: Labs Reviewed by me
[2023-12-07] MEDS: MIRAPEX 0.25 MG PO ×2 (15:14→21:09)
[2023-12-07] MEDS: SINEMET 25-100 3 TABLET PO (15:15)
[2023-12-07 15:40] VITALS: BP 141/68
[2023-12-07] MEDS: NSS (PRESERVATIVE FREE) 0.5 ML IV (17:06)
[2023-12-07] MEDS: LOVENOX 40 MG SC (17:51)
[2023-12-07] MEDS: ASPIR LOW (ENTERIC COATED) 81 MG PO (17:51)
[2023-12-07] MEDS: LIPITOR PO (17:54)
[2023-12-07] MEDS: ALPHAGAN P 0.1% EYE DROPS 1 DROP BOTH EYES (21:07)
[2023-12-07] MEDS: ATIVAN 0.5 MG PO (21:08)
[2023-12-07] MEDS: TYLENOL 650 MG PO (21:08)
[2023-12-07] MEDS: SINEMET 25-100 4 TABLET PO (21:09)
[2023-12-07] MEDS: SEROQUEL 25 MG PO (21:11)
[2023-12-07 23:30] VITALS: BP 102/46
[2023-12-08] MEDS: TYLENOL PO ×4 (03:06→23:33)
[2023-12-08] MEDS: SINEMET 25-100 4 TABLET PO ×2 (06:13→21:22)
[2023-12-08] MEDS: SYNTHROID 75 MCG PO (06:14)
[2023-12-08] MEDS: MIRAPEX 0.25 MG PO ×3 (06:43→21:22)
[2023-12-08] MEDS: FLORINEF 0.100000000000000006 MG PO (06:43)
[2023-12-08] MEDS: COLACE 100 MG PO (06:43)
[2023-12-08] MEDS: ALPHAGAN P 0.1% EYE DROPS 1 DROP BOTH EYES (06:44)
[2023-12-08 08:03] VITALS: BP 125/58
[2023-12-08 11:22] VITALS: PULSE 60; O2SAT 99
[2023-12-08] MEDS: SINEMET 25-100 3 TABLET PO ×2 (12:18→17:48)
[2023-12-08] MEDS: ZOLOFT 150 MG PO (12:20)
[2023-12-08] MEDS: TYLENOL 650 MG PO ×3 (12:22→21:21)
--- NOTE | 2023-12-08 13:59 | W.PN.HOSP.TC ---
Today's Communication/Plan
-
psychiatry eval
DC planning
Assessment / Plan
Assessment / Plan
A/P:
Impression:
Change in mental status suspected more Parkinson disease related dementia but cannot rule out toxic metabolic encephalopathy from medication. Her pramipexole was decreased and benzodiazepine dose was decreased. Neurology input noted. No obvious
signs and symptoms of infection nor major metabolic disturbances based on the labs. Refusal of medication and weight loss all concerning for dementia related issues. symptoms fluctuations in her mentation and cognition according to the
at bedside. She is somewhat oriented but again does not engage in conversation not taking her medication on oral diet.
Today she is talkative and pleasant but constantly crying. I suspect some of her manifestation or major manifestation is mood related. Consult psychiatry.
Parkinson's -resumed meds which she is taking now
Dementia Parkinson's related
Hallucinations from above and medications
Conditions prior to presentation:
Hyperlipidemia
Depression anxiety
Hypothyroidism
With mood dysfunction-she should be treated for that first and then consider more end-of-life discussions.Hold on hospice.
had to escorted out of floor due to his behavior issue with staff
Anticipated Discharge: 24 - 48 hours
Subjective/Interval History
-
Date of Service: December 08, 2023
She is much improved today-patient conversive but constantly crying. According to the friend at bedside who knows her 40 years this is a change in her behavior. She has been constantly crying all day.
Denies headache, visual disturbances, limb weakness or sensory symptoms. She does not think she had a stroke. She tells me she follows with Dr. Recio and also Dr. Ferreira ,she had 2 MRIs in the past of the brain which did not show stroke. She
cannot tolerate the noise in the MRI machine.
She is alert and oriented to place, person, day, month and year. had a immediate recall was 2 out of 3 today.
Objective Data
-
Vital Signs:
Vital Signs
Temp Pulse Resp BP Pulse Ox
97.4 F 60 16 125/58 97
12/08/23 08:03 12/08/23 08:03 12/08/23 08:03 12/08/23 08:03 12/08/23 08:03
I&O
12/07/23 12/08/23 12/09/23
06:59 06:59 06:59
Intake Total 250 / 250 240 / 240
Balance 250 / 250 240 / 240
Review of Systems
-
Respiratory: Denies Trouble Breathing
Cardiac: Denies Chest Pain
Abdomen/GI: Denies Nausea or Vomiting
Neuro: Denies Dizzy
Physical Exam
-
General: No Apparent Distress
HEENT: Moist Mucous Membranes
Respiratory: Non Labored Respirations; Negative Accessory Resp Muscle Use
Cardiac: Regular Rhythm and S1/S2
GI: Soft
Neuro: AO x 3 and No Motor Deficits; Negative Tremors (TODAY), Slurred Speech or Facial Droop
Psych: Calm and Anxious (CRYING); Negative Confused or Agitated
Data Reviewed
-
Labs: Labs Reviewed by me
--- NOTE | 2023-12-08 14:28 | PN.CDI ---
CDI
- -
CDI:
Physician Documentation Request
Admit Date: 12/02/23 13:22
Dear Doctor Rj,
Patent admitted for change in mental status.
12/06 Hospitalist PN: 'She is not eating much or drinking much.'
12/06 Chaplaincy Assessment: 'Review of records shows weight of 117 lbs 11.2 oz from 09-25-23; 99 lbs 13.91 oz from 12-02-23. Pt appears to have lost 18 lbs (15.3% wt change, < 3 months)- significant....RD able to observe appearance of
moderate depression at temples, orbital, clavicle, visible ribs. With weight loss as noted and fat/muscle loss observed, pt currrently meeting criteria for severe protein/ calorie malnutrition ( ASPEN/AND guidelines, chronic illness).
Based on the above information and your assessment, which of the following most accurately represents the patient's nutritional status?
Severe protein calorie malnutrition
Other
Burgess Criteria (ACP Hospitalist 2017)
2 or more criteria must be present for either
non severe or severe malnutrition
Note that the criteria differs related to the
presence of an acute or chronic illness
Acute Illness Chronic Illness
Energy Intake Non Severe: <75% for >7 days Non Severe: <75% for >1 month
Severe: <50% for >5 days Severe: <75% for >1 month
Weight Loss Non Severe: 1-2% over 1 week Non Severe: 5% over 1 month
5% over 1 month 7.5% over 3 months
7.5% over 3 months 10% over 6 months
1 year N/A 20% over 1 year
Severe: >2% over 1 week Severe: >5% over 1 month
>5% over 1 month >7.5% over 3 months
>7.5% over 3 months >10% over 6 months
1 year N/A >20% over 1 year
Body Fat Non Severe: Mild Decrease Non Severe: Mild Loss
Severe: Moderate Decrease Severe: Severe Loss
Muscle Mass Non Severe: Mild Decrease Non Severe: Mild Loss
Severe: Moderate Decrease Severe: Severe Loss
Fluid Accumulation Non Severe: Mild Accumulation Non Severe: Mild Accumulation
Severe: Moderate to severe Severe: Moderate to severe
accumulation accumulation
Reduced Clinical Medical Transcriptionist Strength Non Severe: N/A Non Severe: N/A
Severe: Measurably reduced Severe: Measurably reduced
Additional criteria that can be used to Determine if Mild or Moderate Malnutrition (Merck Manual 2018)
Mild Moderate Severe
Albumin gm/dl <3.0 gm/dl <2.5 gm/dl <2.0 gm/dl
Pre Albumin mg/dl <15 gm/dl <10 mg/dl <5.0 mg/dl
BMI <18.5 <17 <16
Use of terms such as suspected, likely, concern for, or probable (associated with a specific diagnosis that is being evaluated, monitored, or treated as if it exists) are acceptable and can be coded in the inpatient setting, when documented at the
time of discharge.
Thank you,
Lakia Childers RN, BSN
CDI Specialist
Available via [facility] text
Please use your independent medical judgment in providing your response.
--- NOTE | 2023-12-08 14:47 | CM ---
Addendum entered by ANGELINE Beltrán 12/08/23 14:52:
TT sent to Fadumo at hospice that possibly plan will be home with PAVAN from Palliative team at .
Original Note:
Chart reviewed, spoke to RN , patient with friend in room and to Tony her spouse. Tony is perplexed as patient is now eating, taking oral meds. Discussed possibility of going home with PAVAN from palliative care. He says tells him and her
friend Phoebe there is something preventing her from moving on. SOmething she needs to deal with. Tony hopes she will reveal this to psychiatrist or staff at . He is still going to take measurements home for hospital bed and see if one fits in
the space he wants it to go. He is leaving for day as he has an appointment. He asks that psychiatrist who is going to evaluate patient call him or the attending once psychiatry sees patient.
Patient is walking with supervision to and from bathroom.
CM to follow for discharge needs.
--- NOTE | 2023-12-08 16:25 | CS.PSYCHR ---
Consult Summary - Psychiatry
-
Pt is 73 yo female with history of Parkinson's dz, who presented with gradual cognitive decline and recent increase in confusion. Pt noted with poor po intake, not taking medications. Pt seen with granddtr present, initially tearful. Pt is a poor
historian, not able to explain her medication refusals. Pt increasingly suspicious during the interview, asking me to verify who I am, looking at my ID tag, asked to see my license, not able to be reassured. Pt also states she has seen her dtr and
other family members in the hallway, although they have not reportedly been there. Pt oriented to the facility, day of week and month. She is not able to say if Seroquel helped her sleep last night. No signs of EPS or sedation this afternoon. Pt
dysphoric and endorses passive thoughts of dying, denies active SI.
PMH: Hyperlipidemia, hypothyroidism, Parkinson's disease, dementia, breast cancer, osteopenia. Pt reports her Neurologist is Dr Recio
Psych hx: unable to obtain. Pt is prescribed Sertraline 150 mg daily, Ativan 0.5 mg HS by PCP.
MSE: alert oriented to self, day of week and month, sitting upright in bed. Affect dysphoric, mood somewhat depressed. Speech coherent, thought perseverative, with suspicious content. No agitation, no overt signs of psychosis/no hallucinations
evident. Insight appears limited
Imp: Unspecified depressive d/o, r/o psychosis, in setting of Parkinson's dz and parkinson's medications- typically a complex condition
Parkinson's dz-related cognitive impairment/ Dementia
Rec: continue Sertraline and encourage consistent adherence, which may allow the dose to be tapered
Will follow loosely
[2023-12-08] MEDS: ASPIR LOW (ENTERIC COATED) 81 MG PO (17:47)
[2023-12-08] MEDS: LIPITOR 80 MG PO (17:48)
[2023-12-08] MEDS: LOVENOX 40 MG SC (17:48)
[2023-12-08] MEDS: ALPHAGAN P 0.1% EYE DROPS BOTH EYES (21:21)
[2023-12-08] MEDS: ATIVAN 0.5 MG PO (21:22)
[2023-12-08] MEDS: SEROQUEL 25 MG PO (21:22)
[2023-12-08 23:35] VITALS: BP 108/58
[2023-12-09] MEDS: TYLENOL PO ×6 (03:31→22:23)
[2023-12-09] MEDS: SINEMET 25-100 PO ×4 (05:29→23:14)
[2023-12-09] MEDS: SYNTHROID PO (05:29)
[2023-12-09 08:11] VITALS: BP 165/76
[2023-12-09] MEDS: MIRAPEX PO ×4 (09:05→23:14)
[2023-12-09] MEDS: ALPHAGAN P 0.1% EYE DROPS BOTH EYES ×3 (09:05→22:23)
[2023-12-09] MEDS: COLACE PO ×2 (09:06→09:24)
[2023-12-09] MEDS: FLORINEF PO ×2 (09:06→09:24)
--- NOTE | 2023-12-09 10:54 | CM ---
Addendum entered by Aure De Paz 12/09/23 14:24:
CM spoke with Aleyda Vu [phone]; from [facility] , update provided and she will be following case and reaching out to talk to patient . Please call Aleyda with updates at discharge.
Original Note:
Patient seen at bedside, CM spoke with nurse and physician. Patient spoke with CM via phone. Patient accused CM of attempting to drain his bank account when discussing options of SNF. Patient asked to talk to physician and
CM updated him that physician was aware and would call him, pending PT/OT assessment requested for today. Patient distraught about level of distress that he feels patient is enduring. CM attempted to provide supports. CM will continue to
follow for discharge planning needs.
Plan; home with palliative care vs SNF
[2023-12-09 11:28] VITALS: BP 98/73; O2SAT 97
[2023-12-09] MEDS: ZOLOFT PO (12:09)
--- NOTE | 2023-12-09 13:08 | W.PN.HOSP.TC ---
Today's Communication/Plan
-
Follow psychiatry recommendations
Follow PT eval
DC planning
Assessment / Plan
Assessment / Plan
A/P:
Impression:
Change in mental status suspected more Parkinson disease related dementia but cannot rule out toxic metabolic encephalopathy from medication. Her pramipexole was decreased and benzodiazepine dose was decreased. Neurology input noted. No obvious
signs and symptoms of infection nor major metabolic disturbances based on the labs. Refusal of medication and weight loss all concerning for dementia related issues. symptoms fluctuations in her mentation and cognition according to the
at bedside.
Yesterday she is talkative and pleasant but constantly crying. she recommended patient today she did not take any medication or eating. She seems to be paranoid. She has a delusion ongoing. Appreciate psychiatry input. They see depression
present ; rule out psychosis.
Parkinson's -resumed meds
Dementia Parkinson's related
Hallucinations from above and medications
Conditions prior to presentation:
Hyperlipidemia
Depression anxiety
Hypothyroidism
No diagnosis for hospice obvious
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
She need help with her mood and thought dysfunction.
Will discuss with psychiatry re: safety of dc home from psych standpoint.
Follow PT eval and if ok from will dc home today
Anticipated Discharge: Within 24 hours
Subjective/Interval History
-
Date of Service: December 09, 2023
Patient today did not take medication again. She was also not eating much.
She remembers talking to me from yesterday. She thinks her family members are in the hallway which is not true . She hears a man talking on his cell phone in the [place] and she thinks he may be talking about her.
She suspiciously looks around the room when no one is present.
Objective Data
-
Vital Signs:
Vital Signs
Temp Pulse Resp BP Pulse Ox
97.6 F 79 20 165/76 97
12/09/23 08:11 12/09/23 08:11 12/09/23 08:11 12/09/23 08:11 12/09/23 08:11
I&O
12/08/23 12/09/23 12/10/23
06:59 06:59 06:59
Intake Total 240 / 240 960 / 960
Balance 240 / 240 960 / 960
Review of Systems
-
Unable to obtain full review of systems at this time due to: Other (Difficult as she is tangential in her answers today)
Respiratory: Denies Trouble Breathing
Cardiac: Denies Chest Pain
Abdomen/GI: Denies Abdominal Pain, Nausea or Vomiting
Neuro: Denies Dizzy or Headache
Physical Exam
-
General: No Apparent Distress
Respiratory: Non Labored Respirations; Negative Accessory Resp Muscle Use
Cardiac: Regular Rhythm and S1/S2
GI: Soft
Neuro: Awake, Alert, AO x 3 and No Motor Deficits; Negative Tremors, Slurred Speech or Facial Droop
Psych: Calm and Confused; Negative Agitated
--- NOTE | 2023-12-09 15:02 | W.PN.UPDATE ---
Update Note
Progress Note Update
patient seen chart reviewed. spoke with dr beltran, ms ceballos, hospital supervisor plate forming, and nursing. the patient was lying in bed and not exactly rousable. i tried to wake her and engage her without success. i spoke at length with patient's . he is
very angry and upset about his 's condition and feels that little attention is being paid to his and her wishes. that she be allowed to seems to be his wish and he believes would be her wish if she could articulate it. dr beltran's concern
seemed to me to be that she is suffering from depression and possibly psychosis ( dr tejada too noted she seemed paranoid) and if these could be treated she might choose to live. it was impossible for me to render an opinion on this subject given
the condition in which i found her today. mr chanel seems to feel that his conversation with dr murphy supported his view that hospice would be appropriate for her. i did present the point of view that more seroquel could be helpful...she is
taking 25 mg q hs ...but he said he thought she took that in the past and it made her pd worse. he said dr murphy might have the records to support or refute this and i should check w him which i will do (sent tiger text.) for now will dc seroquel
and use ativan prn sleep. i contacted dr beltran to let him know that mr chanel was wanting to talk w him again. i also tiger texted ms hung hospice nurse to discuss. my opinion is that hospice is likely appropriate given that the prospect of
improvement for patient with emt intermediate pd (since 2019) who may have underlying dementia and psychosis is not good and if it is true that it would be her desire to refuse further rx as he asserts, then it would not be inappropriate.
[2023-12-09 15:46] VITALS: BP 156/74
--- NOTE | 2023-12-09 16:11 | PTCARENOTE ---
Patient refusing medications throughout shift. This RN explained the rationale for each medication several times and assured the pt that she has taken them here and at home. Pt acknowledges this, but she says 'how can I trust you're telling me the
truth'. Despite reassurance, patient unwilling to take medications. aware, refusal documented in AUG.
[2023-12-09] MEDS: LIPITOR PO (17:21)
[2023-12-09] MEDS: LOVENOX SC (17:21)
[2023-12-09] MEDS: ASPIR LOW (ENTERIC COATED) PO (17:21)
[2023-12-09] MEDS: ATIVAN PO (22:45)
[2023-12-09 23:20] VITALS: BP 162/73
[2023-12-10] MEDS: TYLENOL PO ×7 (00:24→23:42)
[2023-12-10] MEDS: SINEMET 25-100 PO ×4 (06:01→21:25)
[2023-12-10] MEDS: SYNTHROID PO (06:02)
[2023-12-10 07:45] VITALS: BP 137/102
[2023-12-10] MEDS: ALPHAGAN P 0.1% EYE DROPS 1 DROP BOTH EYES (08:45)
[2023-12-10] MEDS: COLACE PO (08:46)
[2023-12-10] MEDS: MIRAPEX PO ×3 (08:46→21:25)
[2023-12-10] MEDS: FLORINEF PO (08:46)
--- NOTE | 2023-12-10 09:28 | CM ---
Addendum entered by Aure De Paz 12/10/23 15:54:
CM updated Aparna from [facility] regarding plan for discharge tomorrow
Addendum entered by Aure De Paz 12/10/23 14:45:
Chris Rosio from [facility] hospice updated with plan for discharge and attending information. CM completed med nec.
Addendum entered by Aure De Paz 12/10/23 13:52:
[facility] pharmacy sales representative and the [facility] representatives both here to see patient. Patient requested that DME be faxed to [facility] and fax to [facility] for hospice at facility. plan for transfer tomorrow am at 10am. Physician aware
Facility is requesting hard copy scripts and CM will complete med necessity form for transfer. CM will also provide out of hospital DNR for physician. CM will continue to follow for discharge planning needs.
Addendum entered by Aure De Paz 12/10/23 12:12:
Patient now asking for clinical information to be sent to [facility] and [facility]. CM awaiting DME form to complete with physician. Both facilities are coming to see patient today. Most likely patient if accepted would go
tomorrow. CM will continue to follow for discharge planning.
Original Note:
Following long discussion yesterday afternoon with patient and Brother in law of patient. TARYN sent referrals to [facility], [facility], [facility], [facility] and [facility]. TARYN spoke with Barbie Schulz and she is calling patient to review options
for personal care. TARYN spoke with patient this am and updated him that [facility], did not accept. [facility], [facility] and [facility] have accepted. TARYN just spoke with [facility] and [facility] both have simply stated they were not able to offer
a bed. CM called to update patient .
Plan continues to be for SNF for [facility] and then Personal care for hospice if needed.
[2023-12-10] MEDS: ZOLOFT PO (11:13)
--- NOTE | 2023-12-10 13:05 | W.PN.UPDATE ---
Update Note
Progress Note Update
patient seen chart reviewed. spoke with nursing. the patient has continued to refuse medication and you could see that her PD is worse as tremors were accentuated as well as stiffness. she did not respond to my efforts to talk to her but kept
clutching at blanket and pulling at it. i thought she might be cold and tried to move it back to cover her arms but she pulled it away. spoke witn hospice nurse ms drummond, dr beltran and with watch caser ms ceballos. she has tentatively been accepted [facility]
two facilities and details are being addressed. in my opinion hospice is not in appropriate here. ms orojordana is reviewing the chart and can offer her observations re this issue.
--- NOTE | 2023-12-10 13:08 | W.PN.HOSP.TC ---
Addendum entered and electronically signed by Tio De La Rosa MD 12/10/23 13:31:
'Review of records shows weight of 117 lbs 11.2 oz from 09-25-23; 99 lbs 13.91 oz from 12-02-23. Pt appears to have lost 18 lbs (15.3% wt change, < 3 months)- significant....RD able to observe appearance of moderate depression at temples, orbital,
clavicle, visible ribs. With weight loss as noted and fat/muscle loss observed, pt currrently meeting criteria for severe protein/ calorie malnutrition
BMI 18.3 suggestive of malnutrition
Original Note:
Today's Communication/Plan
-
DC to personal care when bed available
Assessment / Plan
Assessment / Plan
A/P:
Impression:
Change in mental status suspected more Parkinson disease related dementia but cannot rule out toxic metabolic encephalopathy from medication. Her pramipexole was decreased and benzodiazepine dose was decreased. Neurology input noted. No obvious
signs and symptoms of infection nor major metabolic disturbances based on the labs. Refusal of medication and weight loss all concerning for dementia related issues. symptoms fluctuations in her mentation and cognition according to the
at bedside.
Patient continues to fluctuate with her behavior-not taking medications again and not eating much.
Psychiatry input noted.
It is all felt that this is a behavioral issue from her Parkinson's disease related dementia and she is going to continue to progress to us.
Patient's wishes were clear that he wanted her to be comfortable.
Discussed with case management who is working at a personal care facility where she can be transitioned to hospice if this progression continues from clinical standpoint.
Parkinson's -resumed meds
Dementia Parkinson's related
Hallucinations from above and medications
Conditions prior to presentation:
Hyperlipidemia
Depression anxiety
Hypothyroidism
DW CM
DW Psychiatry
DW
Total time spent on today's encounter was 52 minutes which included time spent in counseling the patient/family regarding diagnosis and treatment plan as listed above, goals of care, and symptom management. Case was discussed with nursing staff,
specialists, and care coordinators/case management. All labs and imaging personally reviewed by me. Remainder the time spent in detailed review of previous records, lab data, imaging, and other medical provider documentation.
Anticipated Discharge: Today
Subjective/Interval History
-
Date of Service: December 10, 2023
Patient today not conversive. She has not taken her meds noR she has took much orally. She looks weak.
She does not open her eyes. When touched on the shoulder she rubs my hand away.
Objective Data
-
Vital Signs:
Vital Signs
Temp Pulse Resp BP Pulse Ox
98.3 F 93 21 137/102 97
12/10/23 07:45 12/10/23 07:45 12/10/23 07:45 12/10/23 07:45 12/10/23 07:45
I&O
12/09/23 12/10/23 12/11/23
06:59 06:59 06:59
Intake Total 960 / 960 400 / 400
Balance 960 / 960 400 / 400
Review of Systems
-
Unable to obtain full review of systems at this time due to: Other (due to non cooperativeness by pt)
Physical Exam
-
General: Comfortable
Respiratory: Non Labored Respirations; Negative Accessory Resp Muscle Use
Neuro: Awake; Negative Alert
Psych: Calm
--- NOTE | 2023-12-10 13:55 | HOSPNOTE ---
Spoke to case management regarding patient. Hospice is not warranted at this time. Hospice will remain available if warranted. Please reach out if hospice is warranted. Thank you.
[2023-12-10] MEDS: ASPIR LOW (ENTERIC COATED) PO (17:05)
[2023-12-10] MEDS: LOVENOX SC (17:05)
[2023-12-10] MEDS: LIPITOR PO (17:05)
[2023-12-10 17:32] VITALS: BP 162/68
[2023-12-10] MEDS: ALPHAGAN P 0.1% EYE DROPS BOTH EYES (21:11)
[2023-12-10] MEDS: ATIVAN PO (21:18)
[2023-12-10 23:10] VITALS: BP 155/70
[2023-12-11] MEDS: TYLENOL PO (03:58)
[2023-12-11] MEDS: SINEMET 25-100 4 TABLET PO (05:26)
[2023-12-11] MEDS: SYNTHROID PO (05:31)
[2023-12-11 07:30] VITALS: BP 148/71
[2023-12-11] MEDS: ALPHAGAN P 0.1% EYE DROPS 2 DROP BOTH EYES (08:05)
[2023-12-11] MEDS: COLACE 100 MG PO (08:07)
[2023-12-11] MEDS: MIRAPEX 0.25 MG PO (08:07)
[2023-12-11] MEDS: FLORINEF 0.100000000000000006 MG PO (08:07)
[2023-12-11] MEDS: TYLENOL 650 MG PO (08:08)
--- NOTE | 2023-12-11 09:22 | W.DS.TRANS ---
DC Summary - Size Maker
-
Discharge Instructions:
Discharge Diagnosis/Procedures Change in mental status suspected more Parkinson
disease related dementia
Diet Regular
Activity As tolerated
Driving Restrictions No driving
Instructions:
Stand-Alone Forms:
Changes to Home Medications: Yes
Discharge Medications:
DC Medications w/original date entered in [facility]
aspirin 81 mg tablet,delayed release 81 mg PO QPM Blood Clot Prevention/Tx #30 tabs 12/11/23
atorvastatin 80 mg tablet 80 mg PO QPM High Cholesterol #30 tabs 12/11/23
brimonidine 0.1 % eye drops 1 drp BOTH EYES BID Eye Condition #5 mL 12/11/23
carbidopa ER 25 mg-levodopa 100 mg tablet,extended release 3 tab PO BID@1100,1630 PARKINSON #180 tabs 12/11/23
carbidopa ER 25 mg-levodopa 100 mg tablet,extended release 4 tab PO BID@0600,2200 parkinson's disease #240 tabs 12/11/23
cholecalciferol (vitamin D3) 50 mcg (2,000 unit) tablet (Vitamin D3) 50 mcg PO Q48H@1800 Supplement #30 tabs 12/11/23
docusate sodium 100 mg capsule (Colace) 100 mg PO DAILY Constipation #30 caps 12/11/23
fludrocortisone 0.1 mg tablet 0.1 mg PO DAILY #30 tabs 12/11/23
levothyroxine 75 mcg tablet 75 mcg PO MOTUWETHFRSA@0600 Thyroid #30 tabs 12/11/23
lorazepam 0.5 mg tablet 0.5 mg PO BIDPRN PRN anxiety #20 tabs 12/11/23
lorazepam 0.5 mg tablet 0.5 mg PO HS #15 tabs 12/11/23
loteprednol etabonate 0.5 % eye gel drops (Lotemax) 1 drp BOTH EYES BID Eye Condition #5 grams 12/11/23
midodrine 2.5 mg tablet 2.5 mg PO DAILYPRN PRN low blood pressure #30 tabs 12/11/23
polyethylene glycol 3350 17 gram oral powder packet (HealthyLax) 17 g PO DAILYPRN PRN constipation #30 ea 12/11/23
pramipexole 0.25 mg tablet 0.25 mg PO TID #90 tabs 12/11/23
sennosides 8.6 mg-docusate sodium 50 mg tablet (Stool Softener-Stimulant Laxative) 1 tab PO BIDPRN PRN constipation #60 tabs 12/11/23
sertraline 50 mg tablet 150 mg (3 x 50 mg) PO DAILY@1100 Mental Health/Anxiety #30 tabs 12/11/23
trazodone 50 mg tablet 25 mg (1/2 x 50 mg) PO HS #30 tabs 12/11/23
Home Medication Changes
New medication -senna,trazodone,miralax,colace
Change in medication - decreased dose of mirapex
Pending Results: No
--- NOTE | 2023-12-11 09:35 | CM ---
Patient seen at bedside. Patient for transfer today to [facility] at 10:00 package pick up. Hospice nurse from [facility] updated as well as [facility] admissions. CM called and confirmed with patient update. CM will continue to follow for discharge planning
needs.
Plan; [facility] and [facility] hospice
ever call report to [phone]/ fax [phone]
--- NOTE | 2023-12-11 12:35 | W.PN.HOSP.TC ---
Addendum entered and electronically signed by Tio De La Rosa MD 12/13/23 13:59:
Review of records shows weight of 117 lbs 11.2 oz from 09-25-23; 99 lbs 13.91 oz from 12-02-23. Pt appears to have lost 18 lbs (15.3% wt change, < 3 months)- significant....RD able to observe appearance of moderate depression at temples, orbital,
clavicle, visible ribs. With weight loss as noted and fat/muscle loss observed, pt currrently meeting criteria for severe protein/ calorie malnutrition ( ASPEN/AND guidelines, chronic illness).
Original Note:
Today's Communication/Plan
-
DC
Assessment / Plan
Assessment / Plan
A/P:
Impression:
Change in mental status suspected more Parkinson disease related dementia but cannot rule out toxic metabolic encephalopathy from medication. Her pramipexole was decreased and benzodiazepine dose was decreased. Neurology input noted. No obvious
signs and symptoms of infection nor major metabolic disturbances based on the labs. Refusal of medication and weight loss all concerning for dementia related issues. symptoms fluctuations in her mentation and cognition according to the
at bedside.
Patient continues to fluctuate with her behavior-not taking medications again and not eating much.
Psychiatry input noted.
It is all felt that this is a behavioral issue from her Parkinson's disease related dementia and she is going to continue to progress to us and appropriate for hospice.
Patient's wishes were clear that he wanted her to be comfortable.
Discussed with case management 12/09 who is working at a personal care facility where she can be transitioned to hospice if this progression continues from clinical standpoint.
Parkinson's -resumed meds
Dementia Parkinson's related
Hallucinations from above and medications
Conditions prior to presentation:
Hyperlipidemia
Depression anxiety
Hypothyroidism
DW CM
As planned yesterday dc to personal care facility transitioning in to hospice depending on her course.
Total time of dc 35 min
Anticipated Discharge: Today
Subjective/Interval History
-
Date of Service: December 11, 2023
Patient keeps mum and doesnt answer any of my questions. Eyes open. She did not take much to eat but she took a medication.
Objective Data
-
Vital Signs:
Vital Signs
Temp Pulse Resp BP Pulse Ox
97.9 F 77 18 148/71 97
12/11/23 07:30 12/11/23 07:30 12/11/23 07:30 12/11/23 07:30 12/11/23 07:30
I&O
12/10/23 12/11/23 12/12/23
06:59 06:59 06:59
Intake Total 400 / 400 0 / 0
Output Total 1230 / 1230
Balance 400 / 400 -1230 / -1230
Review of Systems
-
Unable to obtain full review of systems at this time due to: Other (due to non cooperativeness)
Physical Exam
-
General: Comfortable; Negative No Apparent Distress
Respiratory: Non Labored Respirations; Negative Accessory Resp Muscle Use
Neuro: Awake and Alert
Psych: Calm; Negative Agitated
--- NOTE | 2023-12-11 17:17 | W.DCSUMMARY ---
Discharge Summary
Discharge Data
Date of Admission: 12/02/23
Date of Discharge: 12/11/23
-
Pending Results: No
Hospital Course
primary diagnosis:
Change in mental status suspected secondary to behavioral issues from her Parkinson disease related dementia
Secondary diagnosis:
Hyperlipidemia
Depression anxiety
Hypothyroidism
Hospital course:
Patient is 73 years old female history of Parkinson's, hyperlipidemia, presented to the hospital mental status changes. Patient has been more confused over the last several days and family has requested to come to the hospital patient has refused.
Patient has declined in cognitive and memory issues over the last several months. In terms of any recent changes, pramipexole was the only change in terms of dosing.She has some behavioral alterations on and off. She had some weight loss.
she has been refusing to take some medications and patient's had wanted her to come to the ER earlier but she had refused to do this. Here in the hospital she has refused her medication most of the times that she was taking once in a
while. She was also not consistent with oral intake. Had refused the medication and oral diet was all related to her behavior issue. With poor oral intake she was also losing weight.
Initially there was a thought that the increased dose of the Mirapex may have played a role. she had a CT head which showed no evidence of acute stroke. She was seen by neurology who felt there was no evidence of acute stroke and felt may be
medications causing her situation. Mirapex dose was decreased and her Sinemet dose was also decreased.
there was no evidence of obvious metabolic disturbance or concerns of infection.
She was seen also by psychiatrist as there was a concern about mood dysfunction and it was felt may be all her clinical picture is related to her behavioral disturbances from her Parkinson's related dementia.
With the decline in cognitive, functional and nutritional from her Parkinson's disease related dementia, vani wanted her to be comfortable and was transition to a personal care setting and she would be transition into inpatient hospice if she
continues to not take medications or nutrition.
Consultants on board:
Neurology-Alexander Hall
Psychiatry-Katheryn Head
Discharge Plan
-
Patient Disposition: Correction/SNF
Discharge Diagnosis/Procedures: Change in mental status suspected more Parkinson disease related dementia
Condition: Serious
Diet: Regular
Activity: As tolerated
Driving Restrictions: No driving
Other Services: Hospice
Referrals:
Israel Hairston MD [Family Provider] -
Prescriptions:
New
trazodone 50 mg Tablet
25 mg PO HS Qty: 30 0RF
polyethylene glycol 3350 [HealthyLax] 17 gram Powder In Packet
17 g PO DAILYPRN PRN (Reason: constipation) Qty: 30 0RF
sennosides-docusate sodium [Stool Softener-Stimulant Laxat] 8.6-50 mg Tablet
1 tab PO BIDPRN PRN (Reason: constipation) Qty: 60 0RF
pramipexole 0.25 mg Tablet
0.25 mg PO TID Qty: 90 0RF
Continued
atorvastatin 80 mg tablet
80 mg PO QPM Qty: 30 0RF
aspirin 81 mg Tablet,Delayed Release (Dr/Ec)
81 mg PO QPM Qty: 30 0RF
levothyroxine 75 mcg tablet
75 mcg PO MOTUWETHFRSA@0600 Qty: 30 0RF
lorazepam 0.5 mg Tablet
0.5 mg PO BIDPRN PRN (Reason: anxiety) Qty: 20 0RF
docusate sodium [Colace] 100 mg Capsule
100 mg PO DAILY Qty: 30 0RF
midodrine 2.5 mg tablet
2.5 mg PO DAILYPRN PRN (Reason: low blood pressure) Qty: 30 0RF
sertraline 50 mg Tablet
150 mg PO DAILY@1100 Qty: 30 0RF
brimonidine 0.1 % Drops
1 drp BOTH EYES BID Qty: 5 0RF
cholecalciferol (vitamin D3) [Vitamin D3] 50 mcg (2,000 unit) Tablet
50 mcg PO Q48H@1800 Qty: 30 0RF
Rx Instructions:
1 tab taken on odd days, 2 tabs on even days.
loteprednol etabonate [Lotemax] 0.5 % Drops,Gel
1 drp BOTH EYES BID Qty: 5 0RF
carbidopa-levodopa 25-100 mg tablet extended release
4 tab PO BID@0600,2200 Qty: 240 0RF
carbidopa-levodopa 25-100 mg Tablet Extended Release
3 tab PO BID@1100,1630 Qty: 180 0RF
lorazepam 0.5 mg Tablet
0.5 mg PO HS Qty: 15 0RF
Changed
fludrocortisone 0.1 mg tablet
0.1 mg PO DAILY Qty: 30 0RF
Discontinued
cholecalciferol (vitamin D3) [Vitamin D3] 50 mcg (2,000 unit) Tablet
100 mcg PO Q48H@1800
Rx Instructions:
1 tab taken on odd days, 2 tabs on even days.
pramipexole 0.25 mg Tablet
0.5 mg PO BID
ondansetron HCl 4 mg Tablet
4 mg PO Q8HPRN PRN (Reason: nausea)
Discharge Orders:
Discharge Patient (As Directed); Ordered 12/11/23
Ordered By: Tio De La Rosa
Discharge Date and Time
Discharge Date/Time: 12/11/23 10:30
Print Language: BHUTANESE
== END 2023-12-11 10:30 | DRG 91 ==
LOC: 4 WEST ACU 13:22
PROVIDERS: ADMITTING PHYSICIAN Hospitalist; ATTENDING PHYSICIAN Internal Medicine; CONSULT PHYSICIAN Psychiatry & Neurology Psychiatry; CONSULT PHYSICIAN Student in an Organized Health Care Education/Training Program; EMERGENCY PHYSICIAN Emergency Medicine; FAMILY PHYSICIAN Family Medicine
DX: G92.8 Other toxic encephalopathy (principal); E43 Unspecified severe protein-calorie malnutrition; F02.818 Dementia in other diseases classified elsewhere, unspecified severity, with other behavioral disturbance; F02.83 Dementia in other diseases classified elsewhere, unspecified severity, with mood disturbance; R44.3 Hallucinations, unspecified; Z68.1 Body mass index [BMI] 19.9 or less, adult; G20.A1 Parkinson's disease without dyskinesia, without mention of fluctuations; F32.A Depression, unspecified; E03.9 Hypothyroidism, unspecified; E78.49 Other hyperlipidemia; R62.7 Adult failure to thrive
CPT/HCPCS: 70450; 80048; 80053; 81003; 81015; 85025; 85027; 87086; 96361; 96374; 97163; 97167; 97530; 97535; 99285

== ENCOUNTER 2024-10-13 22:51 | Observation (INO) | payer MEDICARE, OTHER, SELFPAY ==
[2024-10-13 16:19] VITALS: BP 183/84
[2024-10-13 16:38] LABS: % Basophils 0.2 % (0-2); % Eosinophils 0.2 % (0-6); % Immature Granulocytes 0.5 % (0-0.5); % Lymphocytes 13.3 % (20.5-51.1); % Neutrophils 78.8 % (42.2-75.2); Absolute Lymphocytes 0.8 10^3/uL (1.2-3.4); Absolute Monocytes 0.4 10^3/uL (0.1-0.6); Hematocrit 34.3 % (37.0-47.0); Hemoglobin 11.2 g/dL (12.0-16.0); Mean Corp Hgb Conc. 32.7 g/dL (33.0-37.0); Mean Corpuscular Volume 88.9 fL (81.0-99.0); Mean Platelet Volume 9.1 fL (7.4-10.4); Nucleated Red Blood Cells % 0 %; Platelet Count 237 10^3/uL (130-400); Red Blood Cell Count 3.86 10^6/uL (4.20-5.40); Red Cell Dist. Width 13.5 % (11.5-14.5); White Blood Cell Count 6.3 10^3/uL (4.8-10.8)
[2024-10-13 17:00] LABS: ALT (SGPT) < 10 U/L (0-35); AST (SGOT) 16 U/L (14-36); Albumin 4.7 g/dl (3.5-5.0); Alkaline Phosphatase 85 U/L (38-126); Blood Urea Nitrogen 18 mg/dl (7-17); Calcium 9.4 mg/dl (8.4-10.2); Carbon Dioxide 29 mmol/L (22-30); Chloride 102 mmol/L (98-107); Glucose 121 mg/dl (70-99); Potassium 4.4 mmol/L (3.5-5.1); Sodium 140 mmol/L (135-145); Total Bilirubin 0.7 mg/dl (0.2-1.3); Total Protein 7.1 g/dl (6.3-8.2); eGFR > 60.00
[2024-10-13 17:21] LABS: Troponin I < 0.012 ng/ml
[2024-10-13 19:50] LABS: Urine Albumin Negative (Neg - Trace); Urine Bilirubin Negative (Negative); Urine Character Clear (Clear); Urine Color Yellow; Urine Glucose Negative (Negative); Urine Ketone Negative (Negative); Urine Leukocyte Negative (Negative); Urine Nitrite Negative (Negative); Urine Occult Blood 1+ (Negative); Urine Specific Gravity 1.015 (<1.030); Urine Urobilinogen Negative (Neg - 1+)
[2024-10-13 19:51] VITALS: BP 152/80
--- NOTE | 2024-10-13 19:54 | ED.GENMED ---
History of Present Illness
General
Chief Complaint: Weakness
Time Seen by Provider: 10/13/24 19:40
History of Present Illness
History of Present Illness:
Patient is a 74-year-old woman with history of Parkinson's, orthostatic hypotension presenting to the emergency department with weakness. Patient's last known normal was around 2. She then states that she felt warm initially thought it was the
oven but the feeling did not go away. She states that after that episode she had difficulty walking. Normally she is independent but needed assistance and a walker. She stated that her right leg felt heavy. She denies any numbness tingling. No
changes in her speech when this occurred. She states that she feels generally weak since the episode. They do think that this could be related to the carbidopa levodopa. She has not had had any recent adjustments in her medications. She did see
neurology a few months ago.
Past History
Past History
ED Past Medical History: Cancer and Other (parkinsons)
ED Past Surgical History: Other
Social History
Tobacco: Non-smoker
Alcohol: None
Drug: None
Personal:
Living: with family
Employment: Retired
Phy Exam
Physical Exam
Physical Exam:
GENERAL: in no acute distress
HEENT: normocephalic, extraocular movements intact, moist oral mucosa
NECK: normal inspection
RESPIRATORY: no respiratory distress, clear to auscultation bilaterally
CARDIOVASCULAR: regular rate and rhythm
ABDOMEN/: soft, non-distended, non-tender to palpation, no rebound or guarding
EXTREMITIES: non-tender, no edema/swelling
NEUROLOGIC: alert and oriented x 3, cranial nerves II-XII intact except for slight right-sided facial droop, right upper extremity strength 5/5, left upper extremity strength 5/5, right lower extremity strength 4/5, left lower extremity strength
4/5, decreased sensation to the right arm, normal [id number] and [id number], gait not tested formally
SKIN: warm
Course
Orders/Labs/Results
Orders:
Orders
10/13/24 16:23
EKG [Electrocardiogram (*1)] Urgent
Reason for Study: Fatigue / Weakness
EKG- Treatment ONCE
10/13/24 16:32
Complete Blood Count/With Diff Urgent
Comprehensive Metabolic Panel Urgent
Troponin I Urgent
10/13/24 19:45
Urinalysis Reflex To Culture Urgent
Date Specimen was Collected: 10/13/24
Time Specimen was Collected: 19:43
Urine Microscopic Reflex Cult Urgent
10/13/24 19:54
CT Head W/o Iv Contrast Urgent
Comment:
Reason For Exam: right leg weakness
Abnormal Lab Results
10/13/24 10/13/24
16:32 19:45
RBC 3.86 L 10^6/uL
(4.20-5.40)
Hgb 11.2 L g/dL
(12.0-16.0)
Hct 34.3 L %
(37.0-47.0)
MCHC 32.7 L g/dL
(33.0-37.0)
Absolute Lymphs (auto) 0.8 L 10^3/uL
(1.2-3.4)
Neutrophils % 78.8 H %
(42.2-75.2)
Lymphocytes % 13.3 L %
(20.5-51.1)
BUN 18 H mg/dl
(7-17)
Creatinine 0.5 L mg/dL
(0.6-1.0)
Glucose 121 H mg/dl
(70-99)
Ur Occult Blood Reflex 1+ A
(Negative)
Urine Bacteria (Reflex) Few A
(Negative)
10/13/24 16:32
10/13/24 16:32
Vital Signs
Initial and Last Documented VS:
Initial Vital Signs
Temp Pulse Resp BP Pulse Ox
98.8 F 71 18 183/84 97
10/13/24 16:19 10/13/24 16:19 10/13/24 16:19 10/13/24 16:19 10/13/24 16:19
Last Documented Vital Signs
Temp Pulse Resp BP Pulse Ox
98.8 F 83 21 143/69 98
10/13/24 16:19 10/13/24 21:20 10/13/24 21:20 10/13/24 21:00 10/13/24 21:00
MDM/Problems Addressed
Differential Diagnosis Includes:
Patient is a 74-year-old woman with history of Parkinson's, orthostatic hypotension presenting to the emergency department with weakness. On arrival patient is actually hypertensive with a blood pressure in the 180s. During my evaluation her blood
pressure was in the 150s. On exam she does have a mild right-sided facial droop most prominent when patient smiles, decree sensation to the right arm and 4 out of 5 strength in bilateral lower extremities. Concern for CVA versus medication side
effect versus urine infection or metabolic derangement. Will check blood work EKG CTs and urine sample. Patient will need admission
*Critical Care Note
Total Time (30-74mins, 75-104mins- exclusive of procedures): Not Applicable
Update Note
Update Note:
Blood work unremarkable. Urine with some bacteria but no leukocyte esterase or nitrates. CT scan per my interpretation with no obvious hemorrhage. Per the official read no acute intracranial abnormality. Given patient's symptoms patient will
benefit from admission for MRI and neuroevaluation. Discussed with hospitalist who accepted patient to their service
ED Attending Note
-
Portions of this chart may have been created with voice recognition software.� Occasional wrong word or��sound alike� substitutions may have occurred due to the inherent limitations of voice recognition software.
Discharge Plan
Departure
Patient Disposition: Admit
Date of Disposition: 10/13/24
Time of Disposition: 21:47
Presentation/result/management discussed w/ accepting MD/DO: Hospitalist
Discharge Problem:
Weakness
Prescriptions:
No Action
pramipexole 0.25 mg Tablet
0.25 mg PO TID Qty: 90 0RF
Rx Instructions:
0800,1400,2100
carbidopa-levodopa 25-100 mg tablet extended release
4 tab PO BID@0600,2200 Qty: 240 0RF
carbidopa-levodopa 25-100 mg Tablet Extended Release
3 tab PO BID@1100,1630 Qty: 180 0RF
quetiapine 25 mg Tablet
25 mg PO HS
Rx Instructions:
2100
levothyroxine 75 mcg tablet
75 mcg PO DAILY@0600
midodrine 2.5 mg tablet
2.5 mg PO TIDPRN PRN (Reason: BP<150)
lorazepam 1 mg Tablet
1 mg PO TID@0600,1400,2100
melatonin 3 mg Tablet
3 mg PO DAILYPRN PRN (Reason: SLEEP)
Patient Comments:
10/13/24:FAMILY STATES PATIENT TOOK THIS IN THE AFTERNOON TO TRY TO SLEEP
acetaminophen 500 mg Tablet
1,000 mg PO TIDPRN PRN (Reason: mild pain)
Referrals:
Christian Espinal DO [Family Provider] -
Interventions
Interventions:
*Risk Screen - Suicide Last Done: 10/13/24 19:47
*General Assessment Last Done: 10/13/24 19:47
*Neglect/Abuse Screening Last Done: 10/13/24 19:47
*ED- Fall Risk Assessment Last Done: 10/13/24 19:47
*ED COVID-19 Vaccine History Last Done: 10/13/24 19:47
ED- Cardiac Assessment Last Done: 10/13/24 19:47
ED- Neurological Assessment Last Done: 10/13/24 19:47
ED- Pulmonary Assessment Last Done: 10/13/24 19:47
Discharge Date and Time
Print Language: AMERICAN
[2024-10-13 19:57] LABS: Urine Bacteria Few (Negative); Urine Red Blood Cell 0-2 /HPF (0-2); Urine Squamous Cell 0-2 /LPF (Few); Urine White Cell 0-2 /HPF (0-5)
[2024-10-13 20:00] VITALS: BP 156/74
[2024-10-13 21:00] VITALS: BP 143/69
[2024-10-13 21:28] VITALS: BMI 19.5
[2024-10-13 22:00] VITALS: BP 152/73
--- NOTE | 2024-10-13 22:11 | HPS.HSE ---
Family Physician
-
Family Physician: Christian Espinal
Chief Complaint
-
Right-sided weakness
History of Present Illness
This is a 74-year-old with past medical history stable For Parkinson's disease, hypothyroid, orthostatic hypotension depression who comes into the Emergency Department with right-sided weakness.
Patient reports that she was in her usual state of health when she had was this morning. She was ambulating normally although occasionally she uses a walker when she has an illness. She stated that she did not usual activities in the morning.
After making a meal in the afternoon she felt that she was not her usual self but she could not describe exactly. She told a family member that she needed to lay down. She could not sleep so she she went to go use the bathroom and she needed help
to get off. When family members and caregiver so had images that she had weakness on right side and she was wobbly on her feet. She had to use the help of assist and walker to get to the emergency department.
She reports that there was no subtle slurred speech. Show she denies any headache. She denies any nausea vomiting or diarrhea. She denies any fevers or chills. She denies any urinary symptoms. She denies any recent changes in her medications.
She tells me that she does not feel quite her normal self but denies any specific numbness. She denies any tingling.
Patient has no known history of TIA or CVA. She is not on aspirin.
In the emergency department she was afebrile, blood pressure was 143/70 with a pulse of 83 satting 98% on room air. ECG showed normal sinus rhythm, troponin was negative, UA was negative.
CT of the head showed no acute intracranial process.
CBC was normal.
Electrolytes were normal. BUN and creatinine were normal and glucose was 120.
Medical History
Past Medical History
Past Medical History: Reports Other (Hyperlipidemia, hypothyroidism, depression, anxiety, Parkinson's disease, dementia, breast cancer, osteopenia)
Past Surgical History: Reports Gynocological
Social History
Tobacco: Non-smoker
Alcohol: None
Drug: None
Family History
Family History: Not pertinent
Allergies / Home Medications
Allergies reflects when Allergies were last updated in [facility].
Home Medications with original date entered in [facility]
Allergy/Medication List:
Allergies
Allergy/AdvReac Type Severity Reaction Status Date / Time
No Known Allergies Allergy Verified 10/02/23 13:06
Home Medications
carbidopa ER 25 mg-levodopa 100 mg tablet,extended release 3 tab PO BID@1100,1630 PARKINSON #180 tabs 12/11/23
carbidopa ER 25 mg-levodopa 100 mg tablet,extended release 4 tab PO BID@0600,2200 parkinson's disease #240 tabs 12/11/23
pramipexole 0.25 mg tablet 0.25 mg PO TID #90 tabs 12/11/23
acetaminophen 500 mg tablet 1,000 mg PO TIDPRN PRN mild pain 10/13/24
levothyroxine 75 mcg tablet 75 mcg PO DAILY@0600 Thyroid 10/13/24
lorazepam 1 mg tablet 1 mg PO TID@0600,1400,2100 10/13/24
melatonin 3 mg tablet 3 mg PO DAILYPRN PRN SLEEP 10/13/24
midodrine 2.5 mg tablet 2.5 mg PO TIDPRN PRN BP<150 10/13/24
quetiapine 25 mg tablet 25 mg PO HS 10/13/24
Review of Systems
-
History Source: Patient
Constitutional: Reports No Symptoms
EENT: Reports No Symptoms
Respiratory: Reports No Symptoms
Cardiac: Reports No Symptoms
Abdomen/GI: Reports No Symptoms
: Reports No Symptoms
Musculoskeletal: Reports No Symptoms
Skin: Reports No Symptoms
Neurological: Reports Weakness
Endocrine: Reports No Symptoms
Hematologic/Lymphatic: Reports No Symptoms
Psych: Reports No Symptoms
Physical Exam
Vital Signs
Vital Signs
Temp Pulse Resp BP Pulse Ox
98.8 F 83 21 143/69 98
10/13/24 16:19 10/13/24 21:20 10/13/24 21:20 10/13/24 21:00 10/13/24 21:00
Physical Exam
General: Well Developed, Well Nourished, Comfortable and Conversant; No Slurred Speech
HEENT: NormoCephalic, Anicteric, Moist mucous membranes, Atraumatic and PERRLA
Respiratory: Clear
Cardiac: S1/S2 and Regular Rhythm
Breast: Deferred by me
GI: Soft, Non Tender, Non Distended and Normal Bowel Sounds
Rectal: Deferred by Provider
Genito-urinary: Deferred by me
Musculoskeletal: No Clubbing, No Cyanosis and No Edema
Skin: Warm
Neuro: AO x 3, Cranial Nerves Intact, No Sensory Deficits, Facial Droop (sublte right facial droop) and Other (4/5 strenght in R LE, subtle weakness in the RUE)
Hematologic/Lymphatic: No Lymphadenopathy
Psych: Calm
Laboratory Results
-
10/13/24 16:32
10/13/24 16:32
Laboratory Results
Total Bilirubin 0.7 mg/dl (0.2-1.3) 10/13/24 16:32
AST 16 U/L (14-36) 10/13/24 16:32
ALT < 10 U/L (0-35) 10/13/24 16:32
Alkaline Phosphatase 85 U/L (38-126) 10/13/24 16:32
Troponin I < 0.012 ng/ml 10/13/24 16:32
Data Reviewed
-
CT Scan: Report Reviewed by me
Medical Tests (Nuc Med, Echo, EKG etc): Image Personally Visualized and interpreted
Lab Data: Labs Reviewed by me
Old Records: Reviewed
Impression/Plan
-
IMPRESSION:
74-year-old with history of Parkinson's disease and mild dementia presents to the emergency department with difficulty with ambulation, right-sided weakness and found to have slight facial droop. Currently weakness appears minimal. Workup in the
emergency department is negative for an acute infection. There is no evidence of stroke on the CT. Labs were unremarkable and vital signs were stable.
Currently NIHSS equals 1
PLAN:
1. TIA/CVA - Onset this afternoon. Mild persistent weakness. Facial droop of uncertain duration
- admit to telemetry observation
- asa 324 x 1, then 81 daily for now
- neurochecks q 6
- speech/swallow eval
- permissive htn, monitor and continue midodrin if SBP < 150
- lipid, a1c, tsh
- mri in am
- neurology consultation
2. PK
- continue sinamet and pramipexole
- continue quetiapine
3. Hypothyroid
- continue levothyroxine
DVT PPX - lovenox sq
Code status - DNR
[2024-10-13 23:00] VITALS: BP 160/73
[2024-10-14] VITALS (10 sets, daily range): BP systolic 115–156; BP diastolic 56–81; PULSE 68; O2SAT 96–97; BMI 19.1
--- NOTE | 2024-10-14 01:10 | PTCARENOTE ---
Received patient from ED via stretcher. Patient pulled over from stretcher to bed. Oriented patient to room and placed call fong within reach.
[2024-10-14] MEDS: TYLENOL 650 MG PO (04:12)
[2024-10-14] MEDS: MELATONIN 3 MG PO (04:13)
[2024-10-14] MEDS: ATIVAN 1 MG PO ×3 (05:40→21:14)
[2024-10-14] MEDS: SYNTHROID 75 MCG PO (05:40)
[2024-10-14] MEDS: SINEMET CR 25-100 (EXTENDED RELEASE) 4 TABLET PO (05:41)
[2024-10-14 06:57] LABS: Hematocrit 34.8 % (37.0-47.0); Hemoglobin 11.7 g/dL (12.0-16.0); Mean Corp Hgb Conc. 33.6 g/dL (33.0-37.0); Mean Corpuscular Hgb 29.9 pg (27.0-31.0); Mean Platelet Volume 9.3 fL (7.4-10.4); Platelet Count 264 10^3/uL (130-400); Red Blood Cell Count 3.91 10^6/uL (4.20-5.40); Red Cell Dist. Width 13.4 % (11.5-14.5)
[2024-10-14 07:22] LABS: Blood Urea Nitrogen 15 mg/dl (7-17); Calcium 9.9 mg/dl (8.4-10.2); Carbon Dioxide 27 mmol/L (22-30); Chloride 103 mmol/L (98-107); Estimated Creatinine Clearance 61 ml/min; Glucose 99 mg/dl (70-99); HDL Cholesterol 68 mg/dl; LDL Cholesterol, Calculated 146 mg/dl; Potassium 4.1 mmol/L (3.5-5.1); Sodium 140 mmol/L (135-145); Total Cholesterol 232 mg/dl (50-199); Triglyceride 94 mg/dl (10-149); Very Low Density Lipoprotein 18 mg/dl (0-30); eGFR > 60.00
--- NOTE | 2024-10-14 07:38 | CON.NEURO ---
Consultation
Order
Date of Consultation: 10/14/24
Requesting Provider: Oliver Maher MD
Reason for Consult: TIA
Neurology Consultation Note.
HPI:This is a 74-year-old RH woman who presented to the [facility] on 10/13/2024 with right-sided weakness.
Ms. Ríos reports an episode where she 'started to feel weird' while with her friend Malathi, leading to difficulty walking and the need for assistance to use the bathroom.
The patient describes feeling like her legs were heavy and experiencing a 'weird feeling' that made her unable to walk independently. She notes that this sensation was not as severe as a similar episode she had experienced about a year ago.
According to patient's Ms. Ríos has been experiencing forgetfulness for at least 2-3 years, with worsening short-term memory. She has also developed compulsive behaviors, which were not present earlier in her life. These include daily
rearrangement of pictures and frames, excessive cleaning of blinds leading to climbing ladders and stools to complete the above.
Ms. Ríos's appetite has changed recently, with a decrease in food intake. She is not currently using any mobility aids at home, having ceased use of assistive devices since August. The patient is not receiving physical therapy.
The patient has been taking Seroquel since last December or January for hallucinations, which she still experiences occasionally. She also takes Ativan for anxiety, depression, and sleep, though it reportedly doesn't provide significant relief. She was
briefly on amantadine but was taken off in August due to 'lack of efficacy'.
ER VS: 183/84, 71, afebrile
EKG: NSR, QTc Int : 405 ms
PDMP:Lorazepam 1 MG 90 tablets filled in , 08/26/2024, Lorazepam 0.5 Mg 42 tablets filled in
Labs: Glucose�121, normal WBCs, creatinine, LDL�146.
CT head wo contrast�no acute infarcts, bilateral basal ganglia calcifications, global parenchymal atrophy,
PMH: Breast cancer (status post RT), idiopathic Parkinson disease( Neurology), right frontal subarachnoid cyst, DLP, hypothyroidism, insomnia, autonomic dysfunction, Fuchs disease, osteopenia, COOPER, insomnia
PSH: Right lumpectomy, bilateral cataract surgery, corneal transplant, right lumpectomy, tonsillectomy, left oophorectomy, uses walker as needed
SH: , former smoker
FH: Not contributory to current presentation
All: Donepezil
ROS: Constitutional: Negative. Negative for chills, fever and unexpected weight change.
HENT: Negative for ear pain, hearing loss, tinnitus and trouble swallowing.
Eyes: Positive for chronic proptosis
Respiratory: Negative for cough, choking and shortness of breath.
Cardiovascular: Negative for chest pain, palpitations and leg swelling.
Gastrointestinal: Negative for abdominal pain and vomiting.
Endocrine: Negative. Negative for cold intolerance.
Genitourinary: Negative for dysuria, flank pain and urgency.
Musculoskeletal: Negative for back pain, gait problem, neck pain and neck stiffness.
Skin: Negative for rash.
Allergic/Immunologic: Negative. Negative for immunocompromised state.
Neurological: Positive for dyskinesia, cognitive impairment
Psychiatric/Behavioral: Positive for insomnia, anxiety, intermittent visual hallucinations
General: Well developed. In no acute distress.
Cardio: Regular rate and rhythm without murmur. Extremities are without cyanosis or edema.
Neuro:
Mental Status: Alert, oriented to person, place, year, month. Day and date for incorrect. Impaired attention and recall. Good fund of knowledge. Follows complex requests across the midline. Comprehension, naming, and repetition intact.
Cranial Nerves: Pupils are equally round, surgical. EOMs full. Visual kern full to confrontation. Right greater than left ptosis no nystagmus. V1-V3 intact to light touch and pinprick bilaterally, symmetric. Face symmetric. Impaired hearing
AU. The palate elevated well. SCMs and traps 5/5. Tongue midline. No dysarthria.
Motor: Normal bulk and tone. No pronator or arm drift. Strength 5/5 throughout. No clonus.
Reflexes: Positive for grasp bilaterally
Sensory: Preserved vibration at the toes
Coordination: No dysmetria, generalized dyskinesias
Gait: deferred
Assessment and Plan:
I. IPD with dyskinesia(unclear if peak dose, dysphasic or wearing off dyskinesia). Dopamine dysregulation syndrome.
II. Chronic encephalopathy (neurodegenerative, toxic)
III. Chronic bilateral ptosis
IV. COOPER
- Start dyskinesia diary
- ASA 81 mg QD
- Reduce carbidopa levodopa 25/100 to 3 tablets 4 times daily (6 AM, 11 AM, 4 PM, 10 PM)
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
- Brain MRI wo cooper with sedation
- Outpatient ophthalmology evaluation
- The case was discussed with patient's spouse
I personally reviewed all radiology and labs along with past medical records pertinent to current medical problems. Total time spent in patient care is 60 minutes.
Thank you for allowing us to participate in the care of this patient. We will continue to follow. Please do not hesitate to contact us with any questions or concerns.
Subjective/Objective
Subjective Data
Date of Service: October 14, 2024
Objective Data
Vital Signs
Temp Pulse Resp BP Pulse Ox
37.1 C 77 16 147/68 96
10/14/24 03:35 10/14/24 03:35 10/14/24 03:35 10/14/24 03:35 10/14/24 03:35
Lab Results
10/14/24 06:22
10/14/24 06:22
Sodium 140 mmol/L (135-145) 10/14/24 06:22
Potassium 4.1 mmol/L (3.5-5.1) 10/14/24 06:22
BUN 15 mg/dl (7-17) 10/14/24 06:22
Glucose 99 mg/dl (70-99) 10/14/24 06:22
Calcium 9.9 mg/dl (8.4-10.2) 10/14/24 06:22
LDL Cholesterol, Calc 146 mg/dl 10/14/24 06:22
Patient Allergies
No Known Allergies Allergy (Verified 10/02/23 13:06)
Medications
-
Active Medications
Generic Name Dose Route Start Last Admin
Trade Name Freq PRN Reason Stop Dose Admin
Acetaminophen 650 mg 10/14/24 00:26
Acetaminophen 650 Mg Rectal Suppository RECTAL 11/11/24 00:25
Q4HPRN PRN
ZELAYA, mild pain, or temp >100.4F
Acetaminophen 650 mg 10/14/24 00:26 10/14/24 04:12
Acetaminophen 325 Mg Tablet PO 11/11/24 00:25 650 mg
Q4HPRN PRN Administration
ZELAYA, mild pain, or temp >100.4F
Aspirin 81 mg 10/14/24 08:00
Aspirin 81 Mg Chewable Tablet PO 11/11/24 07:59
DAILY CAROLYN
Carbidopa/Levodopa 4 tablet 10/14/24 06:00 10/14/24 05:41
Carbidopa (25 Mg) Levodopa (100 Mg) Extended Release Tablet PO 11/11/24 05:59 4 tablet
BID@0600,2200 CAROLYN Administration
Carbidopa/Levodopa 3 tablet 10/14/24 11:00
Carbidopa (25 Mg) Levodopa (100 Mg) Extended Release Tablet PO 11/11/24 10:59
BID@1100,1630 CAROLYN
Enoxaparin Sodium 30 mg 10/14/24 18:00
Enoxaparin Sodium 30 Mg/0.3 Ml Syringe SC 11/11/24 17:59
QPM CAROLYN
Levothyroxine Sodium 75 mcg 10/14/24 06:00 10/14/24 05:40
Levothyroxine 75 Mcg Tablet PO 11/11/24 05:59 75 mcg
DAILY@0600 CAROLYN Administration
Lorazepam 1 mg 10/14/24 06:00 10/14/24 05:40
Lorazepam 1 Mg Tablet PO 11/11/24 05:59 1 mg
TID@0600,1400,2100 CAROLYN Administration
Melatonin 3 mg 10/14/24 00:26 10/14/24 04:13
Melatonin 3 Mg Tablet PO 11/11/24 00:25 3 mg
DAILYPRN PRN Administration
SLEEP
Midodrine 2.5 mg 10/14/24 00:26
Midodrine 2.5 Mg Tablet PO
TIDPRN PRN
if BP<150
Pramipexole Dihydrochloride 0.25 mg 10/14/24 08:00
Pramipexole 0.25 Mg Tablet PO 11/11/24 07:59
TID@0800,1400,2100 CAROLYN
Quetiapine Fumarate 25 mg 10/14/24 21:00
Quetiapine 25 Mg Tablet PO 11/11/24 20:59
Q24H CAROLYN
Sodium Chloride 0 flush 10/13/24 23:00
Sodium Chloride 0.9% (Flush) Syringe IV 11/10/24 22:59
PER PROTOCOL CAROLYN
Home Medications
�Medication �Instructions �Recorded
carbidopa ER 25 mg-levodopa 100 mg 3 tab PO BID@1100,1630 PARKINSON 12/11/23
tablet,extended release #180 tabs
carbidopa ER 25 mg-levodopa 100 mg 4 tab PO BID@0600,2200 parkinson's 12/11/23
tablet,extended release disease #240 tabs
pramipexole 0.25 mg tablet 0.25 mg PO TID #90 tabs 12/11/23
acetaminophen 500 mg tablet 1,000 mg PO TIDPRN PRN mild pain 10/13/24
levothyroxine 75 mcg tablet 75 mcg PO DAILY@0600 Thyroid 10/13/24
lorazepam 1 mg tablet 1 mg PO TID@0600,1400,2100 10/13/24
melatonin 3 mg tablet 3 mg PO DAILYPRN PRN SLEEP 10/13/24
midodrine 2.5 mg tablet 2.5 mg PO TIDPRN PRN BP<150 10/13/24
quetiapine 25 mg tablet 25 mg PO HS 10/13/24
Vital Signs and Labs
-
Vital Signs and Labs:
Vital Signs
Temp Pulse Resp BP Pulse Ox
37.1 C 77 16 147/68 96
10/14/24 03:35 10/14/24 03:35 10/14/24 03:35 10/14/24 03:35 10/14/24 03:35
Lab Results
10/14/24 06:22
10/14/24 06:22
Sodium 140 mmol/L (135-145) 10/14/24 06:22
Potassium 4.1 mmol/L (3.5-5.1) 10/14/24 06:22
BUN 15 mg/dl (7-17) 10/14/24 06:22
Glucose 99 mg/dl (70-99) 10/14/24 06:22
Calcium 9.9 mg/dl (8.4-10.2) 10/14/24 06:22
LDL Cholesterol, Calc 146 mg/dl 10/14/24 06:22
Medications
-
Medications:
Generic Name Dose Route Start Last Admin
Trade Name Freq PRN Reason Stop Dose Admin
Acetaminophen 650 mg 10/14/24 00:26
Acetaminophen 650 Mg Rectal Suppository RECTAL 11/11/24 00:25
Q4HPRN PRN
ZELAYA, mild pain, or temp >100.4F
Acetaminophen 650 mg 10/14/24 00:26 10/14/24 04:12
Acetaminophen 325 Mg Tablet PO 11/11/24 00:25 650 mg
Q4HPRN PRN Administration
ZELAYA, mild pain, or temp >100.4F
Aspirin 81 mg 10/14/24 08:00
Aspirin 81 Mg Chewable Tablet PO 11/11/24 07:59
DAILY CAROLYN
Carbidopa/Levodopa 4 tablet 10/14/24 06:00 10/14/24 05:41
Carbidopa (25 Mg) Levodopa (100 Mg) Extended Release Tablet PO 11/11/24 05:59 4 tablet
BID@0600,2200 CAROLYN Administration
Carbidopa/Levodopa 3 tablet 10/14/24 11:00
Carbidopa (25 Mg) Levodopa (100 Mg) Extended Release Tablet PO 11/11/24 10:59
BID@1100,1630 CAROLYN
Enoxaparin Sodium 30 mg 10/14/24 18:00
Enoxaparin Sodium 30 Mg/0.3 Ml Syringe SC 11/11/24 17:59
QPM CAROLYN
Levothyroxine Sodium 75 mcg 10/14/24 06:00 10/14/24 05:40
Levothyroxine 75 Mcg Tablet PO 11/11/24 05:59 75 mcg
DAILY@0600 CAROLYN Administration
Lorazepam 1 mg 10/14/24 06:00 10/14/24 05:40
Lorazepam 1 Mg Tablet PO 11/11/24 05:59 1 mg
TID@0600,1400,2100 CAROLYN Administration
Melatonin 3 mg 10/14/24 00:26 10/14/24 04:13
Melatonin 3 Mg Tablet PO 11/11/24 00:25 3 mg
DAILYPRN PRN Administration
SLEEP
Midodrine 2.5 mg 10/14/24 00:26
Midodrine 2.5 Mg Tablet PO
TIDPRN PRN
if BP<150
Pramipexole Dihydrochloride 0.25 mg 10/14/24 08:00
Pramipexole 0.25 Mg Tablet PO 11/11/24 07:59
TID@0800,1400,2100 CAROLYN
Quetiapine Fumarate 25 mg 10/14/24 21:00
Quetiapine 25 Mg Tablet PO 11/11/24 20:59
Q24H CAROLYN
Sodium Chloride 0 flush 10/13/24 23:00
Sodium Chloride 0.9% (Flush) Syringe IV 11/10/24 22:59
PER PROTOCOL CAROLYN
Home Medications
-
Home Medications
carbidopa ER 25 mg-levodopa 100 mg tablet,extended release 3 tab PO BID@1100,1630 PARKINSON #180 tabs 12/11/23
carbidopa ER 25 mg-levodopa 100 mg tablet,extended release 4 tab PO BID@0600,2200 parkinson's disease #240 tabs 12/11/23
pramipexole 0.25 mg tablet 0.25 mg PO TID #90 tabs 12/11/23
acetaminophen 500 mg tablet 1,000 mg PO TIDPRN PRN mild pain 10/13/24
levothyroxine 75 mcg tablet 75 mcg PO DAILY@0600 Thyroid 10/13/24
lorazepam 1 mg tablet 1 mg PO TID@0600,1400,2100 10/13/24
melatonin 3 mg tablet 3 mg PO DAILYPRN PRN SLEEP 10/13/24
midodrine 2.5 mg tablet 2.5 mg PO TIDPRN PRN BP<150 10/13/24
quetiapine 25 mg tablet 25 mg PO HS 10/13/24
[2024-10-14] MEDS: MIRAPEX 0.25 MG PO ×3 (09:15→21:12)
[2024-10-14] MEDS: LOW STRENGTH ASPIRIN 81 MG PO (09:15)
[2024-10-14 09:19] LABS: Glycohemoglobin (HgbA1c) 5.4 % (4.0-5.6)
[2024-10-14] MEDS: SINEMET CR 25-100 (EXTENDED RELEASE) 3 TABLET PO ×3 (10:57→22:24)
--- NOTE | 2024-10-14 11:50 | PTOTSP ---
Dysphagia Eval
Patient reporting chronic mild changes to swallowing likely related to missing dentition and known Parkinson's disease. Today no significant signs of dysphagia or aspiration observed. Cannot r/o silent aspiration though no clinical signs
concerning for aspiration complications present.
Recommend:
1. Regular, Thin
2. General aspiration precautions
3. Assist with cutting foods as needed
4. Medications as best tolerated
[2024-10-14 12:04] LABS: Ammonia < 9 umol/L (9-30)
[2024-10-14 12:37] LABS: TSH Reflex To Free T4 0.04 uIU/ml (0.47-4.68)
[2024-10-14 12:57] LABS: Vitamin B12 380 pg/ml (239-931)
[2024-10-14 13:04] LABS: Free T4 1.47 ng/dl (0.78-2.19)
--- NOTE | 2024-10-14 13:28 | CM ---
Addendum entered by ANGELINE Callahan 10/14/24 17:01:
Met with patient's spouse who stated that he would like for patient to transfer to SNF after discharge. Patient Observation and this was explained to patient and spouse and how that would impact coverage for SNF. Attending updated. Therapy indicates
SNF or home.
Original Note:
Met with patient and her spouse. Spouse stated that patient lives with him and their adult disabled son, in a one story apartment no steps to enter. Patient has been ambulating independently but she does have a walker and w/c. She can bathe, dress
complete most of her ADLs and self care however spouse supervises and she has an aide who comes in twice a week for four hours. Patient's spouse does job boss, cooking, cleaning and laundry. He drives and can get patient to her appointments
and does all of the shopping.
Patient's spouse stated that patient has been on hospice multiple times with multiple agencies but they all signed of, stating that she is not appropriate for that level of care. She was at [facility] for a while. She has not been to a SNF however
patient's spouse is exploring potential LTC. She also had Palliative Care in the past as well.
Patient has a prescription plan and uses, [facility] in [place] for all of her medications.
Her PCP is, Christian Espinal.
Patient's spouse stated that he is unsure of what to do with her care as he is unable to afford LTC or additional services at home. If hospice is still an option he would like to consult with Hospice.
Patient and spouse met with attending. Will f/u for discharge planning/needs/ Patient is OBS. Patient signed the [facility] letter, it was reviewed and now it is on chart.
Plan: Case management will continue to follow and assist with discharge planning. Plan contingent on course of hospitalization.
--- NOTE | 2024-10-14 14:19 | W.PN.HOSP.TC ---
Today's Communication/Plan
-
Discharge to rehab after seen by psych.
Assessment / Plan
Assessment / Plan
IMPRESSION:
74-year-old with history of Parkinson's disease and mild dementia presents to the emergency department with difficulty with ambulation, right-sided weakness and found to have slight facial droop. Currently weakness appears minimal. Workup in the
emergency department is negative for an acute infection. There is no evidence of stroke on the CT. Labs were unremarkable and vital signs were stable.
Assessment/plan:
CVA, ruled out
Patient presented with bilateral leg weakness, facial droop of uncertain duration.
Seen by neurology.
MRI negative for acute stroke.
Concern of dopamine dysregulation syndrome
Parkinsonism with concern of dopamine dysregulation syndrome.
Neurology recommending to reduce carbidopa/levodopa 25/100 to 3 tablets 4 times daily (6 AM, 11 AM, 4 PM, 10 PM)
Recommending psych consult for impulse control which is likely from dopamine agonist
Anxiety/depression
Psych consult pending
Hypothyroidism.
Continue levothyroxine
CODE STATUS: Full code
DVT prophylaxis: Lovenox
Diet: Regular diet.
Total time spent on today's encounter was 65 minutes which included time spent in counseling the patient/family regarding diagnosis and treatment plan as listed above, goals of care, and symptom management. Case was discussed with nursing staff,
specialists, and care coordinators/case management. All labs and imaging personally reviewed by me. Remainder the time spent in detailed review of previous records, lab data, imaging, and other medical provider documentation.
Anticipated Discharge: Within 24 hours
Subjective/Interval History
-
Date of Service: October 14, 2024
Patient seen and examined at bedside.
Later on I met with patient and .
Discussed neurology recommendation regarding Reduce carbidopa levodopa 25/100 to 3 tablets 4 times daily (6 AM, 11 AM, 4 PM, 10 PM).
Patient denies chest pain or shortness of breath.
Physical therapy recommending rehab.
Objective Data
-
Labs:
Laboratory Results
10/14/24
06:22
WBC 6.0
Hgb 11.7 L
Hct 34.8 L
Plt Count 264
Sodium 140
Potassium 4.1
Chloride 103
Carbon Dioxide 27
BUN 15
Creatinine 0.4 L
Glucose 99
Calcium 9.9
Vital Signs:
Vital Signs
Temp Pulse Resp BP Pulse Ox
98 F 78 18 142/75 98
10/14/24 11:32 10/14/24 11:32 10/14/24 11:32 10/14/24 11:32 10/14/24 11:32
Physical Exam
-
General: Slurred Speech and Cachectic
HEENT: Normocephalic, Atraumatic, Moist Mucous Membranes, No Ptosis, PERRLA and Nose Appears Normal
Respiratory: Clear to Auscultation and Non Labored Respirations
Cardiac: Regular Rhythm and S1/S2
Breast: Deferred by me
GI: Soft, Nontender, Nondistended and Normal Bowel Sounds
Genito-urinary: No Costovertebral Tender
Musculoskeletal: No Clubbing, No Cyanosis and No Edema
Skin: Warm
Neuro: Awake, Oriented, AO x 3 and Other (Patient with frequent visible dyskinesia)
Psych: Calm
Data Reviewed
-
Diagnostic Radiology: Image personally visualized and interpreted and Report Reviewed by me
CT Scan: Image personally visualized and interpreted and Report Reviewed by me
Ultrasound: Image personally visualized and interpreted and Report Reviewed by me
MRI: Image personally visualized and interpreted and Report Reviewed by me
Medical Tests (Nuc Med, Echo etc): Image personally visualized and interpreted and Report Reviewed by me
Labs: Labs Reviewed by me
Old Records: Reviewed
--- NOTE | 2024-10-14 15:10 | W.PN.UPDATE ---
Update Note
Progress Note Update
Psychiatric evaluation dictated.
Patient has history of having had visual hallucinations, rather infrequently lest one about 3 weeks ago where she saw someone who was apparenly not there. The Seroquel is at very low dose 25 mg hs; it is not clear if it helps. She is also on rather
hgh dose of Ativan 1 mg tid for anxiety. She as well as deny any psychiatric history prior to her being diagnosed with PD in 2019.
As far as the OCD like symptoms go she admits she arranges and rearranges photo albums but states that she enjoys doing so and does not feel compulsion to do it; rather enjoys looking at pictures of her family, particularly children.
I suggested we could try to stop the Seroquel and /or possibly decrease the Ativan but she and were reluctant.
We will F/U.
--- NOTE | 2024-10-14 17:28 | PTCARENOTE ---
Received patient this am AAOx3. Pt forgetful an tearful intermittently. OOB to chair an tolerated well. Pt ambulates in room with assist x1. Tolerated diet. Offered no complaints. Made patient comfortable. Cont to assess patient status.
[2024-10-14] MEDS: LOVENOX 30 MG SC (17:50)
[2024-10-14] MEDS: SEROQUEL 25 MG PO (21:11)
[2024-10-15 03:30] VITALS: BP 102/52
[2024-10-15] MEDS: ATIVAN 1 MG PO (05:51)
[2024-10-15] MEDS: SYNTHROID 75 MCG PO (05:51)
[2024-10-15] MEDS: SINEMET CR 25-100 (EXTENDED RELEASE) 3 TABLET PO ×2 (05:52→11:19)
[2024-10-15 07:35] VITALS: BP 124/55
[2024-10-15] MEDS: MIRAPEX 0.25 MG PO (08:34)
[2024-10-15] MEDS: LOW STRENGTH ASPIRIN 81 MG PO (08:34)
--- NOTE | 2024-10-15 09:11 | W.PN.HOSP.TC ---
Today's Communication/Plan
-
dc neuro checks with negative MRI
continue adjusted Sinemet dosing
dc planning
Assessment / Plan
Assessment / Plan
Assessment:
Bilateral leg weakness
Hx of idiopathic Parkinson with concern of dopamine dysregulation syndrome
- MRI negative
- Neuro consulted; Sinemet decreased to 3 tabs QID
- psych evaluating, family hesitant to adjust Ativan or Seroquel dosing
- PT/OT - SNF pending
Anxiety/Depression
- psych evaluating, family hesitant to adjust Ativan or Seroquel dosing
Hypothyroidism - on replacement
DVT ppx: Lovenox
Code: Full
Anticipated Discharge: 24 - 48 hours
Subjective/Interval History
-
Date of Service: October 15, 2024
no new complaints
Objective Data
-
Vital Signs:
Vital Signs
Temp Pulse Resp BP Pulse Ox
98.1 F 64 16 124/55 98
10/15/24 07:35 10/15/24 07:35 10/15/24 07:35 10/15/24 07:35 10/15/24 07:35
I&O
10/14/24 10/15/24 10/16/24
06:59 06:59 06:59
Intake Total 600 / 600
Balance 600 / 600
Physical Exam
-
General: No Apparent Distress and Appears Chronically Ill
HEENT: Normocephalic and Atraumatic
Cardiac: Regular Rhythm and S1/S2
Genito-urinary: No Costovertebral Tender
Neuro: AO x 3 and Other (dyskinesia)
Psych: Calm
Data Reviewed
-
Total Time Spent with Patient (in minutes): 42
Labs: Labs Reviewed by me
--- NOTE | 2024-10-15 10:56 | W.PN.NEURO.1 ---
Today's Communication / Plan
-
.
Subjective/Objective
Subjective Data
Date of Service: October 15, 2024
Neurology Neurology follow up note
HPI:This is a 74-year-old RH woman who presented to the [facility] on 10/13/2024 transient lower paraparesis.
She was brought to the hospital after experiencing an episode where her legs felt heavy and she was unable to get up to go to the restroom independently.
Ms. Ríos reports that the day before coming to the hospital, she felt 'jittery' and had a headache while making a cake. She felt very warm and decided to lay down. Later, her legs felt very heavy, and she couldn't get up to go to the restroom
without assistance. She states, 'I usually get up from the bed to go to the restroom by myself, but my legs wouldn't listen to me.' This occurred between 2 and 3 PM( next scheduled dose of Sinemet at 4:30 PM).
The patient has been having chronic dyskinesia, which her reports causes her to spill things, upsetting both of them. Ms. Ríos has also been exhibiting behavioral changes, including excessive worrying about family members and engaging in
potentially dangerous activities like climbing ladders.
Recent confusion has been noted, with the patient not knowing how she got to a familiar store the day before the hospital visit.
Ms. Ríos reports no acute complaints. She was seen by psychiatry and PT.
Brain MRI wo veronique-no acute infarcts.
PMH: Breast cancer (status post RT), idiopathic Parkinson disease( Neurology), right frontal subarachnoid cyst, DLP, hypothyroidism, insomnia, autonomic dysfunction, Fuchs disease, osteopenia, VERONIQUE, insomnia
PSH: Right lumpectomy, bilateral cataract surgery, corneal transplant, right lumpectomy, tonsillectomy, left oophorectomy, uses walker as needed
SH: , former smoker, retired from security company
FH: Not contributory to current presentation
All: Donepezil
ROS: Constitutional: Negative. Negative for chills, fever and unexpected weight change.
HENT: Negative for ear pain, hearing loss, tinnitus and trouble swallowing.
Eyes: Positive for chronic proptosis
Respiratory: Negative for cough, choking and shortness of breath.
Cardiovascular: Negative for chest pain, palpitations and leg swelling.
Gastrointestinal: Negative for abdominal pain and vomiting.
Endocrine: Negative. Negative for cold intolerance.
Genitourinary: Negative for dysuria, flank pain and urgency.
Musculoskeletal: Negative for back pain, gait problem, neck pain and neck stiffness.
Skin: Negative for rash.
Allergic/Immunologic: Negative. Negative for immunocompromised state.
Neurological: Positive for dyskinesia, cognitive impairment
Psychiatric/Behavioral: Positive for insomnia, anxiety, intermittent visual hallucinations
General: Well developed. In no acute distress.
Cardio: Regular rate and rhythm without murmur. Extremities are without cyanosis or edema.
Neuro:
Mental Status: Alert, oriented to person, place, year, month. Day and date for incorrect. Impaired attention and recall. Good fund of knowledge. Follows complex requests. Comprehension, naming, and repetition intact. Labile mood
Cranial Nerves: Pupils are equally round, surgical. EOMs full. Visual kern full to confrontation. Right greater than left ptosis no nystagmus. V1-V3 intact to light touch and pinprick bilaterally, symmetric. Face symmetric. Impaired hearing
AU. The palate elevated well. SCMs and traps 5/5. Tongue midline. No dysarthria. Mild hypophonia
Motor: Normal bulk and tone. No pronator or arm drift. Strength 5/5 throughout. No clonus.
Reflexes: Positive for grasp bilaterally
Sensory: Preserved vibration at the toes
Coordination: No dysmetria, generalized dyskinesias
Gait: deferred
Assessment and Plan:
I. IPD with dyskinesia
II. Chronic encephalopathy (neurodegenerative, toxic)
III. Chronic bilateral ptosis
IV. VERONIQUE
- Fall precautions
- Dyskinesia diary
- Continue carbidopa levodopa 25/100 to 3 tablets 4 times daily (6 AM, 11 AM, 4 PM, 10 PM)
- OP Neurology and Psychiatry follow up
- The case was discussed with patient's spouse
-SW follow up
- Please recall neurology services any questions or concerns
I personally reviewed all radiology and labs along with past medical records pertinent to current medical problems. Total time spent in patient care is 45 minutes.
Thank you for allowing us to participate in the care of this patient. Please do not hesitate to contact us with any questions or concerns.
Objective Data
Vital Signs
Temp Pulse Resp BP Pulse Ox
36.7 C 64 16 124/55 98
10/15/24 07:35 10/15/24 07:35 10/15/24 07:35 10/15/24 07:35 10/15/24 07:35
Lab Results
10/14/24 06:22
10/14/24 06:22
Sodium 140 mmol/L (135-145) 10/14/24 06:22
Potassium 4.1 mmol/L (3.5-5.1) 10/14/24 06:22
BUN 15 mg/dl (7-17) 10/14/24 06:22
Glucose 99 mg/dl (70-99) 10/14/24 06:22
Calcium 9.9 mg/dl (8.4-10.2) 10/14/24 06:22
LDL Cholesterol, Calc 146 mg/dl 10/14/24 06:22
Vitamin B12 380 pg/ml (239-931) 10/14/24 11:34
Patient Allergies
No Known Allergies Allergy (Verified 10/02/23 13:06)
Vital Signs and Labs
-
Vital Signs and Labs:
Vital Signs
Temp Pulse Resp BP Pulse Ox
36.7 C 64 16 124/55 98
10/15/24 07:35 10/15/24 07:35 10/15/24 07:35 10/15/24 07:35 10/15/24 07:35
Lab Results
10/14/24 06:22
10/14/24 06:22
Sodium 140 mmol/L (135-145) 10/14/24 06:22
Potassium 4.1 mmol/L (3.5-5.1) 10/14/24 06:22
BUN 15 mg/dl (7-17) 10/14/24 06:22
Glucose 99 mg/dl (70-99) 10/14/24 06:22
Calcium 9.9 mg/dl (8.4-10.2) 10/14/24 06:22
LDL Cholesterol, Calc 146 mg/dl 10/14/24 06:22
Vitamin B12 380 pg/ml (239-931) 10/14/24 11:34
Medications
-
Medications:
Generic Name Dose Route Start Last Admin
Trade Name Freq PRN Reason Stop Dose Admin
Acetaminophen 650 mg 10/14/24 00:26
Acetaminophen 650 Mg Rectal Suppository RECTAL 11/11/24 00:25
Q4HPRN PRN
ZELAYA, mild pain, or temp >100.4F
Acetaminophen 650 mg 10/14/24 00:26 10/14/24 04:12
Acetaminophen 325 Mg Tablet PO 11/11/24 00:25 650 mg
Q4HPRN PRN Administration
ZELAYA, mild pain, or temp >100.4F
Aspirin 81 mg 10/14/24 08:00 10/15/24 08:34
Aspirin 81 Mg Chewable Tablet PO 11/11/24 07:59 81 mg
DAILY CAROLYN Administration
Carbidopa/Levodopa 3 tablet 10/14/24 11:00 10/14/24 16:57
Carbidopa (25 Mg) Levodopa (100 Mg) Extended Release Tablet PO 11/11/24 10:59 3 tablet
BID@1100,1630 CAROLYN Administration
Carbidopa/Levodopa 3 tablet 10/14/24 10:35 10/15/24 05:52
Carbidopa (25 Mg) Levodopa (100 Mg) Extended Release Tablet PO 11/11/24 05:59 3 tablet
BID@0600,2200 CAROLYN Administration
Enoxaparin Sodium 30 mg 10/14/24 18:00 10/14/24 17:50
Enoxaparin Sodium 30 Mg/0.3 Ml Syringe SC 11/11/24 17:59 30 mg
QPM CAROLYN Administration
Levothyroxine Sodium 75 mcg 10/14/24 06:00 10/15/24 05:51
Levothyroxine 75 Mcg Tablet PO 11/11/24 05:59 75 mcg
DAILY@0600 CAROLYN Administration
Lorazepam 1 mg 10/14/24 06:00 10/15/24 05:51
Lorazepam 1 Mg Tablet PO 11/11/24 05:59 1 mg
TID@0600,1400,2100 CAROLYN Administration
Lorazepam 1 mg 10/14/24 09:46
Lorazepam 2 Mg/Ml Vial IV
ONCE PRN
Give one hour before MRI
Melatonin 3 mg 10/14/24 00:26 10/14/24 04:13
Melatonin 3 Mg Tablet PO 11/11/24 00:25 3 mg
DAILYPRN PRN Administration
SLEEP
Midodrine 2.5 mg 10/14/24 00:26
Midodrine 2.5 Mg Tablet PO
TIDPRN PRN
if BP<150
Pramipexole Dihydrochloride 0.25 mg 10/14/24 08:00 10/15/24 08:34
Pramipexole 0.25 Mg Tablet PO 11/11/24 07:59 0.25 mg
TID@0800,1400,2100 CAROLYN Administration
Quetiapine Fumarate 25 mg 10/14/24 21:00 10/14/24 21:11
Quetiapine 25 Mg Tablet PO 11/11/24 20:59 25 mg
Q24H CAROLYN Administration
Sodium Chloride 0 flush 10/13/24 23:00
Sodium Chloride 0.9% (Flush) Syringe IV 11/10/24 22:59
PER PROTOCOL CAROLYN
Sodium Chloride 0 ml 10/14/24 10:00
Sodium Chloride 0.9% (Preservative Free) 10 Ml Vial IV
PRN PRN
IV Lorazepam dilution
Protocol
Home Medications
-
Home Medications
carbidopa ER 25 mg-levodopa 100 mg tablet,extended release 3 tab PO BID@1100,1630 PARKINSON #180 tabs 12/11/23
carbidopa ER 25 mg-levodopa 100 mg tablet,extended release 4 tab PO BID@0600,2200 parkinson's disease #240 tabs 12/11/23
pramipexole 0.25 mg tablet 0.25 mg PO TID #90 tabs 12/11/23
acetaminophen 500 mg tablet 1,000 mg PO TIDPRN PRN mild pain 10/13/24
levothyroxine 75 mcg tablet 75 mcg PO DAILY@0600 Thyroid 10/13/24
lorazepam 1 mg tablet 1 mg PO TID@0600,1400,2100 Mental Health/Anxiety 10/13/24
melatonin 3 mg tablet 3 mg PO DAILYPRN PRN SLEEP 10/13/24
midodrine 2.5 mg tablet 2.5 mg PO TIDPRN PRN BP<150 10/13/24
quetiapine 25 mg tablet 25 mg PO HS 10/13/24
[2024-10-15 11:05] VITALS: BP 119/61
--- NOTE | 2024-10-15 12:36 | W.DS.TRANS ---
DC Summary - Math Coach
-
Discharge Instructions:
Discharge Diagnosis/Procedures Parkinson's disease, dopamine dysregulation
syndrome
Diet Regular
Activity As tolerated
Other Services VN,PT,OT
Instructions:
Stand-Alone Forms:
Changes to Home Medications: No
Discharge Medications:
DC Medications w/original date entered in [employer]
pramipexole 0.25 mg tablet 0.25 mg PO TID #90 tabs 12/11/23
acetaminophen 500 mg tablet 1,000 mg PO TIDPRN PRN mild pain 10/13/24
levothyroxine 75 mcg tablet 75 mcg PO DAILY@0600 Thyroid 10/13/24
melatonin 3 mg tablet 3 mg PO DAILYPRN PRN SLEEP 10/13/24
midodrine 2.5 mg tablet 2.5 mg PO TIDPRN PRN BP<150 10/13/24
quetiapine 25 mg tablet 25 mg PO HS 10/13/24
carbidopa ER 25 mg-levodopa 100 mg tablet,extended release 3 tab PO QID parkinson's disease #360 tabs 10/15/24
lorazepam 1 mg tablet 1 mg PO BID Mental Health/Anxiety #60 tabs 10/15/24
Home Medication Changes
Ativan to BID
Sinemet to 3tabs QID
Pending Results: No
Total time spent discharging patient (in min): 42
--- NOTE | 2024-10-15 13:07 | CM ---
Addendum entered by David Toledo 10/15/24 13:37:
Pt still OBS status, no IMM review required.
Original Note:
CM following re: discharge planning.
Reviewed pt's chart, met with pt and pt's at bedside.
Pt's brought to me his very unhappy feelings regrading OBS status and he is requested to take his home and he is rtequested VN services: RN, PT, OT, home health aid. A referral to VN made.
MD is aware. Discharge order noted.
Please fax discharge instructions to [facility] at [phone]
D/C plan: home with [facility] and family support. Spouse to transport.
--- NOTE | 2024-10-18 10:41 | CM ---
TC from patients spouse.
Spouse very upset and frustrated.
Per Spouse, his was recently discharged from the hospital, VN has not been out yet, he feels there is no support in the home and he can't leave to get supplies, but he cannot take his with him because she is too weak.
He does have private care 2 days a week, but stated he is unable to afford more.
Would have wanted patient to go to rehab for a bit but was admitted under observation status.
Patient discharged home with spouse with VN to follow for RN/PT/OT and USER EXPERIENCE ANALYST.
[facility] scheduled for .
CM spoke with [facility], will try and move up visit and added SW.
Asked patient if he would like resources for [facility] and he staid he tried them and they were useless.
Offered [facility], says he cannot afford.
Asked if he considered and [employer] energy attorney to help with finances and he said too expensive.
Possibly interested in Adult day care and will look into.
Spouse satisfied with [facility] trying to move up visit and SW coming to the home.
Spouse will call back if he needs anything else.
== END 2024-10-15 14:51 | disposition home health service (06) ==
LOC: 4 EAST ACU 22:51
PROVIDERS: Student in an Organized Health Care Education/Training Program; ADMITTING PHYSICIAN Internal Medicine; ATTENDING PHYSICIAN Internal Medicine; CONSULT PHYSICIAN Psychiatry & Neurology Neurology; CONSULT PHYSICIAN Psychiatry & Neurology Psychiatry; EMERGENCY PHYSICIAN Student in an Organized Health Care Education/Training Program; FAMILY PHYSICIAN Family Medicine
DX: R53.1 Weakness (principal); G20.B1 Parkinson's disease with dyskinesia, without mention of fluctuations; R26.2 Difficulty in walking, not elsewhere classified; I95.1 Orthostatic hypotension; R29.810 Facial weakness; R53.83 Other fatigue; F02.A4 Dementia in other diseases classified elsewhere, mild, with anxiety; F02.A3 Dementia in other diseases classified elsewhere, mild, with mood disturbance; I10 Essential (primary) hypertension; G93.0 Cerebral cysts; F41.1 Generalized anxiety disorder; E03.9 Hypothyroidism, unspecified; G47.00 Insomnia, unspecified; F45.8 Other somatoform disorders; M85.80 Other specified disorders of bone density and structure, unspecified site; G92.9 Unspecified toxic encephalopathy; H02.403 Unspecified ptosis of bilateral eyelids; R63.4 Abnormal weight loss; R94.31 Abnormal electrocardiogram [ECG] [EKG]; J34.1 Cyst and mucocele of nose and nasal sinus; F32.A Depression, unspecified; Z66 Do not resuscitate; Z79.890 Hormone replacement therapy; Z85.3 Personal history of malignant neoplasm of breast; Z68.1 Body mass index [BMI] 19.9 or less, adult; Z79.899 Other long term (current) drug therapy; Z87.891 Personal history of nicotine dependence; Z90.89 Acquired absence of other organs; Z90.722 Acquired absence of ovaries, bilateral
CPT/HCPCS: 70450; 70496; 70498; 70551; 80048; 80053; 80061; 81003; 81015; 82140; 82607; 83036; 84439; 84443; 84484; 85025; 85027; 92610; 93005; 97163; 97167; 97530; 97535; 99285; G0378; Q9967